=== PATIENT | female | born 1955 | race Caucasian/White ===

== ENCOUNTER → 2016-03-13 | Outpatient (CLI) | payer MEDICARE, OTHER ==
--- NOTE | 2016-03-13 15:19 | MR ---
EXAMINATION TYPE: MR lumbar spine wo con DATE OF EXAM: 03/13/2016 11:09 AM COMPARISON: NONE HISTORY: low back pain for approx. 12 months radiating into left buttocks and thigh, no known trauma / surgery. Spinal stenosis and radiculopathy per order. TECHNIQUE: Multiplanar, multisequence imaging of the lumbar spine is performed without IV contrast. FINDINGS: There is mild height loss superior L5 endplate without suspicious edema otherwise sagittal images of the lumbar spine show vertebral body heights and alignment to appear satisfactory. Multilev el disc desiccation is present. There is multilevel disc space narrowing with relative sparing of L4- L5 and L5-S1 levels. Small multilevel posterior disc herniations are seen on sagittal images. The co nus medullaris is normal in position and signal ending at inferior L1 vertebral body level. Small hem angioma superior L1 vertebral body level is noted. Mild multilevel anterior spurring is present Axial images show the T12-L1 level to a mild broad disc bulge mildly effacing the anterior thecal sac with mild facet degenerative changes and ligament flavum hypertrophy effacing the posterior lateral thecal sac on axial image 30. Bilateral neural foramina are patent. Axial images at the L1-L2 level show mild to moderate broad disc bulge effacing anterior thecal sac a nd axial image 25. Bilateral neural foramina are minimally narrowed. Axial images at L2-L3 level show mild to moderate broad disc bulge effacing anterior thecal sac on ax ial image 20. There is mild to moderate right and mild left-sided neural foraminal narrowing identifi ed at this level. Axial images at the L3-L4 level shows central disc protrusion effacing anterior thecal sac. There is mild facet degenerative changes and ligamentum flavum hypertrophy. There is mild right greater than l eft neural foraminal narrowing at this level identified. Axial images at the L4-L5 level show moderate to advanced facet degenerative changes bilaterally. The re is slight spondylolisthesis. There is broad-based central disc protrusion minimally effacing anter ior thecal sac. There is mild bilateral anterior inferior neural foraminal narrowing at this level id entified. Axial images at L5-S1 level show moderate facet degenerative changes bilaterally. There is right para central disc protrusion minimally effacing anterior thecal sac. Bilateral neural foramina are patent. IMPRESSION: Multilevel degenerative changes in the lumbar spine as detailed above.
== END | disposition home or self-care (01) ==
LOC: RADMRIMAIN 10:29
PROVIDERS: ATTEND Anesthesiology Pain Medicine
DX: M47.816 Spondylosis without myelopathy or radiculopathy, lumbar region (principal); Z87.39 Personal history of other diseases of the musculoskeletal system and connective tissue
CPT/HCPCS: 72148

== ENCOUNTER 2016-09-15 12:45 | Emergency (ER) | payer MEDICARE ==
[2016-09-15 13:08] VITALS: BP 140/69; PULSE 91; RESP 17; TEMP 98.6
--- NOTE | 2016-09-15 13:13 | ED ---
General Adult HPI - General Chief complaint: Extremity Injury, Lower Stated complaint: Fall, ankle injury Time Seen by Provider: 09/15/16 13:09 Source: patient, RN notes reviewed Mode of arrival: wheelchair Limitations: no limitations - History of Present Illness Initial comments: Patient 61-year-old female who presents emergency room today with chief complaint of needing x-rays of her right ankle. She does admit that she rolled her right ankle 5 days ago. States she went to the family doctor earlier today but they could not perform x-rays there. He states that she was [facility] and they're x-ray tech was unavailable so she came here to the emergency room. Patient does admit to pain throughout the right ankle and down to the right foot. She denies any other complaints or symptoms at this time. Patient denies any recent fever, chills, shortness of breath, chest pain, back pain, abdominal pain, nausea or vomiting, dysuria or hematuria, constipation or diarrhea, headaches or visual changes, or any other complaints. - Related Data Home Medications Medication Instructions Recorded Confirmed HYDROcodone/APAP 7.5-325MG [[place] 7.5 - 325 mg PO TID 10/19/15 09/15/16 7.5-325] Topiramate [Topamax] 100 mg PO BID 10/19/15 09/15/16 Previous Rx's Medication Instructions Recorded Hydrocodone/Acetaminophen [[place] 1 each PO Q6HR PRN #15 tab 09/15/16 5-325] Allergies Allergy/AdvReac Type Severity Reaction Status Date / Time cephalexin monohydrate Allergy Unknown Verified 09/15/16 13:37 [From Keflex] clarithromycin [From Biaxin] Allergy Unknown Verified 09/15/16 13:37 NSAIDS (Non-Steroidal Allergy Unknown Verified 09/15/16 13:37 Anti-Inflamma Review of Systems ROS Statement: Those systems with pertinent positive or pertinent negative responses have been documented in the HPI. ROS Other: All systems not noted in ROS Statement are negative. Past Medical History Past Medical History: Diabetes Mellitus, Hypertension, Osteoarthritis (OA) History of Any Multi-Drug Resistant Organisms: None Reported Past Surgical History: Orthopedic Surgery, Tonsillectomy, Tubal Ligation Additional Past Surgical History / Comment(s): cataracts Past Psychological History: Depression Smoking Status: Current every day smoker Past Alcohol Use History: None Reported Past Drug Use History: None Reported General Exam - General Exam Comments Initial Comments: General: The patient is awake and alert, in no distress, and does not appear acutely ill. Neck: The neck is supple, there is no tenderness or JVD. Cardiovascular: There is a regular rate and rhythm. No murmur, rub or gallop is appreciated. Respiratory: Lungs are clear to auscultation, respirations are non-labored, breath sounds are equal. No wheezes, stridor, rales, or rhonchi. Musculoskeletal: Patient does have bruising swelling down to the right ankle some mild swelling at this time. Patient shows good range of motion both plantar and dorsiflexion. Full range of motion of the right knee and onto the right toes. Patient does have mild tenderness on exam to the fibular head. Mild tenderness to both the lateral and medial malleolus. Mild tenderness throughout the metatarsals on exam. Sensations are intact. No tenderness down to the digits. Cap refill less than 2 seconds. Pulses bilaterally 2+. Neurological: A&O x 3. CN II-XII intact, There are no obvious motor or sensory deficits. Coordination appears grossly intact. Speech is normal. Skin: Skin is warm and dry and no rashes or lesions are noted. Psychiatric: Normal mood and affect. Limitations: no limitations Course Vital Signs 09/15/16 13:05 Temperature 98.6 F Pulse Rate 91 Respiratory 17 Rate Blood Pressure 140/69 O2 Sat by Pulse 99 Oximetry Medical Decision Making - Medical Decision Making X-rays reviewed and does show an avulsion fracture of the lateral malleolus. These results were discussed with the patient. She is advised to follow-up with orthopedics. Advised to use her crutches that she states she has at home with nonweightbearing. Advised to continue to ice elevate. Patient will be given short prescription of pain medication. Disposition Clinical Impression: Ankle fracture Disposition: HOME SELF-CARE Condition: Good Instructions: Ankle Fracture (ED) Additional Instructions: Please leave splint in place until follow-up with orthopedics over the next 2 days. Please continue to ice elevate as discussed. Please use crutches with nonweightbearing. Please be medication as prescribed and return to emergency room for any other concerns. Prescriptions: Hydrocodone/Acetaminophen [[place] 5-325] 1 each PO Q6HR PRN #15 tab PRN Reason: Pain Referrals: Giovana Warren MD [Primary Care Provider] - 1-2 days Osvaldo Garcia MD [STAFF PHYSICIAN] - 1-2 days Time of Disposition: 13:50
--- NOTE | 2016-09-15 13:33 | XR ---
EXAMINATION TYPE: XR tibia fibula RT DATE OF EXAM: 09/15/2016 COMPARISON: NONE HISTORY: Pain TECHNIQUE: Two views are submitted. FINDINGS: The osseous structures are intact. The joint spaces are preserved. Postsurgical change involving th e knee. Diffuse osteopenia noted. Cortical thickening and possible previous trauma proximal fibula. IMPRESSION: 1. No acute osseous abnormality.
--- NOTE | 2016-09-15 13:34 | XR ---
EXAMINATION TYPE: XR foot complete RT DATE OF EXAM: 09/15/2016 COMPARISON: NONE HISTORY: Pain TECHNIQUE: Three views are submitted. FINDINGS: The osseous structures are intact. There is no acute fracture or dislocation. Diffuse osteopenia and arthropathy of the first MTP joint. IMPRESSION: 1. No acute fracture or dislocation. If symptoms persist, follow-up exam in 7 to 10 days could be ob tained.
--- NOTE | 2016-09-15 13:36 | XR ---
EXAMINATION TYPE: XR ankle complete RT DATE OF EXAM: 09/15/2016 COMPARISON: NONE HISTORY: Pain FINDINGS: Three views of the ankle demonstrate the ankle mortise to be intact and symmetric. There is soft tiss ue edema and findings suggestive of an avulsion fracture lateral malleolus. Diffuse osteopenia noted. IMPRESSION: 1. Correlate for avulsion fracture lateral malleolus.
== END 2016-09-15 14:05 | disposition home or self-care (01) ==
LOC: EC 12:45
DX: S82.61XA Displaced fracture of lateral malleolus of right fibula, initial encounter for closed fracture (principal); M19.90 Unspecified osteoarthritis, unspecified site; F17.200 Nicotine dependence, unspecified, uncomplicated; Z88.1 Allergy status to other antibiotic agents; Z88.6 Allergy status to analgesic agent; Z79.891 Long term (current) use of opiate analgesic; Z79.899 Other long term (current) drug therapy; X50.1XXA Overexertion from prolonged static or awkward postures, initial encounter
CPT/HCPCS: 99283

== ENCOUNTER 2016-10-27 12:01 | Emergency (ER) | payer MEDICARE ==
[2016-10-27 12:09] VITALS: TEMP 98.2
--- NOTE | 2016-10-27 12:24 | ED ---
General Adult HPI - General Chief complaint: Recheck/Abnormal Lab/Rx Stated complaint: LEFT SIDE PAIN Time Seen by Provider: 10/27/16 12:19 Source: patient, RN notes reviewed, old records reviewed Mode of arrival: wheelchair Limitations: no limitations - History of Present Illness Initial comments: This is a 61-year-old female ER for evaluation regards to multiple complaints and issues. Patient complaining of a fall, left rib pain, left side pain. No abdominal pain, no nausea vomiting, no modifying factors or symptoms. Patient also complains of diffuse rash that appears to congophilic couple days. A chest pain shortness of breath or abdominal pain. No fevers. No bowel or bladder issues - Related Data Home Medications Medication Instructions Recorded Confirmed Gabapentin 800 mg PO TID 10/27/16 10/27/16 metFORMIN HCL 1,000 mg PO BID 10/27/16 10/27/16 Allergies Allergy/AdvReac Type Severity Reaction Status Date / Time cephalexin monohydrate Allergy Unknown Verified 10/27/16 12:39 [From Keflex] clarithromycin [From Biaxin] Allergy Unknown Verified 10/27/16 12:39 NSAIDS (Non-Steroidal Allergy Unknown Verified 10/27/16 12:39 Anti-Inflamma Review of Systems ROS Statement: Those systems with pertinent positive or pertinent negative responses have been documented in the HPI. ROS Other: All systems not noted in ROS Statement are negative. Past Medical History Past Medical History: Diabetes Mellitus, Hypertension, Osteoarthritis (OA) History of Any Multi-Drug Resistant Organisms: None Reported Past Surgical History: Orthopedic Surgery, Tonsillectomy, Tubal Ligation Additional Past Surgical History / Comment(s): cataracts Past Psychological History: Depression Smoking Status: Current every day smoker Past Alcohol Use History: None Reported Past Drug Use History: None Reported General Exam Limitations: no limitations General appearance: alert, in no apparent distress Head exam: Present: atraumatic, normocephalic, normal inspection Eye exam: Present: normal appearance, PERRL, EOMI. Absent: scleral icterus, conjunctival injection, periorbital swelling ENT exam: Present: normal exam, mucous membranes moist Neck exam: Present: normal inspection. Absent: tenderness, meningismus, lymphadenopathy Respiratory exam: Present: normal lung sounds bilaterally. Absent: respiratory distress, wheezes, rales, rhonchi, stridor Cardiovascular Exam: Present: regular rate, normal rhythm, normal heart sounds. Absent: systolic murmur, diastolic murmur, rubs, gallop, clicks GI/Abdominal exam: Present: soft, normal bowel sounds. Absent: distended, tenderness, guarding, rebound, rigid Extremities exam: Present: normal inspection, full ROM, normal capillary refill. Absent: tenderness, pedal edema, joint swelling, calf tenderness Back exam: Present: normal inspection Neurological exam: Present: alert, oriented X3, CN II-XII intact Psychiatric exam: Present: normal affect, normal mood Skin exam: Present: warm, dry, intact, normal color. Absent: rash Course Vital Signs 10/27/16 10/27/16 12:04 13:32 Temperature 98.2 F Pulse Rate 101 H 80 Respiratory 18 16 Rate Blood Pressure 144/78 163/87 O2 Sat by Pulse 100 96 Oximetry - Reevaluation(s) Reevaluation #1: 10/27/16 14:25 At this time patient symptoms are unchanged EKG Findings - EKG Comments: EKG Findings:: EKG shows normal sinus rhythm of 79, [place] 144, QRS 92, QTC 396 Medical Decision Making - Medical Decision Making 61 female at EMS status post fall and weakness. Patient complaining of rash. Rash is not visible at this time. Patient has left rib contusion, x-rays and laboratory otherwise negative. Patient will be discharged home - Lab Data Result diagrams: 10/27/16 13:25 10/27/16 13:25 Lab Results 10/27/16 10/27/16 10/27/16 Range/Units 13:25 13:25 13:25 WBC 5.0 (3.8-10.6) k/uL RBC 4.05 (3.80-5.40) m/uL Hgb 12.7 (11.4-16.0) gm/dL Hct 37.8 (34.0-46.0) % MCV 93.2 (80.0-100.0) fL MCH 31.3 (25.0-35.0) pg MCHC 33.6 (31.0-37.0) g/dL RDW 15.0 (11.5-15.5) % Plt Count 213 (150-450) k/uL Neutrophils % 74 % Lymphocytes % 21 % Monocytes % 3 % Eosinophils % 1 % Basophils % 0 % Neutrophils # 3.7 (1.3-7.7) k/uL Lymphocytes # 1.1 (1.0-4.8) k/uL Monocytes # 0.2 (0-1.0) k/uL Eosinophils # 0.0 (0-0.7) k/uL Basophils # 0.0 (0-0.2) k/uL Sodium 137 (137-145) mmol/L Potassium 4.9 (3.5-5.1) mmol/L Chloride 103 (98-107) mmol/L Carbon Dioxide 25 (22-30) mmol/L Anion Gap 9 mmol/L BUN 10 (7-17) mg/dL Creatinine 0.50 L (0.52-1.04) mg/dL Est GFR (MDRD) Af Amer >60 (>60 ml/min/1.73 sqM) Est GFR (MDRD) Non-Af >60 (>60 ml/min/1.73 sqM) Glucose 122 H (74-99) mg/dL Calcium 9.3 (8.4-10.2) mg/dL Phosphorus 4.4 (2.5-4.5) mg/dL Magnesium 1.3 L (1.6-2.3) mg/dL Total Bilirubin 0.4 (0.2-1.3) mg/dL AST 22 (14-36) U/L ALT 29 (9-52) U/L Alkaline Phosphatase 64 (38-126) U/L Total Creatine Kinase 24 L (30-135) U/L CK-MB (CK-2) 0.6 (0.0-2.4) ng/mL CK-MB (CK-2) Rel Index 2.5 Troponin I <0.012 (0.000-0.034) ng/mL Total Protein 6.3 (6.3-8.2) g/dL Albumin 3.6 (3.5-5.0) g/dL - Radiology Data Radiology results: report reviewed (X-ray RIBS study, chest is negative for acute fracture or traumatic injury), image reviewed Disposition Clinical Impression: Weakness, Fall, Rib contusion Disposition: HOME SELF-CARE Condition: Good Instructions: Fall Prevention for Older Adults (ED) Referrals: Giovana Warren MD [Primary Care Provider] - 1-2 days
[2016-10-27] MEDS ORDERED: SODIUM CHLORIDE 0.9% 1,000 ML IV STA (13:05)
[2016-10-27] MEDS ORDERED: MORPHINE SULFATE 4 MG/ML SYRINGE IV STA (13:05)
[2016-10-27 13:39] LABS: Basophils % (A) 0 %; CH 32.1; CHCM 34.6; Eosinophils % (A) 1 %; HCT 37.8 % (34.0-46.0); HDW 2.81; HGB 12.7 gm/dL (11.4-16.0); Luc # (Auto) 0.06; Luc % (Auto) 1; Lymphocytes # (A) 1.1 k/uL (1.0-4.8); Lymphocytes % (A) 21 %; MCH 31.3 pg (25.0-35.0); MCHC 33.6 g/dL (31.0-37.0); MCV 93.2 fL (80.0-100.0); Mean Platelet Volume 7.4; Monocytes # (A) 0.2 k/uL (0-1.0); Monocytes % (A) 3 %; Neutrophils # (A) 3.7 k/uL (1.3-7.7); Neutrophils % (A) 74 %; RBC 4.05 m/uL (3.80-5.40); WBC (Perox) 4.99
--- NOTE | 2016-10-27 14:00 | XR ---
EXAMINATION TYPE: XR ribs LT w pa chest xray DATE OF EXAM: 10/27/2016 COMPARISON: NONE HISTORY: Pain left ribs TECHNIQUE: 3 views submitted FINDINGS: Lungs are clear. No pneumothorax. Mild diffuse osteopenia. Arthropathy of the shoulders. Hy pertrophic and degenerative change of the spine. No consolidation. Rib cage is intact. IMPRESSION: 1. No acute displaced rib fracture. 2. Shoulder arthropathy. Findings may been the basis of hypertrophic arthropathy. Osteochondroma less likely consideration and in the differential diagnosis.
[2016-10-27 14:01] LABS: ALT 29 U/L (9-52); AST 22 U/L (14-36); Alkaline Phosphatase 64 U/L (38-126); Anion Gap 9 mmol/L; Blood Urea Nitrogen 10 mg/dL (7-17); Calcium 9.3 mg/dL (8.4-10.2); Carbon Dioxide 25 mmol/L (22-30); Chloride 103 mmol/L (98-107); Creatine Kinase 24 U/L (30-135); Glucose 122 mg/dL (74-99); Magnesium 1.3 mg/dL (1.6-2.3); Non-African American GFR(MDRD) >60 (>60 ml/min/1.73 sqM); Phosphorous 4.4 mg/dL (2.5-4.5); Sodium 137 mmol/L (137-145); Total Bilirubin 0.4 mg/dL (0.2-1.3); Total Protein 6.3 g/dL (6.3-8.2)
[2016-10-27 14:13] LABS: Creatine Kinase MB 0.6 ng/mL (0.0-2.4); Troponin I <0.012 ng/mL (0.000-0.034)
[2016-10-27 14:27] LABS: Potassium 4.9 mmol/L (3.5-5.1)
[2016-10-27 14:56] VITALS: BP 147/79; PULSE 72; RESP 18
== END 2016-10-27 14:56 | disposition home or self-care (01) ==
LOC: EC 12:01
DX: S20.212A Contusion of left front wall of thorax, initial encounter (principal); R53.1 Weakness; E11.9 Type 2 diabetes mellitus without complications; F17.200 Nicotine dependence, unspecified, uncomplicated; Z79.84 Long term (current) use of oral hypoglycemic drugs; Z79.899 Other long term (current) drug therapy; Z88.1 Allergy status to other antibiotic agents; Z88.6 Allergy status to analgesic agent; W19.XXXA Unspecified fall, initial encounter
CPT/HCPCS: 36415; 93005; 80053; 82550; 82553; 83735; 84100; 84484; 85025; 71101; 99284; 96374; 96361; J2270

== ENCOUNTER 2018-08-02 15:31 | Emergency (ER) | payer MEDICARE ==
[2018-08-02 17:02] LABS: Basophils % (A) 0 %; Eosinophils # (A) 0.1 k/uL (0-0.7); Eosinophils % (A) 1 %; HCT 41.4 % (34.0-46.0); HGB 14.3 gm/dL (11.4-16.0); Lymphocytes # (A) 1.9 k/uL (1.0-4.8); Lymphocytes % (A) 21 %; MCHC 34.5 g/dL (31.0-37.0); MCV 89.8 fL (80.0-100.0); Mean Platelet Volume 7.8; Monocytes # (A) 0.3 k/uL (0-1.0); Monocytes % (A) 3 %; Neutrophils # (A) 6.8 k/uL (1.3-7.7); Neutrophils % (A) 74 %; Platelet Count 177 k/uL (150-450); RBC 4.61 m/uL (3.80-5.40); RDW 12.9 % (11.5-15.5); WBC 9.2 k/uL (3.8-10.6)
[2018-08-02 17:04] LABS: ALT 12 U/L (9-52); AST 20 U/L (14-36); Albumin 4.9 g/dL (3.5-5.0); Alkaline Phosphatase 64 U/L (38-126); Anion Gap 12 mmol/L; Blood Urea Nitrogen 9 mg/dL (7-17); Carbon Dioxide 24 mmol/L (22-30); Chloride 98 mmol/L (98-107); Glucose 114 mg/dL (74-99); Potassium 4.7 mmol/L (3.5-5.1); Sodium 134 mmol/L (137-145); Total Bilirubin 0.5 mg/dL (0.2-1.3); Total Protein 7.4 g/dL (6.3-8.2)
[2018-08-02] MEDS ORDERED: ONDANSETRON 4 MG/2 ML VIAL IVP STA (17:14)
[2018-08-02] MEDS ORDERED: SODIUM CHLORIDE 0.9% 1,000 ML IV ONE (17:14)
[2018-08-02] MEDS ORDERED: MORPHINE SULFATE 4 MG/ML SYRINGE IVP STA (17:14)
[2018-08-02 17:19] LABS: Appearance,Urine Clear (Clear); Bilirubin,Urine Negative (Negative); Blood,Urine Trace (Negative); Color,Urine Light Yellow; Glucose,Urine (UA) Negative (Negative); Ketones,Urine 2+ (Negative); Leukocyte Esterase,Urine Negative (Negative); Mucus,Urine Rare /hpf; Nitrite,Urine Negative (Negative); PH, Urine 5.5 (5.0-8.0); Protein,Urine Negative (Negative); RBC,Urine <1 /hpf (0-5); Specific Gravity,Urine 1.015 (1.001-1.035); Squamous Epithelial Cell,Urine 1 /hpf (0-4); Urobilinogen,Urine <2.0 mg/dL (<2.0); WBC,Urine 1 /hpf (0-5)
--- NOTE | 2018-08-02 17:19 | ED ---
General Adult HPI - General Chief complaint: Fever Stated complaint: Fever, Diarrhea, cough Time Seen by Provider: 08/02/18 17:02 Source: patient Mode of arrival: wheelchair Limitations: no limitations - History of Present Illness Initial comments: 63-year-old female patient presents to the emergency department today for evaluation of multiple complaints. Patient states that she has been sick for the last week and a half. Patient states she is having nasal congestion and drainage, cough, fever, and chills. Patient states she has also been having d iarrhea intermittently over the last week and a half. States she has had no appetite and hasn't eaten or drank anything since Tuesday. Patient states she has not checked her temperature but has felt chilled and then very hot. Patient states that her cough is productive of clear sputum. She denies any shortness of breath or chest pain with this. States that she is having bilateral ear pressure and pain as well. States she feels generally weak and unwell. Patient denies any recent rash, abdominal pain, nausea, vomiting, numbness, tingling, dizziness, weakness, hematuria, dysuria, urinary urgency, urinary frequency, headache, visual changes, or any other complaints. - Related Data Home Medications Medication Instructions Recorded Confirmed Gabapentin 800 mg PO TID 10/27/16 08/02/18 DULoxetine HCL [Cymbalta] 60 mg PO BID 08/02/18 08/02/18 Ezetimibe [Zetia] 10 mg PO DAILY@1700 08/02/18 08/02/18 HYDROcodone/APAP 10-325MG [[place] 1 tab PO QID 08/02/18 08/02/18 10-325] Levothyroxine Sodium [Synthroid] 25 mcg PO DAILY 08/02/18 08/02/18 Morphine Sulfate ER [Ms Contin] 30 mg PO BID 08/02/18 08/02/18 levETIRAcetam [Keppra] 1,000 mg PO BID 08/02/18 08/02/18 metFORMIN HCL [Glucophage] 500 mg PO BID 08/02/18 08/02/18 traZODone HCL 100 mg PO HS 08/02/18 08/02/18 Previous Rx's Medication Instructions Recorded Promethazine 6.25MG/5Ml [Phenergan 6.25 mg PO Q6H #100 ml 08/02/18 Syrup] predniSONE 50 mg PO DAILY #5 tablet 08/02/18 Allergies Allergy/AdvReac Type Severity Reaction Status Date / Time cephalexin monohydrate Allergy Unknown Verified 08/02/18 17:32 [From Keflex] Cephalosporins Allergy Unknown Verified 08/02/18 17:32 clarithromycin [From Biaxin] Allergy Unknown Verified 08/02/18 17:32 NSAIDS (Non-Steroidal Allergy Unknown Verified 08/02/18 17:32 Anti-Inflamma Review of Systems ROS Statement: Those systems with pertinent positive or pertinent negative responses have been documented in the HPI. ROS Other: All systems not noted in ROS Statement are negative. Past Medical History Past Medical History: Diabetes Mellitus, Hypertension, Osteoarthritis (OA) History of Any Multi-Drug Resistant Organisms: None Reported Past Surgical History: Orthopedic Surgery, Tonsillectomy, Tubal Ligation Additional Past Surgical History / Comment(s): cataracts Past Psychological History: Depression Smoking Status: Current every day smoker Past Alcohol Use History: None Reported Past Drug Use History: None Reported General Exam Limitations: no limitations General appearance: alert, in no apparent distress, other (This is a well- developed, thin appearing adult female patient in no acute distress. Vital signs upon presentation are temperature 98.6F, pulse 89, respirations 18, blood pressure 142/95, pulse ox 97% on room air.) Eye exam: Present: normal appearance, PERRL, EOMI. Absent: scleral icterus, conjunctival injection, periorbital swelling ENT exam: Present: normal exam, normal oropharynx, mucous membranes moist, TM's normal bilaterally Neck exam: Present: normal inspection. Absent: tenderness, meningismus, lymphadenopathy Respiratory exam: Present: normal lung sounds bilaterally. Absent: respiratory distress, wheezes, rales, rhonchi, stridor Cardiovascular Exam: Present: regular rate, normal rhythm, normal heart sounds. Absent: systolic murmur, diastolic murmur, rubs, gallop, clicks GI/Abdominal exam: Present: soft, normal bowel sounds. Absent: distended, tenderness, guarding, rebound, rigid Neurological exam: Present: alert, oriented X3, CN II-XII intact Psychiatric exam: Present: normal affect, normal mood Skin exam: Present: warm, dry, intact, normal color. Absent: rash Course Vital Signs 08/02/18 15:46 Temperature 98.6 F Pulse Rate 89 Respiratory 18 Rate Blood Pressure 142/95 O2 Sat by Pulse 97 Oximetry Medical Decision Making - Medical Decision Making 63-year-old female patient presented to the emergency department today for evaluation of cough, nasal congestion, and diarrhea. Physical examination revealed clear equal lung sounds. Soft nontender abdomen. She is afebrile with normal vital signs. Labs reviewed and were unremarkable. Normal white blood cell count. No evidence for urinary tract infection. Chest x-ray was obtained and showed no acute cardiopulmonary process. Patient symptoms are consistent with acute bronchitis and viral upper respiratory infection. She'll be started on prednisone and Phenergan for cough. She is instructed to follow-up with her primary care physician for recheck in 1-2 days. Return parameters were discussed in detail. She verbalizes understanding and agrees this plan. - Lab Data Result diagrams: 08/02/18 16:40 08/02/18 16:40 Lab Results 08/02/18 08/02/18 08/02/18 Range/Units 16:40 16:40 16:40 WBC 9.2 (3.8-10.6) k/uL RBC 4.61 (3.80-5.40) m/uL Hgb 14.3 (11.4-16.0) gm/dL Hct 41.4 (34.0-46.0) % MCV 89.8 (80.0-100.0) fL MCH 31.0 (25.0-35.0) pg MCHC 34.5 (31.0-37.0) g/dL RDW 12.9 (11.5-15.5) % Plt Count 177 (150-450) k/uL Neutrophils % 74 % Lymphocytes % 21 % Monocytes % 3 % Eosinophils % 1 % Basophils % 0 % Neutrophils # 6.8 (1.3-7.7) k/uL Lymphocytes # 1.9 (1.0-4.8) k/uL Monocytes # 0.3 (0-1.0) k/uL Eosinophils # 0.1 (0-0.7) k/uL Basophils # 0.0 (0-0.2) k/uL Sodium 134 L (137-145) mmol/L Potassium 4.7 (3.5-5.1) mmol/L Chloride 98 (98-107) mmol/L Carbon Dioxide 24 (22-30) mmol/L Anion Gap 12 mmol/L BUN 9 (7-17) mg/dL Creatinine 0.54 (0.52-1.04) mg/dL Est GFR (CKD-EPI)AfAm >90 (>60 ml/min/1.73 sqM) Est GFR (CKD-EPI)NonAf >90 (>60 ml/min/1.73 sqM) Glucose 114 H (74-99) mg/dL Calcium 10.0 (8.4-10.2) mg/dL Total Bilirubin 0.5 (0.2-1.3) mg/dL AST 20 (14-36) U/L ALT 12 (9-52) U/L Alkaline Phosphatase 64 (38-126) U/L Total Protein 7.4 (6.3-8.2) g/dL Albumin 4.9 (3.5-5.0) g/dL Urine Color Light Yellow Urine Appearance Clear (Clear) Urine pH 5.5 (5.0-8.0) Ur Specific Roby 1.015 (1.001-1.035) Urine Protein Negative (Negative) Urine Glucose (UA) Negative (Negative) Urine Ketones 2+ H (Negative) Urine Blood Trace H (Negative) Urine Nitrite Negative (Negative) Urine Bilirubin Negative (Negative) Urine Urobilinogen <2.0 (<2.0) mg/dL Ur Leukocyte Esterase Negative (Negative) Urine RBC <1 (0-5) /hpf Urine WBC 1 (0-5) /hpf Ur Squamous Epith Cells 1 (0-4) /hpf Urine Mucus Rare H (None) /hpf - Radiology Data Radiology results: report reviewed, image reviewed Two-view x-ray of the chest is obtained. Report reviewed in its entirety. Impression by Dr. Joanna Barone shows no acute process. Disposition Clinical Impression: Viral syndrome, Acute bronchitis Disposition: HOME SELF-CARE Condition: Good Instructions (If sedation given, give patient instructions): Acute Bronchitis (ED), Viral Syndrome (ED) Additional Instructions: Take medications as directed. Follow up with your primary care physician for recheck in 1-2 days. Return to the emergency department immediately for any new, worsening, or concerning symptoms. Prescriptions: Promethazine 6.25MG/5Ml [Phenergan Syrup] 6.25 mg PO Q6H #100 ml predniSONE 50 mg PO DAILY #5 tablet Is patient prescribed a controlled substance at d/c from ED?: No Referrals: None,Stated [Primary Care Provider] - 1-2 days Time of Disposition: 18:55
--- NOTE | 2018-08-02 18:32 | XR ---
EXAMINATION: XR chest 2V DATE AND TIME: 08/02/2018 5:37 PM CLINICAL INDICATION: PHH; Pain TECHNIQUE: Departmental protocol COMPARISON: 10/27/2016 FINDINGS: The lungs are clear. The pleural spaces are negative. The cardiac silhouette is not enlarged. The remainder of the mediastinal silhouette is unremarkable. The skeletal structures and soft tissues are negative for acute findings. IMPRESSION: NO ACUTE PROCESS.
[2018-08-02] MEDS ORDERED: predniSONE 50 MG TAB PO STA (18:51)
[2018-08-02 19:43] VITALS: BP 147/88; PULSE 88; RESP 16; TEMP 97.6
== END 2018-08-02 19:43 | disposition home or self-care (01) ==
LOC: EC 15:31
DX: B34.9 Viral infection, unspecified (principal); J20.9 Acute bronchitis, unspecified; E11.9 Type 2 diabetes mellitus without complications; M19.90 Unspecified osteoarthritis, unspecified site; F32.9 Major depressive disorder, single episode, unspecified; F17.200 Nicotine dependence, unspecified, uncomplicated; Z79.891 Long term (current) use of opiate analgesic; Z79.890 Hormone replacement therapy; Z79.84 Long term (current) use of oral hypoglycemic drugs; Z79.899 Other long term (current) drug therapy; Z88.1 Allergy status to other antibiotic agents; Z88.6 Allergy status to analgesic agent; Z53.29 Procedure and treatment not carried out because of patient's decision for other reasons
CPT/HCPCS: 36415; 80053; 85025; 81001; 71046; 99283; 96374; 96375; 96361 ×2; J2270; J2405

== ENCOUNTER → 2019-04-06 | Outpatient (CLI) | payer MEDICARE, OTHER ==
--- NOTE | 2019-04-06 08:03 | MR ---
MRI CERVICAL SPINE: CLINICAL HISTORY: Cervical stenosis and HNP per order. Headaches with neck pain for over 20 years cau sing pain or weakness into both arms and fingers per patient. TECHNIQUE: Multiplanar, multisequence imaging of the cervical spine is performed without and with IV contrast, 4.5 cc of gadolinium was given intravenously. COMPARISON: None at this institution.. FINDINGS: Sagittal images of the cervical spine show the craniocervical junction to appear within nor mal limits. The cervical and upper thoracic spinal cord is normal in caliber and signal. Slight grad e 1 retrolisthesis C5 on C6. The vertebral body heights are normal. Mild to moderate disc space leslie rowing C5-C6 level. The bone marrow signal intensity is within normal limits. No suspicious enhanceme nt is seen. Axial images show the C2-C3 level to appear within normal limits. Axial images at C3-C4 level shows tiny central disc protrusion minimally effacing anterior thecal sac . Axial images at C4-C5 level showed broad based posterior disc protrusion mildly effacing the anterior thecal sac and causing perhaps mild bilateral neural foraminal narrowing. Axial images at C5-C6 levels with spondylolisthesis with broad based right paracentral disc protrusio n effacing anterior thecal sac and causing moderate to severe bilateral neural foraminal narrowing. Axial images at C6-C7 level due to mild broad based disc protrusion mildly facing anterior thecal sac and causing [id number] left greater than right bilateral neural foraminal narrowing. Axial images at C7-T1 level show focal central disc protrusion mildly effacing the anterior thecal sa c, bilateral neural foramina are patent. IMPRESSION: Spondylolisthesis and degenerative change most prominent C5-C6 level as detailed above. A dditional multilevel more mild degenerative changes are noted as detailed above.
== END | disposition home or self-care (01) ==
LOC: RADMRIMAIN 07:08
PROVIDERS: ATTEND Anesthesiology Pain Medicine
DX: M48.02 Spinal stenosis, cervical region (principal); M50.21 Other cervical disc displacement, high cervical region; M43.12 Spondylolisthesis, cervical region; M47.812 Spondylosis without myelopathy or radiculopathy, cervical region
CPT/HCPCS: 72156; A9585

== ENCOUNTER 2022-09-05 16:46 | Inpatient (IN) | payer MEDICARE, OTHER ==
[2022-09-05] MEDS ORDERED: HEPARIN SODIUM 1,000 UN/ML (10ML VL) IV PRN (17:22)
[2022-09-05] MEDS ORDERED: HEPARIN SODIUM 1,000 UN/ML (10ML VL) IV ONE (17:22)
[2022-09-05] MEDS ORDERED: HEPARIN SOD,PORK IN 0.45% NACL 25,000 UNIT in 0.45% NACL 1 250ML.BAG IV SCH (17:30)
[2022-09-05] MEDS ORDERED: MORPHINE SULFATE 4 MG/ML SYRINGE IV STA (17:33)
[2022-09-05] MEDS ORDERED: ASPIRIN 81 MG PO STA (17:33)
--- NOTE | 2022-09-05 17:42 | XR ---
EXAMINATION TYPE: XR chest 1V portable DATE OF EXAM: 09/05/2022 COMPARISON: 08/02/2018 HISTORY: Chest pain TECHNIQUE: Single frontal view of the chest is obtained. FINDINGS: There is no focal air space opacity, pleural effusion, or pneumothorax seen. The cardiac silhouette size is within normal limits. The osseous structures are intact. IMPRESSION: No acute process.
[2022-09-05 17:44] LABS: Basophils % (A) 0 %; Eosinophils # (A) 0.1 k/uL (0-0.7); Eosinophils % (A) 2 %; HGB 12.7 gm/dL (11.4-16.0); Lymphocytes # (A) 0.8 k/uL (1.0-4.8); Lymphocytes % (A) 13 %; MCH 33.6 pg (25.0-35.0); MCHC 34.3 g/dL (31.0-37.0); Mean Platelet Volume 7.6; Monocytes # (A) 0.1 k/uL (0-1.0); Monocytes % (A) 2 %; Neutrophils # (A) 5.4 k/uL (1.3-7.7); Neutrophils % (A) 83 %; Platelet Count 164 k/uL (150-450); RBC 3.77 m/uL (3.80-5.40); RDW 12.3 % (11.5-15.5); WBC 6.5 k/uL (3.8-10.6)
[2022-09-05 17:57] LABS: ALT 16 U/L (4-34); African American GFR (CKD) >90 (>60 ml/min/1.73 sqM); Albumin 4.6 g/dL (3.5-5.0); Anion Gap 15 mmol/L; Blood Urea Nitrogen 12 mg/dL (7-17); Calcium 9.3 mg/dL (8.4-10.2); Carbon Dioxide 23 mmol/L (22-30); Chloride 97 mmol/L (98-107); Glucose 160 mg/dL (74-99); Lipase 17 U/L (23-300); Non-African American GFR(CKD) >90 (>60 ml/min/1.73 sqM); Sodium 135 mmol/L (137-145); Total Bilirubin 0.9 mg/dL (0.2-1.3); Total Protein 7.2 g/dL (6.3-8.2)
[2022-09-05 18:01] LABS: AST 31 U/L (14-36); Alkaline Phosphatase 59 U/L (38-126); Potassium 4.3 mmol/L (3.5-5.1)
--- NOTE | 2022-09-05 18:09 | ED ---
General Adult HPI - General Chief complaint: Shortness of Breath Stated complaint: ERWIN Time Seen by Provider: 09/05/22 16:52 Source: patient Mode of arrival: wheelchair - History of Present Illness Initial comments: Dictation was produced using [employer] dictation software. please excuse any grammatical, word or spelling errors. Chief Complaint: 67-year-old female past medical history of diabetes and hypertension presents to the ER for acute shortness of breath History of Present Illness: Patient 67-year-old female presents emergency part for acute onset shortness of breath. Patient states she woke last night feeling short of breath. Denies any chest pain. Denies any associated diaphoresis or nausea. Denies any back pain. Patient does not have any history of coronary disease. No family history of heart attacks. Denies any history of COPD or chr onic pulmonary disease The ROS documented in this emergency department record has been reviewed and confirmed by me. Those systems with pertinent positive or negative responses have been documented in the HPI. All other systems are other negative and/or noncontributory. - Related Data Home Medications Medication Instructions Recorded Confirmed Gabapentin 800 mg PO TID 10/27/16 09/05/22 DULoxetine HCL [Cymbalta] 120 mg PO DAILY 08/02/18 09/05/22 levETIRAcetam [Keppra] 1,000 mg PO BID 08/02/18 09/05/22 metFORMIN HCL [Glucophage] 500 mg PO BID 08/02/18 09/05/22 traZODone HCL 200 mg PO HS 08/02/18 09/05/22 Levothyroxine Sodium [Synthroid] 50 mcg PO DAILY 09/05/22 09/05/22 Methadone [Dolophine] 10 mg PO TID 09/05/22 09/05/22 Montelukast [Singulair] 10 mg PO DAILY 09/05/22 09/05/22 oxyCODONE-APAP 10-325MG [Percocet 1 tab PO TID 09/05/22 09/05/22 10-325 mg] Allergies Allergy/AdvReac Type Severity Reaction Status Date / Time cephalexin monohydrate Allergy Unknown Verified 09/05/22 18:45 [From Keflex] Cephalosporins Allergy Unknown Verified 09/05/22 18:45 clarithromycin [From Biaxin] Allergy Unknown Verified 09/05/22 18:45 NSAIDS (Non-Steroidal Allergy Unknown Verified 09/05/22 18:45 Anti-Inflamma Review of Systems ROS Statement: Those systems with pertinent positive or pertinent negative responses have been documented in the HPI. ROS Other: All systems not noted in ROS Statement are negative. Past Medical History Past Medical History: Diabetes Mellitus, Hypertension, Osteoarthritis (OA) History of Any Multi-Drug Resistant Organisms: None Reported Past Surgical History: Orthopedic Surgery, Tonsillectomy, Tubal Ligation Additional Past Surgical History / Comment(s): cataracts Past Psychological History: Depression Smoking Status: Former smoker Past Alcohol Use History: None Reported Past Drug Use History: None Reported General Exam - General Exam Comments Initial Comments: PHYSICAL EXAM: General Impression: Alert and oriented x3, not in acute distress HEENT: Normocephalic atraumatic, extra-ocular movements intact, pupils equal and reactive to light bilaterally, mucous membranes moist. Cardiovascular: Heart regular rate and rhythm Chest: Able to complete full sentences, no retractions, no tachypnea Abdomen: abdomen soft, non-tender, non-distended, no organomegaly Musculoskeletal: Pulses present and equal in all extremities, no peripheral edema Motor: no focal deficits noted Neurological: CN II-XII grossly intact, no focal motor or sensory deficits noted Skin: Intact with no visualized rashes Psych: Normal affect and mood Course Vital Signs 09/05/22 09/05/22 09/05/22 16:48 17:20 18:31 Temperature 98.6 F 98.5 F Pulse Rate 104 H 94 Respiratory 22 25 H 20 Rate Blood Pressure 159/85 166/101 O2 Sat by Pulse 99 97 Oximetry 09/05/22 09/05/22 19:21 21:00 Temperature Pulse Rate 89 78 Respiratory 16 12 Rate Blood Pressure 171/99 165/87 O2 Sat by Pulse 97 96 Oximetry - Reevaluation(s) Reevaluation #1: 09/05/22 18:09. Clinical presentation, vitals and EKG was discussed with Dr. Ruiz on-call for cardiology. 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 Interval 27, QRS 132, QTc 4:30, left bundle branch block. No NH prolongation, no QTC prolongation, no ST or T-wave changes noted. No sgarbossa criteria to suggest [place] in setting of left bundle branch block. Overall, this EKG is unremarkable. Repeat EKG was performed 8 minutes after the initial EKG without any dynamic changes. Medical Decision Making - Medical Decision Making Was pt. sent in by a medical professional or institution (GARRY Bernal, FORENSIC ECONOMIST, urgent care, hospital, or snf...) When possible be specific @ -No Did you speak to anyone other than the patient for history (EMS, parent, family, police, friend...)? What history was obtained from this source @ -No Did you review nursing and triage notes (agree or disagree)? Why? @ -I reviewed and agree with nursing and triage notes Were old charts reviewed (outside hosp., previous admission, EMS record, old E KG, old radiological studies, urgent care reports/EKG's, snf records)? Report findings @ -No old charts were reviewed Differential Diagnosis (chest pain, altered mental status, abdominal pain women, abdominal pain men, vaginal bleeding, musculoskeletal, weakness, fever, dyspnea, syncope, headache, dizziness, GI bleed, back pain, seizure, CVA, palpatations, mental health)? @ -Differential Dyspnea: Coronary syndrome, arrhythmia, tamponade, asthma, COPD, pulmonary embolism, pneumonia, pneumothorax, pulmonary effusion, anaphylaxis, diabetic ketoacidosis, flailed chest, pulmonary contusion, diaphragmatic rupture, anemia, neuromu scular, this is not meant to be an all-inclusive list. EKG interpreted by me (3pts min.). @ -See above X-rays interpreted by me (1pt min.). @ -Chest x-ray shows no acute processes CT interpreted by me (1pt min.). @ -CT angiography of the chest shows cardiomegaly with pleural effusion suggesting congestive heart failure. This period be some groundglass airspace opacities within the left upper lobe. U/S interpreted by me (1pt. min.). @ -None done What testing was considered but not performed or refused? (CT, X-rays, U/S, l abs)? Why? @ -None What meds were considered but not given or refused? Why? @ -None Did you discuss the management of the patient with other professionals (professionals i.e. , GARRY, FORENSIC ECONOMIST, lab, RT, psych nurse, high school social studies teacher, automotive parts salesperson, teacher, forest fire management officer, major case detective)? Give summary @ -EKG was discussed with on-call cardiology. Admission was discussed with [facility] hospitalist group Was smoking cessation discussed for >3mins.? @ -No Was critical care preformed (if so, how long)? @ -yes, 33 minutes Were there social determinants of health that impacted care today? How? (Homelessness, low income, unemployed, alcoholism, drug addiction, transportation, low edu. Level, literacy, decrease access to med. care, [facility], rehab)? @ -No Was there de-escalation of care discussed even if they declined (Discuss DNR or withdrawal of care, Hospice)? DNR status @ -No What co-morbidities impacted this encounter? (DM, HTN, Smoking, COPD, CAD, Cancer, CVA, ARF, Chemo, Hep., AIDS, mental health diagnosis, sleep apnea, m orbid obesity)? @ -None Was patient admitted / discharged? Hospital course, mention meds given and route, prescriptions, significant lab abnormalities, going to OR and other pertinent info. @ -67 Year-old female presents to the emergency department for worsening dyspnea. She did have an exertional component making her clinical presentation suspicious for acute coronary syndrome. EKG shows no left bundle branch block without any obvious signs of ischemia. Cardiology reviewed the EKG and Rrts was not indicated for activation. Vital signs upon arrival are within acceptable limits. CBC is unremarkable. Metabolic panel shows elevated function. D-dimer is elevated 1.22. Metabolic panels within about acceptable limits. Prematurity peptide pending. Patient given Lasix. Patient reevaluated at 9:00 PM with improvement of symptoms. Click or presentation consistent with new-onset cardiomyopathy. Patient on heparin for concerns of acute coronary syndrome. Patient will be admitted. Undiagnosed new problem with uncertain prognosis? @ -No Drug Therapy requiring intensive monitoring for toxicity (Heparin, Nitro, Insulin, Cardizem)? @ -No Were any procedures done? @ -No Diagnosis/symptom? Acute, or Chronic, or Acute on Chronic? Uncomplicated (without systemic symptoms) or Complicated (systemic symptoms)? @ -New-onset heart failure Side effects of treatment? @ -No Exacerbation, Progression, or Severe Exacerbation? @ -No Poses a threat to life or bodily function? How? (Chest pain, [place], FL, pneumonia, PE, COPD, DKA, ARF, appy, cholecystitis, CVA, Diverticulitis, Homicidal, Suicidal, threat to staff... and all critical care pts) @ -yes - Lab Data Result diagrams: 09/05/22 17:32 09/05/22 17:32 Lab Results 09/05/22 09/05/22 09/05/22 Range/Units 17:32 17:32 17:32 WBC 6.5 (3.8-10.6) k/uL RBC 3.77 L (3.80-5.40) m/uL Hgb 12.7 (11.4-16.0) gm/dL Hct 37.0 (34.0-46.0) % MCV 98.0 (80.0-100.0) fL MCH 33.6 (25.0-35.0) pg MCHC 34.3 (31.0-37.0) g/dL RDW 12.3 (11.5-15.5) % Plt Count 164 (150-450) k/uL MPV 7.6 Neutrophils % 83 % Lymphocytes % 13 % Monocytes % 2 % Eosinophils % 2 % Basophils % 0 % Neutrophils # 5.4 (1.3-7.7) k/uL Lymphocytes # 0.8 L (1.0-4.8) k/uL Monocytes # 0.1 (0-1.0) k/uL Eosinophils # 0.1 (0-0.7) k/uL Basophils # 0.0 (0-0.2) k/uL PT (9.0-12.0) sec INR (<1.2) APTT (22.0-30.0) sec D-Dimer (<0.60) mg/L FEU Sodium 135 L (137-145) mmol/L Potassium 4.3 (3.5-5.1) mmol/L Chloride 97 L (98-107) mmol/L Carbon Dioxide 23 (22-30) mmol/L Anion Gap 15 mmol/L BUN 12 (7-17) mg/dL Creatinine 0.44 L (0.52-1.04) mg/dL Est GFR (CKD-EPI)AfAm >90 (>60 ml/min/1.73 sqM) Est GFR (CKD-EPI)NonAf >90 (>60 ml/min/1.73 sqM) Glucose 160 H (74-99) mg/dL Calcium 9.3 (8.4-10.2) mg/dL Magnesium 1.0 L (1.6-2.3) mg/dL Total Bilirubin 0.9 (0.2-1.3) mg/dL AST 31 (14-36) U/L ALT 16 (4-34) U/L Alkaline Phosphatase 59 (38-126) U/L Troponin I 0.018 (0.000-0.034) ng/mL Total Protein 7.2 (6.3-8.2) g/dL Albumin 4.6 (3.5-5.0) g/dL Lipase 17 L (23-300) U/L Influenza Type A (PCR) (Not Detectd) Influenza Type B (PCR) (Not Detectd) RSV (PCR) (Not Detectd) SARS-CoV-2 (PCR) (Not Detectd) 09/05/22 09/05/22 Range/Units 18:31 18:32 WBC (3.8-10.6) k/uL RBC (3.80-5.40) m/uL Hgb (11.4-16.0) gm/dL Hct (34.0-46.0) % MCV (80.0-100.0) fL MCH (25.0-35.0) pg MCHC (31.0-37.0) g/dL RDW (11.5-15.5) % Plt Count (150-450) k/uL MPV Neutrophils % % Lymphocytes % % Monocytes % % Eosinophils % % Basophils % % Neutrophils # (1.3-7.7) k/uL Lymphocytes # (1.0-4.8) k/uL Monocytes # (0-1.0) k/uL Eosinophils # (0-0.7) k/uL Basophils # (0-0.2) k/uL PT 12.2 H (9.0-12.0) sec INR 1.2 H (<1.2) APTT 141.5 H* (22.0-30.0) sec D-Dimer 1.22 H (<0.60) mg/L FEU Sodium (137-145) mmol/L Potassium (3.5-5.1) mmol/L Chloride (98-107) mmol/L Carbon Dioxide (22-30) mmol/L Anion Gap mmol/L BUN (7-17) mg/dL Creatinine (0.52-1.04) mg/dL Est GFR (CKD-EPI)AfAm (>60 ml/min/1.73 sqM) Est GFR (CKD-EPI)NonAf (>60 ml/min/1.73 sqM) Glucose (74-99) mg/dL Calcium (8.4-10.2) mg/dL Magnesium (1.6-2.3) mg/dL Total Bilirubin (0.2-1.3) mg/dL AST (14-36) U/L ALT (4-34) U/L Alkaline Phosphatase (38-126) U/L Troponin I (0.000-0.034) ng/mL Total Protein (6.3-8.2) g/dL Albumin (3.5-5.0) g/dL Lipase (23-300) U/L Influenza Type A (PCR) Not Detected (Not Detectd) Influenza Type B (PCR) Not Detected (Not Detectd) RSV (PCR) Not Detected (Not Detectd) SARS-CoV-2 (PCR) Not Detected (Not Detectd) Disposition Clinical Impression: Dyspnea Disposition: ADMITTED IP TO THIS HOSP Condition: Fair Referrals: Huyen Cheng DO [Primary Care Provider] - 1-2 days Decision Time: 21:00
[2022-09-05 19:19] LABS: INR 1.2 (<1.2); Prothrombin Time 12.2 sec (9.0-12.0)
[2022-09-05 19:37] LABS: Partial Thromboplastin Time 141.5 sec (22.0-30.0)
--- NOTE | 2022-09-05 21:07 | CT ---
EXAMINATION TYPE: CT angio chest CT DLP: 184.4 mGycm, Automated exposure control for dose reduction was used. DATE OF EXAM: 09/05/2022 8:36 PM COMPARISON: Chest radiograph from same day. CLINICAL INDICATION:Female, 67 years old with history of positive D-dimer; Shortness of breath and el evated d-dimer. TECHNIQUE/CONTRAST: CTA scan of the thorax is performed with IV Contrast, patient injected with 54ml mL of Isovue 370, pu lmonary embolism protocol. MIP images are created and reviewed these are created on a separate works tation.. FINDINGS: Pulmonary Artery: There is no evidence for a filling defect within the pulmonary vasculature to sugge st acute pulmonary embolism. The pulmonary artery is of normal size. Lungs/Pleura: Trace bilateral pleural effusions. Thickening of the intralobular septa. Few scattered groundglass airspace opacities in the left upper lung. Accessory lobe in the left lung similar to the right middle lobe. Mild centrilobular emphysema changes. No evidence of focal consolidation or pneum othorax. Airway: Large airways are patent. Heart: There is mildly enlarged for size. Vasculature: No evidence of aortic aneurysm. Mediastinum: No gross evidence of adenopathy. Musculoskeletal: No acute osseous abnormalities, remote injury to the left proximal shoulder with dys trophic calcifications. Soft Tissues: Unremarkable. Lower neck: No significant findings. Upper Abdomen: No significant findings. IMPRESSION: 1. No evidence of pulmonary embolism. 2. Cardiomegaly with trace bilateral pleural effusions and pulmonary vascular congestion correlate wi th serum BNP for congestive heart failure. 3. Ground glass airspace opacities within the left upper lobe correlate for infectious/inflammatory p rocess. 4. Mild emphysema.
[2022-09-05] MEDS ORDERED: FUROSEMIDE 10 MG/ML 4 ML VIAL IV STA (21:39)
[2022-09-05] MEDS: SODIUM CHLORIDE 0.9% 1,000 ML IV SCH (21:50)
[2022-09-05] MEDS: METHADONE 5 MG TAB PO SCH (22:23)
[2022-09-05] MEDS: oxyCODONE-APAP 10-325MG 1 EACH TAB PO PRN (22:26)
[2022-09-06] MEDS: oxyCODONE-APAP 10-325MG 1 EACH TAB PO PRN (07:32)
[2022-09-06 08:25] LABS: Glucose,Whole Blood 163 mg/dL (70-110)
[2022-09-06] MEDS ORDERED: Magnesium Replacement Protocol 1 EACH MISC MISCELLANE PRN (09:47)
[2022-09-06] MEDS: METHADONE 5 MG TAB PO SCH ×3 (09:48→22:16)
[2022-09-06 11:21] LABS: Glucose,Whole Blood 319 mg/dL (70-110)
[2022-09-06 12:20] VITALS: BMI 20.7
--- NOTE | 2022-09-06 12:25 | CA ---
Transthoracic Echo Report Name: Dorothy Lopez Age: 67 Gender: F : 1955 Exam Date: 09/06/2022 10:28 Exam Location: [facility] Ht (in): 61 Wt (lb): 110 Ordering Physician: Melissa Piper Attending/Referring Phys: [id number], Feliz Hardware Technician Kim Stevens RDCS Procedure CPT: Indications: LVF Cardiac Hx: Technical Quality: Excellent Contrast 1: Total Dose (mL): Contrast 2: Total Dose (mL): MEASUREMENTS (Male / Female) Normal Values 2D ECHO LV Diastolic Diameter PLAX 5.0 cm 4.2 - 5.9 / 3.9 - 5.3 cm LV Systolic Diameter PLAX 4.0 cm IVS Diastolic Thickness 0.9 cm 0.6 - 1.0 / 0.6 - 0.9 cm LVPW Diastolic Thickness 0.9 cm 0.6 - 1.0 / 0.6 - 0.9 cm LV Relative Wall Thickness 0.4 RV Internal Dim ED PLAX 2.6 cm LA Systolic Diameter LX 3.3 cm 3.0 - 4.0 / 2.7 - 3.8 cm LV Diastolic Volume MOD BP 94.9 cm??? 67 - 155 / 56 - 104 cm??? LV Systolic Volume MOD BP 62.0 cm??? - 58 / 19 - 49 cm??? LV Ejection Fraction MOD BP 34.7 % >= 55 % LV Cardiac Index MOD BP 2021.7 cm???/min???m??? LV Diastolic Volume MOD 4C 86.2 cm??? LV Systolic Volume MOD 4C 54.7 cm??? LV Ejection Fraction MOD 4C 36.5 % LV Cardiac Index MOD 4C 1931.1 cm???/min???m??? LV Diastolic Length 4C 6.5 cm LV Systolic Length 4C 6.8 cm LV Diastolic Volume MOD 2C 91.3 cm??? LV Systolic Volume MOD 2C 61.9 cm??? LV Ejection Fraction MOD 2C 32.2 % LV Cardiac Index MOD 2C 1801.2 cm???/min???m??? LV Diastolic Length 2C 7.7 cm LV Systolic Length 2C 7.7 cm LA Volume 58.3 cm??? 18 - 58 / 22 - 52 cm??? M-MODE Aortic Root Diameter MM 2.9 cm MV E Point Septal Separation 1.3 cm AV Cusp Separation MM 2.1 cm DOPPLER AV Peak Velocity 141.4 cm/s AV Peak Gradient 8.0 mmHg AI Peak Velocity 306.3 cm/s AI Peak Gradient 37.5 mmHg AI Pressure Half Time 587.6 ms MV Area PHT 2.7 cm??? Mitral E Point Velocity 66.2 cm/s Mitral A Point Velocity 93.9 cm/s Mitral E to A Ratio 0.7 MV Deceleration Time 277.4 ms MV E' Velocity 3.8 cm/s Mitral E to MV E' Ratio 17.4 TR Peak Velocity 290.3 cm/s TR Peak Gradient 33.7 mmHg Right Ventricular Systolic Press 38.7 mmHg FINDINGS Left Ventricle Left ventricular ejection fraction is estimated at 30-35 %. Moderately increased left ventricular systolic volume. Moderately decreased left ventricular ejection fraction. Right Ventricle Normal right ventricular size. Mild pulmonary hypertension. Right ventricular systolic pressure estimated at 39 mm hg. Right Atrium Normal right atrial size. Left Atrium Mildly increased left atrial volume. Mitral Valve Mitral valve thickened. Trace to mild mitral regurgitation. Aortic Valve Trileaflet aortic valve. Mild aortic regurgitation. Tricuspid Valve Structurally normal tricuspid valve. Mild tricuspid regurgitation. Pulmonic Valve Structurally normal pulmonic valve. No pulmonic regurgitation. Pericardium Small pericardial effusion. Aorta Normal size aortic root and proximal ascending aorta. CONCLUSIONS Reduced LV systolic function A small pericardial effusion, thickened pericardium Previewed by: Dr. Jon Murdock MD (Electronically Signed) Final Date: 06 September 2022 12:24
--- NOTE | 2022-09-06 12:31 | P.CRDCN ---
History of Present Illness Consult date: 09/06/22 History of present illness: History of present illness: This is a 67-year-old female patient with no previous cardiac history. She has a past medical history significant for diabetes mellitus type 2, hypertension, seizure disorder, hypothyroidism, methadone use. Patient complains of shortness of breath that started on Tuesday evening and lasted all day on Tuesday. She denies having any chest pain. She also had dizziness lightheadedness off and on throughout the day. She denies any change in her weight and no edema. She denies any previous cardiac history and no previous cardiac workup. Her initial blood pressure was 166/101. She received 1 dose of IV Lasix 40 mg in the emergency center and was started on a heparin drip. EKG sinus rhythm with Q waves in V1 and V2, left bundle branch block, Chest x-ray: No acute process CTA of the chest revealed no evidence of PE. Cardiomegaly with trace bilateral pleural effusions and pulmonary vascular congestion correlate with BMP. Groundglass airspace opacities with left upper lobe related for infectious or inflammatory process. Mild emphysema. WBC 6.5, hemoglobin 12.7, platelet count 164. D-dimer 1.22. Sodium 135, potassium 4.3, chloride 97, CO2 23, BUN 12 and creatinine 0.44. Glucose 160. Magnesium 1. Troponin negative 2. ProBNP 4890. Liver function tests are within normal limits. Influenza A, influenza B, RSV, Covid 19 not detected. Home cardiac medications:none Review Of Systems: At the time of my evaluation: Constitutional: No fever, no chills. No weakness, fatigue or lethargy. EENT: No headache. No dizziness. Lungs: Reports shortness of breath, cough, no sputum production. No wheezing. Cardiovascular: No chest pain, no lower extremity edema. No palpitations. No paroxysmal nocturnal dyspnea. No orthopnea. Reports intermittent lightheadedness or dizziness. No syncopal episodes. Abdominal: No abdominal pain. No nausea, vomiting. No diarrhea. No constipation. No bloody or tarry stools. Genitourinary: No dysuria.. No urinary retention. Musculoskeletal: No myalgias. No muscle weakness, no frequent falls. No back pain. No neck pain. Integumentary: No wounds. No rash. No unusual bruising. Neurologic: No aphasia. No facial droop. No change in mentation. No head injury. No headache. Physical examination: Gen: This is a thin 67-year-old female. She is resting in bed appears to be comfortable and in no acute distress. VS: reviewed HEENT: Head is atraumatic, normocephalic. Pupils equal, round. Sclerae is anicteric. NECK: Supple. No JVD. LUNGS: Diminished. No intercostal retractions. HEART: Regular rate and rhythm. Systolic murmur. ABDOMEN: Soft No tenderness. EXTREMITIES: No pedal edema. No calf tenderness. NEUROLOGICAL: Patient is awake, alert and oriented x3. Assessment: Mild acute heart failure Hypertension Hyperglycemia Plan: Patient will be continued on Lasix 40 mg IV daily, monitor I&O, daily weights, electrolytes and renal function Unknown reason why heparin drip was started. Continue for now until repeat tro ponins are obtained Obtain repeat troponins Obtain 2-D echocardiogram and Doppler study to assess cardiac structure and function Further recommendations to follow based upon clinical course Thank you kindly for this consultation. Nurse practitioner note has been reviewed, I agree with documented findings and plan of care. Patient was seen and examined. Past Medical History Past Medical History: Diabetes Mellitus, Hypertension, Osteoarthritis (OA) History of Any Multi-Drug Resistant Organisms: None Reported Past Surgical History: Orthopedic Surgery, Tonsillectomy, Tubal Ligation Additional Past Surgical History / Comment(s): cataracts Past Psychological History: Depression Smoking Status: Former smoker Past Alcohol Use History: None Reported Past Drug Use History: None Reported Medications and Allergies Home Medications Medication Instructions Recorded Confirmed Type Gabapentin 800 mg PO TID 10/27/16 09/05/22 History DULoxetine HCL [Cymbalta] 120 mg PO DAILY 08/02/18 09/05/22 History levETIRAcetam [Keppra] 1,000 mg PO BID 08/02/18 09/05/22 History metFORMIN HCL [Glucophage] 500 mg PO BID 08/02/18 09/05/22 History traZODone HCL 200 mg PO HS 08/02/18 09/05/22 History Levothyroxine Sodium [Synthroid] 50 mcg PO DAILY 09/05/22 09/05/22 History Methadone [Dolophine] 10 mg PO TID 09/05/22 09/05/22 History Montelukast [Singulair] 10 mg PO DAILY 09/05/22 09/05/22 History oxyCODONE-APAP 10-325MG [Percocet 1 tab PO TID 09/05/22 09/05/22 History 10-325 mg] Allergies Allergy/AdvReac Type Severity Reaction Status Date / Time cephalexin monohydrate Allergy Unknown Verified 09/05/22 18:45 [From Keflex] Cephalosporins Allergy Unknown Verified 09/05/22 18:45 clarithromycin [From Biaxin] Allergy Unknown Verified 09/05/22 18:45 NSAIDS (Non-Steroidal Allergy Unknown Verified 09/05/22 18:45 Anti-Inflamma Physical Exam Vitals: Vital Signs Temp Pulse Resp BP Pulse Ox 09/06/22 07:00 98.4 F 70 18 144/92 95 09/06/22 05:00 97.8 F 89 16 153/80 95 09/06/22 00:00 74 16 148/82 98 09/05/22 23:00 75 12 154/86 96 09/05/22 21:54 83 18 167/96 98 09/05/22 21:00 78 12 165/87 96 09/05/22 19:21 89 16 171/99 97 09/05/22 18:31 98.5 F 94 20 166/101 97 09/05/22 17:20 25 H 09/05/22 16:48 98.6 F 104 H 22 159/85 99 Intake and Output 09/05/22 09/06/22 09/06/22 22:59 06:59 14:59 Intake Total 57.475 Balance 57.475 Intake: Intake, IV Titration 57.475 Amount Heparin Sod,Pork in 0.45% 57.475 NaCl 25,000 unit In 0.45 % NaCl 1 250ml.bag @ 12 UNITS/KG/HR 5.987 mls/hr IV .Q24H [facility] Rx#: [id number] Other: Weight 49.895 kg Results 09/05/22 17:32 09/05/22 17:32 Cardiac Enzymes 09/05/22 09/05/22 Range/Units 17:32 17:32 AST 31 (14-36) U/L Troponin I 0.018 (0.000-0.034) ng/mL Coagulation 09/05/22 09/06/22 09/06/22 Range/Units 18:32 00:19 07:31 PT 12.2 H (9.0-12.0) sec APTT 141.5 H* 34.5 H 54.9 H (22.0-30.0) sec CBC 09/05/22 Range/Units 17:32 WBC 6.5 (3.8-10.6) k/uL RBC 3.77 L (3.80-5.40) m/uL Hgb 12.7 (11.4-16.0) gm/dL Hct 37.0 (34.0-46.0) % Plt Count 164 (150-450) k/uL Comprehensive Metabolic Panel 09/05/22 Range/Units 17:32 Sodium 135 L (137-145) mmol/L Potassium 4.3 (3.5-5.1) mmol/L Chloride 97 L (98-107) mmol/L Carbon Dioxide 23 (22-30) mmol/L BUN 12 (7-17) mg/dL Creatinine 0.44 L (0.52-1.04) mg/dL Glucose 160 H (74-99) mg/dL Calcium 9.3 (8.4-10.2) mg/dL AST 31 (14-36) U/L ALT 16 (4-34) U/L Alkaline Phosphatase 59 (38-126) U/L Total Protein 7.2 (6.3-8.2) g/dL Albumin 4.6 (3.5-5.0) g/dL Current Medications Generic Name Dose Route Start Last Admin Trade Name Freq PRN Reason Stop Dose Admin Heparin Sodium (Porcine) 0 unit 09/05/22 17:22 09/06/22 03:26 Heparin Sodium 1,000 Un/Ml (10ml Vl) IV 2,490 unit PER PROTOCOL PRN Administration Low PTT Protocol Heparin Sodium/Sodium Chloride 250 mls @ 5.987 mls/hr 09/05/22 17:30 09/06/22 03:28 25,000 unit/ Sodium Chloride IV 15 units/kg/hr .Q24H [facility] 7.484 mls/hr Titration Protocol 12 UNITS/KG/HR Sodium Chloride 1,000 mls @ 20 mls/hr 09/05/22 21:45 09/05/22 21:50 Saline 0.9% IV Not Given .Q24H [facility] Methadone HCl 10 mg 09/05/22 22:00 09/05/22 22:23 Methadone 5 Mg Tab PO 10 mg TID [facility] Administration Oxycodone/Acetaminophen 1 each 09/05/22 21:51 09/06/22 07:32 Oxycodone-Apap 10-325mg 1 Each Tab PO 1 each Q8HR PRN Administration Pain Intake and Output 09/05/22 09/06/22 09/06/22 22:59 06:59 14:59 Intake Total 57.475 Balance 57.475 Intake: Intake, IV Titration 57.475 Amount Heparin Sod,Pork in 0.45% 57.475 NaCl 25,000 unit In 0.45 % NaCl 1 250ml.bag @ 12 UNITS/KG/HR 5.987 mls/hr IV .Q24H [facility] Rx#: [id number] Other: Weight 49.895 kg 09/05/22 17:32 09/05/22 17:32
[2022-09-06] MEDS ORDERED: DEXTROSE 50% SYRINGE 50 ML IVP PRN ×2 (13:03)
[2022-09-06] MEDS: INSULIN ASPART (NovoLOG) 100 UNIT/ML VIAL SQ SCH ×3 (13:17→20:35)
[2022-09-06] MEDS: MAGNESIUM SULFATE-D5W PMX 1 GM in DEXTROSE/WATER 1 100ML.BAG IVPB SCH ×4 (13:18→17:36)
[2022-09-06] MEDS: FUROSEMIDE 10 MG/ML 4 ML VIAL IV SCH (13:33)
--- NOTE | 2022-09-06 14:12 | P.HPIM ---
History of Present Illness H&P Date: 09/06/22 History of present illness; patient is a 67-year-old lady with past medical history significant for hypothyroidism, diabetes mellitus, seizures or present to the ER because of shortness of breath. Patient stated that she was all right yesterday when she woke up in the middle night gasping for air. She denies any chest pain that time. There was no complain of any palpitation. Patient stated the shortness of breath was present on rest as well as exertion. Because of this shortness of breath, patient came to the ER Initial lab work in the ER showed WBC 6.5, hemoglobin 12.7, platelet count 164, sodium 135, potassium 4.3, BUN 12, creatinine 0.44, glucose 160, magnesium 1 Chest x-ray done showed no acute process CTA chest done negative for PE, cardiomegaly with trace bilateral pleural effusi on and pulmonary vascular congestion, groundglass airspace opacities in the left upper lobe, mild emphysema EKG done showed no T-wave inversion, left bundle-branch block seen, EKG was reviewed by cardiology, Spinning [employer]offer was not activated Patient admitted to medicine service REVIEW OF SYSTEMS: CONSTITUTIONAL: No fever, no malaise, no fatigue. HEENT: No recent visual problems or hearing problems. Denied any sore throat. CARDIOVASCULAR: As mentioned in HPI PULMONARY: As mentioned in HPI GASTROINTESTINAL: No diarrhea, no nausea, no vomiting, no abdominal pain. NEUROLOGICAL: No headaches, no weakness, no numbness. HEMATOLOGICAL: Denies any bleeding or petechiae. GENITOURINARY: Denies any burning micturition, frequency, or urgency. MUSCULOSKELETAL/RHEUMATOLOGICAL: Denies any joint pain, swelling, or any muscle pain. ENDOCRINE: Denies any polyuria or polydipsia. The rest of the 14-point review of systems is negative. PHYSICAL EXAMINATION: GENERAL: The patient is alert and oriented x3, not in any acute distress. Well developed, well nourished. HEENT: Pupils are round and equally reacting to light. EOMI. No scleral icterus. No conjunctival pallor. Normocephalic, atraumatic. No pharyngeal erythema. No thyromegaly. CARDIOVASCULAR: S1 and S2 present. No murmurs, rubs, or gallops. PULMONARY: Chest is clear to auscultation, no wheezing or crackles. ABDOMEN: Soft, nontender, nondistended, normoactive bowel sounds. No palpable organomegaly. MUSCULOSKELETAL: No joint swelling or deformity. EXTREMITIES: No cyanosis, clubbing, or pedal edema. NEUROLOGICAL: Gross neurological examination did not reveal any focal deficits. SKIN: No rashes. Assessment and plan Acute CHF Shortness of breath Hypomagnesemia Hypothyroidism [id number] diabetes mellitus Monitor vital signs Monitor CBC Monitor CMP Trend troponins Continue IV Lasix Ordered HbA1c Order sliding scale insulin, Ordered lipid panel Resume home meds 2-D echo ordered consult cardiology Past Medical History Past Medical History: Diabetes Mellitus, Hypertension, Osteoarthritis (OA) History of Any Multi-Drug Resistant Organisms: None Reported Past Surgical History: Orthopedic Surgery, Tonsillectomy, Tubal Ligation Additional Past Surgical History / Comment(s): cataracts Past Psychological History: Depression Smoking Status: Former smoker Past Alcohol Use History: None Reported Past Drug Use History: None Reported Medications and Allergies Home Medications Medication Instructions Recorded Confirmed Type RX: Gabapentin 800 mg PO TID 10/27/16 09/05/22 History DULoxetine HCL [Cymbalta] 120 mg PO DAILY 08/02/18 09/05/22 History RX: traZODone HCL 200 mg PO HS 08/02/18 09/05/22 History levETIRAcetam [Keppra] 1,000 mg PO BID 08/02/18 09/05/22 History metFORMIN HCL [Glucophage] 500 mg PO BID 08/02/18 09/05/22 History Levothyroxine Sodium [Synthroid] 50 mcg PO DAILY 09/05/22 09/05/22 History Methadone [Dolophine] 10 mg PO TID 09/05/22 09/05/22 History Montelukast [Singulair] 10 mg PO DAILY 09/05/22 09/05/22 History oxyCODONE-APAP 10-325MG [Percocet 1 tab PO TID 09/05/22 09/05/22 History 10-325 mg] Allergies Allergy/AdvReac Type Severity Reaction Status Date / Time cephalexin monohydrate Allergy Unknown Verified 09/05/22 18:45 [From Keflex] Cephalosporins Allergy Unknown Verified 09/05/22 18:45 clarithromycin [From Biaxin] Allergy Unknown Verified 09/05/22 18:45 NSAIDS (Non-Steroidal Allergy Unknown Verified 09/05/22 18:45 Anti-Inflamma Physical Exam Vitals: Vital Signs Temp Pulse Resp BP Pulse Ox 09/06/22 07:00 98.4 F 70 18 144/92 95 09/06/22 05:00 97.8 F 89 16 153/80 95 09/06/22 00:00 74 16 148/82 98 09/05/22 23:00 75 12 154/86 96 09/05/22 21:54 83 18 167/96 98 09/05/22 21:00 78 12 165/87 96 09/05/22 19:21 89 16 171/99 97 09/05/22 18:31 98.5 F 94 20 166/101 97 09/05/22 17:20 25 H 09/05/22 16:48 98.6 F 104 H 22 159/85 99 Intake and Output 09/05/22 09/06/22 09/06/22 22:59 06:59 14:59 Intake Total 57.475 Balance 57.475 Intake: Intake, IV Titration 57.475 Amount Heparin Sod,Pork in 0.45% 57.475 NaCl 25,000 unit In 0.45 % NaCl 1 250ml.bag @ 12 UNITS/KG/HR 5.987 mls/hr IV .Q24H [facility] Rx#: [id number] Other: Weight 49.895 kg Results CBC & Chem 7: 09/05/22 17:32 09/05/22 17:32 Labs: Abnormal Lab Results - Last 24 Hours (Table) 09/05/22 09/05/22 09/05/22 Range/Units 17:32 17:32 18:32 RBC 3.77 L (3.80-5.40) m/uL Lymphocytes # 0.8 L (1.0-4.8) k/uL PT 12.2 H (9.0-12.0) sec INR 1.2 H (<1.2) APTT 141.5 H* (22.0-30.0) sec D-Dimer 1.22 H (<0.60) mg/L FEU Sodium 135 L (137-145) mmol/L Chloride 97 L (98-107) mmol/L Creatinine 0.44 L (0.52-1.04) mg/dL Glucose 160 H (74-99) mg/dL POC Glucose (mg/dL) (70-110) mg/dL Magnesium 1.0 L (1.6-2.3) mg/dL Lipase 17 L (23-300) U/L 09/06/22 09/06/22 09/06/22 Range/Units 00:19 07:31 08:22 RBC (3.80-5.40) m/uL Lymphocytes # (1.0-4.8) k/uL PT (9.0-12.0) sec INR (<1.2) APTT 34.5 H 54.9 H (22.0-30.0) sec D-Dimer (<0.60) mg/L FEU Sodium (137-145) mmol/L Chloride (98-107) mmol/L Creatinine (0.52-1.04) mg/dL Glucose (74-99) mg/dL POC Glucose (mg/dL) 163 H (70-110) mg/dL Magnesium (1.6-2.3) mg/dL Lipase (23-300) U/L
[2022-09-06 16:20] LABS: Chol/HDL Ratio 3.06 Ratio; LDL Cholesterol,Calculated 128.9 mg/dL (0.0-131.0)
[2022-09-06 16:40] LABS: Glucose,Whole Blood 135 mg/dL (70-110)
[2022-09-06] MEDS: SODIUM CHLORIDE 0.9% 1,000 ML IV SCH (19:36)
[2022-09-06 20:03] LABS: Glucose,Whole Blood 231 mg/dL (70-110)
[2022-09-07 06:06] LABS: Glucose,Whole Blood 149 mg/dL (70-110)
[2022-09-07] MEDS: INSULIN ASPART (NovoLOG) 100 UNIT/ML VIAL SQ SCH ×4 (06:12→20:50)
[2022-09-07] MEDS: oxyCODONE-APAP 10-325MG 1 EACH TAB PO PRN ×3 (06:14→22:04)
[2022-09-07] MEDS: FUROSEMIDE 10 MG/ML 4 ML VIAL IV SCH (08:50)
[2022-09-07] MEDS: METHADONE 10 MG TAB PO SCH ×3 (08:51→20:50)
[2022-09-07 09:39] LABS: Basophils % (A) 0 %; Eosinophils # (A) 0.1 k/uL (0-0.7); Eosinophils % (A) 2 %; HCT 38.4 % (34.0-46.0); HGB 12.8 gm/dL (11.4-16.0); Lymphocytes # (A) 1.1 k/uL (1.0-4.8); Lymphocytes % (A) 21 %; MCH 33.6 pg (25.0-35.0); MCHC 33.4 g/dL (31.0-37.0); MCV 100.7 fL (80.0-100.0); Mean Platelet Volume 8.5; Monocytes # (A) 0.2 k/uL (0-1.0); Monocytes % (A) 4 %; Neutrophils # (A) 3.5 k/uL (1.3-7.7); Neutrophils % (A) 72 %; Platelet Count 212 k/uL (150-450); RBC 3.81 m/uL (3.80-5.40); RDW 12.2 % (11.5-15.5); WBC 4.9 k/uL (3.8-10.6)
[2022-09-07 10:10] LABS: ALT 18 U/L (4-34); AST 23 U/L (14-36); African American GFR (CKD) >90 (>60 ml/min/1.73 sqM); Alkaline Phosphatase 51 U/L (38-126); Anion Gap 10 mmol/L; Blood Urea Nitrogen 12 mg/dL (7-17); Calcium 9.2 mg/dL (8.4-10.2); Carbon Dioxide 28 mmol/L (22-30); Chloride 96 mmol/L (98-107); Glucose 355 mg/dL (74-99); Magnesium 1.3 mg/dL (1.6-2.3); Non-African American GFR(CKD) >90 (>60 ml/min/1.73 sqM); Potassium 4.1 mmol/L (3.5-5.1); Sodium 134 mmol/L (137-145); Total Bilirubin 0.3 mg/dL (0.2-1.3); Total Protein 6.2 g/dL (6.3-8.2)
[2022-09-07 11:30] LABS: Glucose,Whole Blood 245 mg/dL (70-110)
--- NOTE | 2022-09-07 12:45 | P.PN ---
Subjective Progress Note Date: 09/07/22 History of present illness: This is a 67-year-old female patient with no previous cardiac history. She has a past medical history significant for diabetes mellitus type 2, hypertension, seizure disorder, hypothyroidism, methadone use. Patient complains of shortness of breath that started on Tuesday evening and lasted all day on Tuesday. She denies having any chest pain. She also had dizziness lightheadedness off and on throughout the day. She denies any change in her weight and no edema. She den ies any previous cardiac history and no previous cardiac workup. Her initial blood pressure was 166/101. She received 1 dose of IV Lasix 40 mg in the emergency center and was started on a heparin drip. EKG sinus rhythm with Q waves in V1 and V2, left bundle branch block, Chest x-ray: No acute process CTA of the chest revealed no evidence of PE. Cardiomegaly with trace bilateral pleural effusions and pulmonary vascular congestion correlate with BMP. Groundglass airspace opacities with left upper lobe related for infectious or inflammatory process. Mild emphysema. WBC 6.5, hemoglobin 12.7, platelet count 164. D-dimer 1.22. Sodium 135, potassium 4.3, chloride 97, CO2 23, BUN 12 and creatinine 0.44. Glucose 160. Magnesium 1. Troponin negative 2. ProBNP 4890. Liver function tests are within normal limits. Influenza A, influenza B, RSV, Covid 19 not detected. Home cardiac medications:none 09/07 Patient is seen today in follow-up. She denies having any chest pain. She states she still short of breath. She is currently on IV Lasix 40 mg daily. Sodium 134, potassium 4.1, chloride 96, CO2 28, BUN 12 and creatinine 0.46. Echocardiogram reveals EF of 30-35%, small pericardial effusion. Thickened pericardium. Discussed results with the patient and need for cardiac cathete rization. We'll plan to make patient nothing by mouth for possible study tomorrow. Physical examination: Gen: This is a thin 67-year-old female. She is resting in bed appears to be comfortable and in no acute distress. VS: reviewed HEENT: Head is atraumatic, normocephalic. Pupils equal, round. Sclerae is anicteric. NECK: Supple. No JVD. LUNGS: Diminished. No intercostal retractions. HEART: Regular rate and rhythm. Systolic murmur. ABDOMEN: Soft No tenderness. EXTREMITIES: No pedal edema. No calf tenderness. NEUROLOGICAL: Patient is awake, alert and oriented x3. Assessment: Mild acute heart failure Hypertension Hyperglycemia Plan: Patient will be continued on Lasix 40 mg IV daily, monitor I&O, daily weights, electrolytes and renal function Nothing by mouth after midnight Possible cardiac catheterization tomorrow. Further recommendations to follow based upon clinical course Nurse practitioner note has been reviewed, I agree with documented findings and plan of care. Patient was seen and examined. Objective - Vital Signs Vital signs: Vital Signs Temp 98.2 F 09/07/22 08:00 Pulse 85 09/07/22 08:00 Resp 18 09/07/22 08:00 BP 115/52 09/07/22 08:00 Pulse Ox 97 09/07/22 08:00 FiO2 Intake & Output 09/06/22 09/07/22 09/07/22 18:59 06:59 18:59 Intake Total 286.326 358 Output Total 300 200 Balance -13.674 -200 358 Weight 49.895 kg Intake: Intake, IV Titration 181.326 Amount Heparin Sod,Pork in 0.45% 81.326 NaCl 25,000 unit In 0.45 % NaCl 1 250ml.bag @ 12 UNITS/KG/HR 5.987 mls/hr IV .Q24H [facility] Rx#: [id number] Magnesium Sulfate-D5w Pmx 100 1 gm In Dextrose/Water 1 100ml.bag @ 100 mls/hr IVPB Q1H [facility] Rx#: [id number] Oral 105 358 Output: Urine 300 200 Other: Voiding Method Toilet Toilet Diaper Diaper # Voids 1 - Labs CBC & Chem 7: 09/07/22 09:05 09/07/22 09:05 Labs: Abnormal Lab Results - Last 24 Hours (Table) 09/06/22 09/06/22 09/06/22 Range/Units 10:07 10:07 16:37 MCV (80.0-100.0) fL Sodium (137-145) mmol/L Chloride (98-107) mmol/L Creatinine (0.52-1.04) mg/dL Glucose (74-99) mg/dL POC Glucose (mg/dL) 135 H (70-110) mg/dL Hemoglobin A1c 6.5 H (<=6.0) % Magnesium (1.6-2.3) mg/dL Total Protein (6.3-8.2) g/dL Cholesterol 227.00 H (0.00-200.00) mg/dL HDL Cholesterol 74.10 H (40.00-60.00) mg/dL 09/06/22 09/07/22 09/07/22 Range/Units 20:00 06:00 09:05 MCV 100.7 H (80.0-100.0) fL Sodium (137-145) mmol/L Chloride (98-107) mmol/L Creatinine (0.52-1.04) mg/dL Glucose (74-99) mg/dL POC Glucose (mg/dL) 231 H 149 H (70-110) mg/dL Hemoglobin A1c (<=6.0) % Magnesium (1.6-2.3) mg/dL Total Protein (6.3-8.2) g/dL Cholesterol (0.00-200.00) mg/dL HDL Cholesterol (40.00-60.00) mg/dL 09/07/22 Range/Units 09:05 MCV (80.0-100.0) fL Sodium 134 L (137-145) mmol/L Chloride 96 L (98-107) mmol/L Creatinine 0.46 L (0.52-1.04) mg/dL Glucose 355 H (74-99) mg/dL POC Glucose (mg/dL) (70-110) mg/dL Hemoglobin A1c (<=6.0) % Magnesium 1.3 L (1.6-2.3) mg/dL Total Protein 6.2 L (6.3-8.2) g/dL Cholesterol (0.00-200.00) mg/dL HDL Cholesterol (40.00-60.00) mg/dL
--- NOTE | 2022-09-07 13:02 | P.PN ---
Subjective Progress Note Date: 09/07/22 patient is a 67-year-old lady with past medical history significant for hypothyroidism, diabetes mellitus, seizures or present to the ER because of shortness of breath. Patient stated that she was all right yesterday when she woke up in the middle night gasping for air. She denies any chest pain that sly e. There was no complain of any palpitation. Patient stated the shortness of breath was present on rest as well as exertion. Because of this shortness of breath, patient came to the ER Initial lab work in the ER showed WBC 6.5, hemoglobin 12.7, platelet count 164, sodium 135, potassium 4.3, BUN 12, creatinine 0.44, glucose 160, magnesium 1 Chest x-ray done showed no acute process CTA chest done negative for PE, cardiomegaly with trace bilateral pleural effusion and pulmonary vascular congestion, groundglass airspace opacities in the left upper lobe, mild emphysema EKG done showed no T-wave inversion, left bundle-branch block seen, EKG was reviewed by cardiology, [employer] Examiner was not activated Patient admitted to medicine service 09/07. Patient seen and examined. States shortness of breath is improved. Denies any chest pain at rest. Gets short of breath on exertion. REVIEW OF SYSTEMS: CONSTITUTIONAL: No fever, no malaise,. CARDIOVASCULAR: As mentioned above PULMONARY: As mentioned above GASTROINTESTINAL: No diarrhea, no nausea, no vomiting, no abdominal pain. NEUROLOGICAL: No headaches, no weakness, PHYSICAL EXAMINATION: GENERAL: The patient is alert and oriented x3, not in any acute distress. Well developed, well nourished. HEENT: Pupils are round and equally reacting to light. EOMI. No scleral icterus. No conjunctival pallor. Normocephalic, atraumatic. No pharyngeal erythema. No thyromegaly. CARDIOVASCULAR: S1 and S2 present. No murmurs, rubs, or gallops. PULMONARY: Chest is clear to auscultation, no wheezing or crackles. ABDOMEN: Soft, nontender, nondistended, normoactive bowel sounds. No palpable organomegaly. MUSCULOSKELETAL: No joint swelling or deformity. EXTREMITIES: No cyanosis, clubbing, or pedal edema. NEUROLOGICAL: Gross neurological examination did not reveal any focal deficits. SKIN: No rashes. Assessment and plan Acute systolic CHF Shortness of breath Hypomagnesemia Hypothyroidism Hyperlipidemia [id number] diabetes mellitus Monitor vital signs Monitor CBC Monitor CMP Trend troponins Continue IV Lasix HbA1c is 6.5 Continue sliding scale insulin, Continue Synthroid Start Lipitor 2-D echo showed LVEF of 30-35%, small pericardial effusion, thickened pericardium Follow-up on cardiology recommendations, plan to do cardiac cath tomorrow, nothing by mouth after midnight Objective - Vital Signs Vital signs: Vital Signs Temp 98.2 F 09/07/22 08:00 Pulse 85 09/07/22 08:00 Resp 18 09/07/22 08:00 BP 115/52 09/07/22 08:00 Pulse Ox 97 09/07/22 08:00 FiO2 Intake & Output 09/06/22 09/07/22 09/07/22 18:59 06:59 18:59 Intake Total 286.326 Output Total 300 200 Balance -13.674 -200 Weight 49.895 kg Intake: Intake, IV Titration 181.326 Amount Heparin Sod,Pork in 0.45% 81.326 NaCl 25,000 unit In 0.45 % NaCl 1 250ml.bag @ 12 UNITS/KG/HR 5.987 mls/hr IV .Q24H [facility] Rx#: [id number] Magnesium Sulfate-D5w Pmx 100 1 gm In Dextrose/Water 1 100ml.bag @ 100 mls/hr IVPB Q1H [facility] Rx#: [id number] Oral 105 Output: Urine 300 200 Other: Voiding Method Toilet Toilet Diaper Diaper # Voids 1 - Labs CBC & Chem 7: 09/07/22 09:05 09/07/22 09:05 Labs: Abnormal Lab Results - Last 24 Hours (Table) 09/06/22 09/06/22 09/06/22 Range/Units 10:07 10:07 11:18 MCV (80.0-100.0) fL POC Glucose (mg/dL) 319 H (70-110) mg/dL Hemoglobin A1c 6.5 H (<=6.0) % Cholesterol 227.00 H (0.00-200.00) mg/dL HDL Cholesterol 74.10 H (40.00-60.00) mg/dL 09/06/22 09/06/22 09/07/22 Range/Units 16:37 20:00 06:00 MCV (80.0-100.0) fL POC Glucose (mg/dL) 135 H 231 H 149 H (70-110) mg/dL Hemoglobin A1c (<=6.0) % Cholesterol (0.00-200.00) mg/dL HDL Cholesterol (40.00-60.00) mg/dL 09/07/22 Range/Units 09:05 MCV 100.7 H (80.0-100.0) fL POC Glucose (mg/dL) (70-110) mg/dL Hemoglobin A1c (<=6.0) % Cholesterol (0.00-200.00) mg/dL HDL Cholesterol (40.00-60.00) mg/dL
[2022-09-07] MEDS: levETIRAcetam 500 MG TAB PO SCH ×2 (13:22→20:50)
[2022-09-07] MEDS: DULoxetine HCL 60 MG CAPSULE.DR PO SCH (13:22)
[2022-09-07] MEDS: MONTELUKAST 10 MG TAB PO SCH (13:22)
[2022-09-07] MEDS: GABAPENTIN 400 MG CAP PO SCH ×2 (13:23→20:50)
[2022-09-07] MEDS ORDERED: oxyCODONE-APAP 10-325MG 1 EACH TAB PO SCH (16:00)
[2022-09-07] MEDS ORDERED: METHADONE 10 MG TAB PO SCH (16:00)
[2022-09-07 16:37] LABS: Glucose,Whole Blood 152 mg/dL (70-110)
[2022-09-07] MEDS: SODIUM CHLORIDE 0.9% 1,000 ML IV SCH (18:08)
[2022-09-07 20:24] LABS: Glucose,Whole Blood 269 mg/dL (70-110)
[2022-09-07] MEDS: ATORVASTATIN 40 MG TAB PO SCH (20:50)
[2022-09-07] MEDS ORDERED: traZODone HCL 100 MG TAB PO SCH (21:00)
[2022-09-08 00:01] LABS: Glucose,Whole Blood 165 mg/dL (70-110)
[2022-09-08] MEDS ORDERED: SODIUM CHLORIDE 0.9% 1,000 ML IV ONE (00:41)
[2022-09-08] MEDS ORDERED: NALOXONE 0.4 MG/ML 1 ML VIAL IVP STA (00:47)
[2022-09-08] MEDS ORDERED: NALOXONE 0.4 MG/ML 1 ML VIAL ONE (00:54)
[2022-09-08 00:59] LABS: Basophils % (A) 0 %; Eosinophils # (A) 0.1 k/uL (0-0.7); Eosinophils % (A) 1 %; HCT 33.9 % (34.0-46.0); HGB 11.3 gm/dL (11.4-16.0); Lymphocytes # (A) 1.2 k/uL (1.0-4.8); Lymphocytes % (A) 14 %; MCHC 33.2 g/dL (31.0-37.0); MCV 99.3 fL (80.0-100.0); Mean Platelet Volume 8.5; Monocytes # (A) 0.2 k/uL (0-1.0); Monocytes % (A) 3 %; Neutrophils % (A) 81 %; Platelet Count 214 k/uL (150-450); RBC 3.42 m/uL (3.80-5.40); RDW 12.8 % (11.5-15.5); WBC 8.6 k/uL (3.8-10.6)
[2022-09-08] MEDS ORDERED: NOREPINEPHRINE 4 MG in SODIUM CHLORIDE 0.9% 250 ML IV SCH ×2 (01:00→03:30)
[2022-09-08 01:08] LABS: African American GFR (CKD) 67 (>60 ml/min/1.73 sqM); Anion Gap 6 mmol/L; Blood Urea Nitrogen 22 mg/dL (7-17); Calcium 8.8 mg/dL (8.4-10.2); Carbon Dioxide 27 mmol/L (22-30); Chloride 101 mmol/L (98-107); Glucose 170 mg/dL (74-99); Non-African American GFR(CKD) 58 (>60 ml/min/1.73 sqM); Potassium 3.8 mmol/L (3.5-5.1); Sodium 134 mmol/L (137-145)
[2022-09-08 02:47] LABS: Glucose,Whole Blood 156 mg/dL (70-110)
--- NOTE | 2022-09-08 03:30 | P.CNPUL ---
History of Present Illness Consult date: 09/08/22 Requesting physician: Jesús Ruiz Reason for consult: other (ICU management) Chief complaint: Shortness of breath History of present illness: I am seeing this patient in new consultation today 09/08/2022 after a rapid response was called overhead for hypotension. The patient is a 67-year-old female with past medical history significant for diabetes mellitus type 2, hypothyroidism, hypertension, osteoarthritis, chronic lower back pain, and recent ex-smoker as of March,. Patient originally presented to the emergency room on September 05 with a chief complaint of acute shortness of breath that started over the weekend. She does state that her shortness breath is worse on exertion, often accompanied by chest pain and diaphoresis which subside with rest. Denies any heart palpitations, syncope, lower extremity swelling, orthopnea, PND. Denies any history of pulmonary diseases including asthma or COPD. She denies any fevers, chills, cough, wheezing, hemoptysis. Chest x-ray on arrival showed no acute cardiopulmonary process. Negative for influenza, RSV, COVID-19. Follow-up chest CTA was negative for pulmonary embolism. It did show cardiomegaly with trace bilateral pleural effusions and mild pulmonary vascular congestion. Patient was started on Lasix 40 mg daily. A transthoracic echocardiogram showed a reduced ejection fraction of 30-35%. Earlier this morning, the patient was on the cardiac stepdown unit, and was found to have symptomatic hypotension. Apparently, the patient was minimally responsive, with a blood pressure of 50/30 mmHg. She was given a one-time dose of Narcan. The patient did receive a p.m. dose of methadone, Percocet, and trazodone late last night. A rapid response was initiated. The patient was placed on a 15 L nonrebreather, however, she is oxygenating at 100%. She is currently sitting up in bed, in no acute distress, and was easily transitioned to room air. She is alert and oriented. I did give the patient a total of 1.5 L normal saline bolus, which initially improved the patient's blood pressure. Approximately 1 L hour later she did become hypotensive again. I was leery to give additional fluid boluses due to the patient's reduced ejection fraction and possible heart failure exacerbation. The patient was transferred to the intensive care unit for norepinephrine infusion. Possible tentative heart catheterization planned for today per cardiology note. Review of Systems REVIEW OF SYSTEMS: CONSTITUTIONAL: Denies any recent significant weight loss or weight gain. EYES: Denies change in vision. EARS, NOSE, MOUTH, THROAT: Denies headaches, denies sore throat. CARDIOVASCULAR: See HPI RESPIRATORY: See HPI GASTROINTESTINAL: Denies change in appetite, abdominal pain, nausea and vomiting, or diarrhea GENITOURINARY: Denies hematuria, denies infections. MUSKULOSKELETAL: Denies pain, denies swelling. INTEGUMENTARY: Denies rash, denies eczema. NEUROLOGICAL: Denies recent memory loss, no recent seizure activity. PSYCHIATRIC: Denies anxiety, denies depression. HEMATOLOGIC/LYMPHATIC: Denies anemia, denies enlarged lymph node Past Medical History Past Medical History: Diabetes Mellitus, Hypertension, Osteoarthritis (OA) Additional Past Medical History / Comment(s): chronic pain History of Any Multi-Drug Resistant Organisms: None Reported Past Surgical History: Orthopedic Surgery, Tonsillectomy, Tubal Ligation Additional Past Surgical History / Comment(s): cataracts Past Anesthesia/Blood Transfusion Reactions: No Reported Reaction Past Psychological History: Depression Smoking Status: Former smoker Past Alcohol Use History: None Reported Past Drug Use History: None Reported Medications and Allergies Home Medications Medication Instructions Recorded Confirmed Type Gabapentin 800 mg PO TID 10/27/16 09/05/22 History DULoxetine HCL [Cymbalta] 120 mg PO DAILY 08/02/18 09/05/22 History levETIRAcetam [Keppra] 1,000 mg PO BID 08/02/18 09/05/22 History metFORMIN HCL [Glucophage] 500 mg PO BID 08/02/18 09/05/22 History traZODone HCL 200 mg PO HS 08/02/18 09/05/22 History Levothyroxine Sodium [Synthroid] 50 mcg PO DAILY 09/05/22 09/05/22 History Methadone [Dolophine] 10 mg PO TID 09/05/22 09/05/22 History Montelukast [Singulair] 10 mg PO DAILY 09/05/22 09/05/22 History oxyCODONE-APAP 10-325MG [Percocet 1 tab PO TID 09/05/22 09/05/22 History 10-325 mg] Allergies Allergy/AdvReac Type Severity Reaction Status Date / Time cephalexin monohydrate Allergy Unknown Verified 09/05/22 18:45 [From Keflex] Cephalosporins Allergy Unknown Verified 09/05/22 18:45 clarithromycin [From Biaxin] Allergy Unknown Verified 09/05/22 18:45 NSAIDS (Non-Steroidal Allergy Unknown Verified 09/05/22 18:45 Anti-Inflamma Physical Exam Vitals: Vital Signs Temp Pulse Pulse Resp BP Pulse Ox 09/08/22 02:30 96 87/56 09/08/22 02:00 15 09/08/22 01:40 106/64 09/08/22 01:05 140/80 09/08/22 01:00 74 116/74 09/08/22 00:57 15 09/08/22 00:50 69 95/58 09/08/22 00:45 68 92/55 09/08/22 00:40 66 78/41 09/08/22 00:35 65 73/44 09/08/22 00:30 63 81/36 09/08/22 00:25 64 81/38 09/08/22 00:20 63 14 78/42 09/08/22 00:15 65 14 67/37 09/08/22 00:10 97.6 F 61 14 57/32 95 09/07/22 20:00 98.6 F 80 15 128/82 97 09/07/22 16:00 99 F 85 18 136/83 96 09/07/22 12:40 98.1 F 78 18 106/70 97 09/07/22 08:00 98.2 F 85 18 115/52 97 09/07/22 04:00 98.1 F 70 16 129/84 95 Intake and Output 09/07/22 09/07/22 09/08/22 14:59 22:59 06:59 Intake Total 476 118 Balance 476 118 Intake: Oral 476 118 Other: # Voids 3 3 2 # Bowel Movements 1 GENERAL EXAM: Alert, 67 year-old white female appearing stated age , comfortable in no apparent distress. HEAD: Normocephalic and atraumatic EYES: Normal reaction of pupils, equal size. NOSE: Clear with pink turbinates. THROAT: No erythema or exudates. NECK: No masses, no JVD. CHEST: No chest wall deformity. LUNGS: Equal air entry with mild bibasilar inspiratory crackles. No wheezes, rhonchi, focal dullness. On room air. No conversational dyspnea or accessory muscle use.. CVS: S1 and S2 normal with no audible murmur, regular rhythm. No extra heart sounds ABDOMEN: No hepatosplenomegaly, active bowel sounds, no guarding or rigidity. SPINE: No scoliosis or deformity SKIN: No rashes CENTRAL NERVOUS SYSTEM: No focal deficits, tone is normal in all 4 extremities. EXTREMITIES: There is no peripheral edema, clubbing, or cyanosis. Peripheral pulses 1+ throughout. Results - Laboratory Findings CBC and BMP: 09/08/22 00:35 09/08/22 00:35 PT/INR, D-dimer PT 12.2 sec (9.0-12.0) H 09/05/22 18:32 INR 1.2 (<1.2) H 09/05/22 18:32 D-Dimer 1.22 mg/L FEU (<0.60) H 09/05/22 18:32 Abnormal lab findings: Abnormal Labs 09/05/22 09/05/22 09/05/22 17:32 17:32 18:32 RBC 3.77 L Hgb Hct MCV Lymphocytes # 0.8 L PT 12.2 H INR 1.2 H APTT 141.5 H* D-Dimer 1.22 H Sodium 135 L Chloride 97 L BUN Creatinine 0.44 L Glucose 160 H POC Glucose (mg/dL) Hemoglobin A1c Magnesium 1.0 L Total Protein Cholesterol HDL Cholesterol Lipase 17 L 09/06/22 09/06/22 09/06/22 00:19 07:31 08:22 RBC Hgb Hct MCV Lymphocytes # PT INR APTT 34.5 H 54.9 H D-Dimer Sodium Chloride BUN Creatinine Glucose POC Glucose (mg/dL) 163 H Hemoglobin A1c Magnesium Total Protein Cholesterol HDL Cholesterol Lipase 09/06/22 09/06/22 09/06/22 10:07 10:07 11:18 RBC Hgb Hct MCV Lymphocytes # PT INR APTT D-Dimer Sodium Chloride BUN Creatinine Glucose POC Glucose (mg/dL) 319 H Hemoglobin A1c 6.5 H Magnesium Total Protein Cholesterol 227.00 H HDL Cholesterol 74.10 H Lipase 09/06/22 09/06/22 09/07/22 16:37 20:00 06:00 RBC Hgb Hct MCV Lymphocytes # PT INR APTT D-Dimer Sodium Chloride BUN Creatinine Glucose POC Glucose (mg/dL) 135 H 231 H 149 H Hemoglobin A1c Magnesium Total Protein Cholesterol HDL Cholesterol Lipase 09/07/22 09/07/22 09/07/22 09:05 09:05 11:26 RBC Hgb Hct MCV 100.7 H Lymphocytes # PT INR APTT D-Dimer Sodium 134 L Chloride 96 L BUN Creatinine 0.46 L Glucose 355 H POC Glucose (mg/dL) 245 H Hemoglobin A1c Magnesium 1.3 L Total Protein 6.2 L Cholesterol HDL Cholesterol Lipase 09/07/22 09/07/22 09/08/22 16:35 20:21 00:00 RBC Hgb Hct MCV Lymphocytes # PT INR APTT D-Dimer Sodium Chloride BUN Creatinine Glucose POC Glucose (mg/dL) 152 H 269 H 165 H Hemoglobin A1c Magnesium Total Protein Cholesterol HDL Cholesterol Lipase 09/08/22 09/08/22 00:35 00:35 RBC 3.42 L Hgb 11.3 L Hct 33.9 L MCV Lymphocytes # PT INR APTT D-Dimer Sodium 134 L Chloride BUN 22 H Creatinine Glucose 170 H POC Glucose (mg/dL) Hemoglobin A1c Magnesium Total Protein Cholesterol HDL Cholesterol Lipase - Diagnostic Findings Chest x-ray: image reviewed CT scan - chest: image reviewed Assessment and Plan Assessment: Severe symptomatic hypotension, refractory to fluid resuscitation with a total of 1.5 L normal saline bolus. Patient ultimately required transfer to the intensive care unit for vasopressor support in the form of norepinephrine. Exacerbation of systolic congestive heart failure, chest CTA on arrival showed cardiomegaly with small bilateral pleural effusions and pulmonary vascular congestion. NT proBNP was elevated at 4890. Echocardiogram done this admission shows a reduced ejection fraction of 30-35%. Acute hypoxemic respiratory failure, secondary to above, was initially on 15 L nonrebreather, currently on room air. Diabetes mellitus type 2, [id number] Hypothyroidism Dyslipidemia Chronic lower back pain, managed on outpatient basis with methadone and when necessary Percocets History of seizure disorder Ex-smoker as of March,. Reported approximately 17-80-hnpc-year history Plan: Patient's medications, labs, chest x-ray, chest CTA reviewed Patient was given a total of 1.5 L normal saline bolus. I am leery to give additional fluid boluses due to the patient's exacerbation of congestive heart failure. Patient will be transitioned to the intensive care unit for vasopressor support Possible tentative heart catheterization planned for today per cardiology note Pecocet dose reduced to 5-325 mg TID, due to need for Narcan, given prior to my arrival to rapid response. On my evaluation, she alert and able to hold a conversation. This may have been due to the patient's severe hypotension. Blood glucose control per admitting Protonix for GI Prophylaxis Heparin for DVT prophylaxis Patient was transferred to the intensive care unit. I have personally seen and examined the patient, performed the documentation and the assessment and plan as written. Number of minutes spent on the visit:20 Time with Patient: Greater than 30
[2022-09-08 06:45] LABS: Glucose,Whole Blood 174 mg/dL (70-110)
[2022-09-08] MEDS: INSULIN ASPART (NovoLOG) 100 UNIT/ML VIAL SQ SCH ×4 (07:28→20:46)
--- NOTE | 2022-09-08 07:28 | P.PN ---
Subjective Progress Note Date: 09/08/22 Principal diagnosis: Cardiomyopathy This is a 67-year-old female patient was no significant cardiac history was admitted to the hospital initially with symptoms of heart failure and she was started on Lasix. Subsequently she developed hypotension and she was transferred to the intensive care unit. She was seen this morning. She remains hypotensive but she is on a very small dose of norepinephrine and we are in process of weaning her from norepinephrine. No pain in the chest and no shortness of breath at this point. As a matter of fact she seems to be euvolemic. The EKG showed sinus mechanism was LBBB which could be responsible for her cardiomyopathy. The echo showed an EF around 35% The examination is remarkable for marginally low blood pressure with clear sadie thing sounds bilaterally and regular rate and rhythm and no lower extremity edema noted. Assessment Cardiomyopathy of unknown etiology Hypotension requiring norepinephrine LBBB Plan The right wean the patient from norepinephrine Consider doing coronary angiogram to rule out severe CAD Follow-up with the patient Objective - Vital Signs Vital signs: Vital Signs Temp 96.7 F L 09/08/22 04:00 Pulse 85 09/08/22 07:00 Resp 27 H 09/08/22 07:00 BP 109/60 09/08/22 07:00 Pulse Ox 97 09/08/22 07:00 FiO2 Intake & Output 09/07/22 09/08/22 09/08/22 18:59 06:59 18:59 Intake Total 594 70.551 20 Balance 594 70.551 20 Intake: Intake, IV Titration 70.551 20 Amount Norepinephrine 4 mg In 10.551 Sodium Chloride 0.9% 250 ml @ 0.03 MCG/KG/MIN 5. 703 mls/hr IV .Q24H NATHAN Rx#:[id number] Sodium Chloride 0.9% 1, 60 20 000 ml @ 20 mls/hr IV . Q24H NATHAN Rx#:[id number] Oral 594 Other: # Voids 3 2 # Bowel Movements 1 - Labs CBC & Chem 7: 09/08/22 00:35 09/08/22 00:35 Labs: Abnormal Lab Results - Last 24 Hours (Table) 09/07/22 09/07/22 09/07/22 Range/Units 09:05 09:05 11:26 RBC (3.80-5.40) m/uL Hgb (11.4-16.0) gm/dL Hct (34.0-46.0) % MCV 100.7 H (80.0-100.0) fL Sodium 134 L (137-145) mmol/L Chloride 96 L (98-107) mmol/L BUN (7-17) mg/dL Creatinine 0.46 L (0.52-1.04) mg/dL Glucose 355 H (74-99) mg/dL POC Glucose (mg/dL) 245 H (70-110) mg/dL Magnesium 1.3 L (1.6-2.3) mg/dL Total Protein 6.2 L (6.3-8.2) g/dL 09/07/22 09/07/22 09/08/22 Range/Units 16:35 20:21 00:00 RBC (3.80-5.40) m/uL Hgb (11.4-16.0) gm/dL Hct (34.0-46.0) % MCV (80.0-100.0) fL Sodium (137-145) mmol/L Chloride (98-107) mmol/L BUN (7-17) mg/dL Creatinine (0.52-1.04) mg/dL Glucose (74-99) mg/dL POC Glucose (mg/dL) 152 H 269 H 165 H (70-110) mg/dL Magnesium (1.6-2.3) mg/dL Total Protein (6.3-8.2) g/dL 09/08/22 09/08/22 09/08/22 Range/Units 00:35 00:35 02:46 RBC 3.42 L (3.80-5.40) m/uL Hgb 11.3 L (11.4-16.0) gm/dL Hct 33.9 L (34.0-46.0) % MCV (80.0-100.0) fL Sodium 134 L (137-145) mmol/L Chloride (98-107) mmol/L BUN 22 H (7-17) mg/dL Creatinine (0.52-1.04) mg/dL Glucose 170 H (74-99) mg/dL POC Glucose (mg/dL) 156 H (70-110) mg/dL Magnesium (1.6-2.3) mg/dL Total Protein (6.3-8.2) g/dL 09/08/22 Range/Units 06:44 RBC (3.80-5.40) m/uL Hgb (11.4-16.0) gm/dL Hct (34.0-46.0) % MCV (80.0-100.0) fL Sodium (137-145) mmol/L Chloride (98-107) mmol/L BUN (7-17) mg/dL Creatinine (0.52-1.04) mg/dL Glucose (74-99) mg/dL POC Glucose (mg/dL) 174 H (70-110) mg/dL Magnesium (1.6-2.3) mg/dL Total Protein (6.3-8.2) g/dL
--- NOTE | 2022-09-08 08:11 | XR ---
EXAMINATION TYPE: XR chest 1V DATE OF EXAM: 09/08/2022 COMPARISON: 09/05/2022 HISTORY: Chest pain TECHNIQUE: Single frontal view of the chest is obtained. FINDINGS: There is no focal air space opacity, pleural effusion, or pneumothorax seen. The cardiac silhouette size is within normal limits. The osseous structures are intact. Bilateral shoulder arth ropathy. Suspect underlying chronic interstitial pulmonary fibrosis and COPD. IMPRESSION: No acute process.
[2022-09-08] MEDS: PANTOPRAZOLE 40 MG/10 ML VIAL IV SCH (08:22)
[2022-09-08] MEDS: HEPARIN SODIUM,PORCINE/PF 5,000 UNIT/0.5 ML SYRINGE SQ SCH ×2 (08:22→20:45)
[2022-09-08] MEDS ORDERED: oxyCODONE-APAP 5-325MG 1 EACH TAB PO SCH (09:00)
[2022-09-08] MEDS: MONTELUKAST 10 MG TAB PO SCH (09:14)
[2022-09-08] MEDS: DULoxetine HCL 60 MG CAPSULE.DR PO SCH (09:14)
[2022-09-08] MEDS: GABAPENTIN 400 MG CAP PO SCH ×4 (09:14→23:40)
[2022-09-08] MEDS: levETIRAcetam 500 MG TAB PO SCH ×2 (09:14→20:46)
[2022-09-08] MEDS: LEVOTHYROXINE 50 MCG TAB PO SCH (11:24)
[2022-09-08] MEDS: LIDOCAINE 5% PATCH TOPICAL SCH (11:25)
[2022-09-08 12:33] LABS: Glucose,Whole Blood 147 mg/dL (70-110)
--- NOTE | 2022-09-08 14:06 | P.PN ---
Subjective Progress Note Date: 09/08/22 patient is a 67-year-old lady with past medical history significant for hypothyroidism, diabetes mellitus, seizures or present to the ER because of shortness of breath. Patient stated that she was all right yesterday when she woke up in the middle night gasping for air. She denies any chest pain that sly e. There was no complain of any palpitation. Patient stated the shortness of breath was present on rest as well as exertion. Because of this shortness of breath, patient came to the ER Initial lab work in the ER showed WBC 6.5, hemoglobin 12.7, platelet count 164, sodium 135, potassium 4.3, BUN 12, creatinine 0.44, glucose 160, magnesium 1 Chest x-ray done showed no acute process CTA chest done negative for PE, cardiomegaly with trace bilateral pleural effusion and pulmonary vascular congestion, groundglass airspace opacities in the left upper lobe, mild emphysema EKG done showed no T-wave inversion, left bundle-branch block seen, EKG was reviewed by cardiology, [employer] Lead was not activated Patient admitted to medicine service 09/07. Patient seen and examined. States shortness of breath is improved. Denies any chest pain at rest. Gets short of breath on exertion. 09/08. Patient seen and examined. Patient was transferred overnight to ICU for low blood pressure and being minimally responsive, patient responded initially to fluid boluses and received total of 1.5 L later on started getting hypotensive again. Was placed on Levophed. Currently blood pressure is improved REVIEW OF SYSTEMS: CONSTITUTIONAL: No fever, no malaise,. CARDIOVASCULAR: As mentioned above PULMONARY: As mentioned above GASTROINTESTINAL: No diarrhea, no nausea, no vomiting, no abdominal pain. NEUROLOGICAL: No headaches, no weakness, PHYSICAL EXAMINATION: GENERAL: The patient is alert and oriented x3, not in any acute distress. Well developed, well nourished. HEENT: Pupils are round and equally reacting to light. EOMI. No scleral icterus. No conjunctival pallor. Normocephalic, atraumatic. No pharyngeal erythema. No thyromegaly. CARDIOVASCULAR: S1 and S2 present. No murmurs, rubs, or gallops. PULMONARY: Chest is clear to auscultation, no wheezing or crackles. ABDOMEN: Soft, nontender, nondistended, normoactive bowel sounds. No palpable organomegaly. MUSCULOSKELETAL: No joint swelling or deformity. EXTREMITIES: No cyanosis, clubbing, or pedal edema. NEUROLOGICAL: Gross neurological examination did not reveal any focal deficits. SKIN: No rashes. Assessment and plan Acute systolic CHF Hypotension Cardiogenic shock Acute hypoxic respiratory failure Hypomagnesemia Hypothyroidism Hyperlipidemia Lat-rwrghcn-gszowewpm diabetes mellitus Monitor vital signs Monitor CBC Monitor CMP Monitor vital signs Continue Levophed, continue to wean it down. Continue IV Lasix HbA1c is 6.5 Continue sliding scale insulin, Continue Synthroid Continue Lipitor 2-D echo showed LVEF of 30-35%, small pericardial effusion, thickened pericardium Follow-up on cardiology recommendations, plan to do cardiac cath, nothing by mouth for now Critical care consulted for hypotension Objective - Vital Signs Vital signs: Vital Signs Temp 97.7 F 09/08/22 08:00 Pulse 80 09/08/22 08:15 Resp 18 09/08/22 08:15 BP 106/64 09/08/22 08:15 Pulse Ox 93 L 09/08/22 08:15 FiO2 Intake & Output 09/07/22 09/08/22 09/08/22 18:59 06:59 18:59 Intake Total 594 70.551 48.174 Output Total 0 Balance 594 70.551 48.174 Intake: IV 20 Sodium Chloride 0.9% 1, 20 000 ml @ 20 mls/hr IV . Q24H NATHAN Rx#:[id number] Intake, IV Titration 70.551 28.174 Amount Norepinephrine 4 mg In 10.551 8.174 Sodium Chloride 0.9% 250 ml @ 0.03 MCG/KG/MIN 5. 703 mls/hr IV .Q24H NATHAN Rx#:[id number] Sodium Chloride 0.9% 1, 60 20 000 ml @ 20 mls/hr IV . Q24H NATHAN Rx#:[id number] Oral 594 Output: Urine 0 Other: # Voids 3 2 # Bowel Movements 1 - Labs CBC & Chem 7: 09/08/22 00:35 09/08/22 00:35 Labs: Abnormal Lab Results - Last 24 Hours (Table) 09/07/22 09/07/22 09/07/22 Range/Units 09:05 09:05 11:26 RBC (3.80-5.40) m/uL Hgb (11.4-16.0) gm/dL Hct (34.0-46.0) % MCV 100.7 H (80.0-100.0) fL Sodium 134 L (137-145) mmol/L Chloride 96 L (98-107) mmol/L BUN (7-17) mg/dL Creatinine 0.46 L (0.52-1.04) mg/dL Glucose 355 H (74-99) mg/dL POC Glucose (mg/dL) 245 H (70-110) mg/dL Magnesium 1.3 L (1.6-2.3) mg/dL Total Protein 6.2 L (6.3-8.2) g/dL 09/07/22 09/07/22 09/08/22 Range/Units 16:35 20:21 00:00 RBC (3.80-5.40) m/uL Hgb (11.4-16.0) gm/dL Hct (34.0-46.0) % MCV (80.0-100.0) fL Sodium (137-145) mmol/L Chloride (98-107) mmol/L BUN (7-17) mg/dL Creatinine (0.52-1.04) mg/dL Glucose (74-99) mg/dL POC Glucose (mg/dL) 152 H 269 H 165 H (70-110) mg/dL Magnesium (1.6-2.3) mg/dL Total Protein (6.3-8.2) g/dL 09/08/22 09/08/22 09/08/22 Range/Units 00:35 00:35 02:46 RBC 3.42 L (3.80-5.40) m/uL Hgb 11.3 L (11.4-16.0) gm/dL Hct 33.9 L (34.0-46.0) % MCV (80.0-100.0) fL Sodium 134 L (137-145) mmol/L Chloride (98-107) mmol/L BUN 22 H (7-17) mg/dL Creatinine (0.52-1.04) mg/dL Glucose 170 H (74-99) mg/dL POC Glucose (mg/dL) 156 H (70-110) mg/dL Magnesium (1.6-2.3) mg/dL Total Protein (6.3-8.2) g/dL 09/08/22 Range/Units 06:44 RBC (3.80-5.40) m/uL Hgb (11.4-16.0) gm/dL Hct (34.0-46.0) % MCV (80.0-100.0) fL Sodium (137-145) mmol/L Chloride (98-107) mmol/L BUN (7-17) mg/dL Creatinine (0.52-1.04) mg/dL Glucose (74-99) mg/dL POC Glucose (mg/dL) 174 H (70-110) mg/dL Magnesium (1.6-2.3) mg/dL Total Protein (6.3-8.2) g/dL
[2022-09-08 16:50] LABS: Glucose,Whole Blood 156 mg/dL (70-110)
[2022-09-08] MEDS: KETOROLAC 15 MG/ML 1 ML VIAL IVP PRN (16:50)
[2022-09-08 20:39] LABS: Glucose,Whole Blood 165 mg/dL (70-110)
[2022-09-08] MEDS: ATORVASTATIN 40 MG TAB PO SCH (20:46)
[2022-09-08 21:50] LABS: Glucose,Whole Blood 60 mg/dL (70-110)
[2022-09-08] MEDS: SODIUM CHLORIDE 0.9% 1,000 ML IV SCH (23:38)
[2022-09-08 23:48] LABS: Glucose,Whole Blood 143 mg/dL (70-110)
[2022-09-09] MEDS: KETOROLAC 15 MG/ML 1 ML VIAL IVP PRN ×4 (00:02→20:59)
[2022-09-09] MEDS ORDERED: oxyCODONE-APAP 10-325MG 1 EACH TAB PO STA (01:44)
[2022-09-09 05:26] LABS: Basophils % (A) 0 %; Eosinophils # (A) 0.1 k/uL (0-0.7); Eosinophils % (A) 2 %; HGB 10.7 gm/dL (11.4-16.0); Lymphocytes # (A) 1.9 k/uL (1.0-4.8); Lymphocytes % (A) 43 %; MCH 32.7 pg (25.0-35.0); MCHC 33.6 g/dL (31.0-37.0); MCV 97.6 fL (80.0-100.0); Mean Platelet Volume 8.6; Monocytes # (A) 0.2 k/uL (0-1.0); Monocytes % (A) 4 %; Neutrophils # (A) 2.1 k/uL (1.3-7.7); Neutrophils % (A) 48 %; Platelet Count 166 k/uL (150-450); RBC 3.28 m/uL (3.80-5.40); RDW 12.5 % (11.5-15.5); WBC 4.4 k/uL (3.8-10.6)
[2022-09-09 05:46] LABS: ALT 15 U/L (4-34); AST 20 U/L (14-36); African American GFR (CKD) >90 (>60 ml/min/1.73 sqM); Albumin 3.4 g/dL (3.5-5.0); Alkaline Phosphatase 46 U/L (38-126); Anion Gap 6 mmol/L; Blood Urea Nitrogen 20 mg/dL (7-17); Carbon Dioxide 24 mmol/L (22-30); Chloride 102 mmol/L (98-107); Glucose 130 mg/dL (74-99); Non-African American GFR(CKD) >90 (>60 ml/min/1.73 sqM); Potassium 4.4 mmol/L (3.5-5.1); Sodium 132 mmol/L (137-145); Total Bilirubin 0.4 mg/dL (0.2-1.3); Total Protein 5.5 g/dL (6.3-8.2)
[2022-09-09] MEDS: LEVOTHYROXINE 50 MCG TAB PO SCH (06:12)
[2022-09-09 06:30] LABS: Glucose,Whole Blood 129 mg/dL (70-110)
[2022-09-09] MEDS: INSULIN ASPART (NovoLOG) 100 UNIT/ML VIAL SQ SCH ×4 (06:34→20:12)
[2022-09-09] MEDS: levETIRAcetam 500 MG TAB PO SCH ×2 (08:00→20:12)
[2022-09-09] MEDS: DULoxetine HCL 60 MG CAPSULE.DR PO SCH (08:00)
[2022-09-09] MEDS: MONTELUKAST 10 MG TAB PO SCH (08:00)
[2022-09-09] MEDS: GABAPENTIN 400 MG CAP PO SCH ×3 (08:00→20:59)
[2022-09-09] MEDS: PANTOPRAZOLE 40 MG/10 ML VIAL IV SCH (08:01)
[2022-09-09] MEDS: LIDOCAINE 5% PATCH TOPICAL SCH (08:12)
--- NOTE | 2022-09-09 09:41 | P.PN ---
Subjective Progress Note Date: 09/09/22 I am seeing this patient in new consultation today 09/08/2022 after a rapid response was called overhead for hypotension. The patient is a 67-year-old female with past medical history significant for diabetes mellitus type 2, hypothyroidism, hypertension, osteoarthritis, chronic lower back pain, and rece nt ex-smoker as of March,. Patient originally presented to the emergency room on September 05 with a chief complaint of acute shortness of breath that started over the weekend. She does state that her shortness breath is worse on exertion, often accompanied by chest pain and diaphoresis which subside with rest. Denies any heart palpitations, syncope, lower extremity swelling, orthopnea, PND. Denies any history of pulmonary diseases including asthma or COPD. She denies any fevers, chills, cough, wheezing, hemoptysis. Chest x-ray on arrival showed no acute cardiopulmonary process. Negative for influenza, RSV, COVID-19. Follow-up chest CTA was negative for pulmonary embolism. It did show cardiomegaly with trace bilateral pleural effusions and mild pulmonary vascular congestion. Patient was started on Lasix 40 mg daily. A transthoracic echocardiogram showed a reduced ejection fraction of 30-35%. Earlier this morning, the patient was on the cardiac stepdown unit, and was found to have symptomatic hypotension. Apparently, the patient was minimally responsive, with a blood pressure of 50/30 mmHg. She was given a one-time dose of Narcan. The patient did receive a p.m. dose of methadone, Percocet, and trazodone late last night. A rapid response was initiated. The patient was placed on a 15 L nonrebreather, however, she is oxygenating at 100%. She is currently sitting up in bed, in no acute distress, and was easily transitioned to room air. She is alert and oriented. I did give the patient a total of 1.5 L normal saline bolus, which initially improved the patient's blood pressure. Approximately 1 L hour later she did become hypotensive again. I was leery to give additional fluid boluses due to the patient's reduced ejection fraction and possible heart failure exacerbation. The patient was transferred to the intensive care unit for norepinephrine infusion. Possible tentative heart catheterization planned for today per cardiology note. The patient is seen today 09/09/2022 in follow-up in the intensive care unit. She is currently resting comfortably in bed. Awake and alert in no acute distress. She is maintaining O2 saturations in the 90s on room air. No IV fluids. Lungs sounds are clear. Chest x-ray revealed no acute pulmonary process. White count 4.4. Hemoglobin 10.7. Platelets 166. Sodium 132. Potassium 4.4. Bicarb 24. BUN 20. Creatinine 0.46. Glucose 130. Plan is for possible cardiac catheterization today. Objective - Vital Signs Vital signs: Vital Signs Temp 98.2 F 09/09/22 04:00 Pulse 71 09/09/22 04:00 Resp 16 09/09/22 04:00 BP 141/86 09/09/22 04:00 Pulse Ox 95 09/09/22 07:36 FiO2 Intake & Output 09/08/22 09/09/22 09/09/22 18:59 06:59 18:59 Intake Total 128.174 Balance 128.174 Weight 51.3 kg Intake: IV 100 Sodium Chloride 0.9% 1, 100 000 ml @ 20 mls/hr IV . Q24H NATHAN Rx#:[id number] Intake, IV Titration 28.174 Amount Norepinephrine 4 mg In 8.174 Sodium Chloride 0.9% 250 ml @ 0.03 MCG/KG/MIN 5. 703 mls/hr IV .Q24H NATHAN Rx#:[id number] Sodium Chloride 0.9% 1, 20 000 ml @ 20 mls/hr IV . Q24H NATHAN Rx#:[id number] Other: Voiding Method Toilet Toilet # Voids 1 0 # Bowel Movements 1 - Exam GENERAL EXAM: Alert, 67 year-old female, on room air , comfortable in no apparent distress. HEAD: Normocephalic and atraumatic EYES: Normal reaction of pupils, equal size. NOSE: Clear with pink turbinates. THROAT: No erythema or exudates. NECK: No masses, no JVD. CHEST: No chest wall deformity. LUNGS: Equal air entry with no wheezes, rhonchi, or focal dullness. CVS: S1 and S2 normal with no audible murmur, regular rhythm. No extra heart sounds ABDOMEN: No hepatosplenomegaly, active bowel sounds, no guarding or rigidity. SPINE: No scoliosis or deformity SKIN: No rashes CENTRAL NERVOUS SYSTEM: No focal deficits, tone is normal in all 4 extremities. EXTREMITIES: There is no peripheral edema, clubbing, or cyanosis. Peripheral pulses 1+ throughout. - Labs CBC & Chem 7: 09/09/22 05:04 09/09/22 05:04 Labs: Abnormal Lab Results - Last 24 Hours (Table) 09/08/22 09/08/22 09/08/22 Range/Units 12:32 16:48 20:37 RBC (3.80-5.40) m/uL Hgb (11.4-16.0) gm/dL Hct (34.0-46.0) % Sodium (137-145) mmol/L BUN (7-17) mg/dL Creatinine (0.52-1.04) mg/dL Glucose (74-99) mg/dL POC Glucose (mg/dL) 147 H 156 H 165 H (70-110) mg/dL Total Protein (6.3-8.2) g/dL Albumin (3.5-5.0) g/dL 09/08/22 09/08/22 09/09/22 Range/Units 21:48 23:46 05:04 RBC (3.80-5.40) m/uL Hgb (11.4-16.0) gm/dL Hct (34.0-46.0) % Sodium 132 L (137-145) mmol/L BUN 20 H (7-17) mg/dL Creatinine 0.46 L (0.52-1.04) mg/dL Glucose 130 H (74-99) mg/dL POC Glucose (mg/dL) 60 L 143 H (70-110) mg/dL Total Protein 5.5 L (6.3-8.2) g/dL Albumin 3.4 L (3.5-5.0) g/dL 09/09/22 09/09/22 Range/Units 05:04 06:28 RBC 3.28 L (3.80-5.40) m/uL Hgb 10.7 L (11.4-16.0) gm/dL Hct 32.0 L (34.0-46.0) % Sodium (137-145) mmol/L BUN (7-17) mg/dL Creatinine (0.52-1.04) mg/dL Glucose (74-99) mg/dL POC Glucose (mg/dL) 129 H (70-110) mg/dL Total Protein (6.3-8.2) g/dL Albumin (3.5-5.0) g/dL Assessment and Plan Assessment: Severe symptomatic hypotension, refractory to fluid resuscitation with a total of 1.5 L normal saline bolus. Patient ultimately required transfer to the intensive care unit for vasopressor support in the form of norepinephrine. She is off pressors and maintaining good blood pressures. Exacerbation of systolic congestive heart failure, chest CTA on arrival showed cardiomegaly with small bilateral pleural effusions and pulmonary vascular congestion. NT proBNP was elevated at 4890. Echocardiogram done this admission shows a reduced ejection fraction of 30-35%. Acute hypoxemic respiratory failure, secondary to above, was initially on 15 L nonrebreather, recovered and currently on room air. Diabetes mellitus type 2, [id number] Hypothyroidism Dyslipidemia Chronic lower back pain, managed on outpatient basis with methadone and when necessary Percocets History of seizure disorder Ex-smoker as of March,. Reported approximately 61-83-ciwb-year history Plan: The patient was seen and evaluated She is alert and oriented Stable and on room air Possible cardiac catheterization today Possible transfer to the selective care unit today We'll continue to follow I have personally seen and examined the patient, performed the documentation and the assessment and plan as written. Number of minutes spent on the visit: 10.
[2022-09-09] MEDS: oxyCODONE-APAP 10-325MG 1 EACH TAB PO PRN ×3 (10:40→22:29)
[2022-09-09] MEDS: HEPARIN SODIUM,PORCINE/PF 5,000 UNIT/0.5 ML SYRINGE SQ SCH ×2 (10:43→20:12)
[2022-09-09] MEDS ORDERED: ALPRAZolam 0.5 MG TAB PO PRN (11:09)
[2022-09-09] MEDS ORDERED: ALPRAZolam 0.25 MG TAB PO PRN (11:09)
[2022-09-09] MEDS ORDERED: ASPIRIN 325 MG TAB PO STA (11:09)
[2022-09-09] MEDS ORDERED: NITROGLYCERIN SL TABS 0.4 MG TAB SUBLINGUAL PRN (11:09)
[2022-09-09 11:16] LABS: Glucose,Whole Blood 279 mg/dL (70-110)
[2022-09-09] MEDS ORDERED: MIDAZOLAM 2 MG/2 ML VIAL IVP ONE (12:55)
[2022-09-09] MEDS ORDERED: SODIUM CHLORIDE 0.9% 1,000 ML IV ONE (12:55)
[2022-09-09] MEDS ORDERED: LIDOCAINE 1% INJ 10MG/ML (5 ML VIAL-PF) SQ ONE (12:56)
[2022-09-09] MEDS ORDERED: VERAPAMIL SYRINGE (5 MG/10 ML) INTRAARTER ONE (12:59)
[2022-09-09] MEDS ORDERED: HEPARIN SODIUM 1,000 UN/ML (10ML VL) IV ONE (13:00)
[2022-09-09] MEDS ORDERED: IOPAMIDOL-370 100ML BTL INJ ONE (13:08)
[2022-09-09] MEDS ORDERED: RX INFO: IV CONTRAST WAS GIVEN 1 EACH MISC MISCELLANE PRN (13:11)
[2022-09-09] MEDS ORDERED: SODIUM CHLORIDE 0.9% 1,000 ML IV SCH (13:15)
[2022-09-09] MEDS: ACETAMINOPHEN TAB 325 MG TAB PO PRN (14:37)
--- NOTE | 2022-09-09 15:11 | P.GSCN ---
History of Present Illness Consult date: 09/09/22 Reason for Consult: Triple-vessel coronary artery disease Requesting physician: Sudhir Poole History of present illness: This is a 67-year-old female patient who follows outpatient with Dr. Wong for primary care. She has a previous medical history of hypertension, hyperlipidemia, diabetes, hypothyroid, chronic pain with methadone use, and previous tobacco dependence. She presented to [facility] emergency room on September 05 with complaints of progressive shortness of breath over a three-day period. She denied any chest pain or any other new symptomatology. Chest x-ray demonstrated no acute process. EKG demonstrated sinus rhythm with a left bundle branch block. CTA of the chest demonstrated no pulmonary embolism, there was cardiomegaly with trace bilateral pleural effusions and pulmonary vascular c ongestion present. Lab work revealed WBC 6.5, hemoglobin 12.7, platelet count 164,000, d-dimer 1.22, creatinine 0.44, magnesium 1.0, BNP 4980, troponin negative, all serology negative. She was given IV Lasix and started on IV heparin, and admitted for further evaluation and treatment of suspected heart failure. Cardiology was consulted. Transthoracic echocardiogram was completed demonstrating reduced left ventricular systolic function with EF 30-35%, mild AI, mild TR, trace to mild MR, and small pericardial effusion. On September 08 she became hypotensive and was transferred to the intensive care unit and placed on IV Levophed. She has since recovered and was recommended to undergo heart cat heterization which was completed today by Dr. Poole and which demonstrated triple-vessel coronary artery disease. Due to this finding consultation was placed to Dr. Ponce from cardiothoracic surgery for surgical revascularization recommendations. Review of Systems Review of systems was completed and was negative except as noted - Constitutional Reports chronic pain - Cardiovascular Reports dyspnea on exertion - Respiratory Reports dyspnea Past Medical History Past Medical History: Coronary Artery Disease (CAD), Diabetes Mellitus, Hyperlipidemia, Hypertension, Osteoarthritis (OA), Thyroid Disorder Additional Past Medical History / Comment(s): chronic pain History of Any Multi-Drug Resistant Organisms: None Reported Past Surgical History: Orthopedic Surgery, Tonsillectomy, Tubal Ligation Additional Past Surgical History / Comment(s): cataracts; 2 right leg surgeries including plate for her knee Past Anesthesia/Blood Transfusion Reactions: No Reported Reaction Past Psychological History: Depression Smoking Status: Former smoker Past Alcohol Use History: None Reported Past Drug Use History: None Reported Additional History: Quit smoking March 2022, prior to that had smoked 1 pack per day off and on for "years" Medications and Allergies Home Medications Medication Instructions Recorded Confirmed Type Gabapentin 800 mg PO TID 10/27/16 09/05/22 History DULoxetine HCL [Cymbalta] 120 mg PO DAILY 08/02/18 09/05/22 History levETIRAcetam [Keppra] 1,000 mg PO BID 08/02/18 09/05/22 History metFORMIN HCL [Glucophage] 500 mg PO BID 08/02/18 09/05/22 History traZODone HCL 200 mg PO HS 08/02/18 09/05/22 History Levothyroxine Sodium [Synthroid] 50 mcg PO DAILY 09/05/22 09/05/22 History Methadone [Dolophine] 10 mg PO TID 09/05/22 09/05/22 History Montelukast [Singulair] 10 mg PO DAILY 09/05/22 09/05/22 History oxyCODONE-APAP 10-325MG [Percocet 1 tab PO TID 09/05/22 09/05/22 History 10-325 mg] Allergies Allergy/AdvReac Type Severity Reaction Status Date / Time cephalexin monohydrate Allergy Unknown Verified 09/05/22 18:45 [From Keflex] Cephalosporins Allergy Unknown Verified 09/05/22 18:45 clarithromycin [From Biaxin] Allergy Unknown Verified 09/05/22 18:45 NSAIDS (Non-Steroidal Allergy Unknown Verified 09/05/22 18:45 Anti-Inflamma Surgical - Exam Vital Signs Temp Pulse Resp BP Pulse Ox 98.6 F 104 H 22 159/85 99 09/05/22 16:48 09/05/22 16:48 09/05/22 16:48 09/05/22 16:48 09/05/22 16:48 CONSTITUTIONAL: Awake and alert, appears angry and frustrated regarding lack of methadone prescription EYES: Pupils equal, round, reactive to light, normal ocular movement ENT: Moist mucous membranes without oral lesions present NECK: No masses, no bruits, trachea midline RESPIRATORY: Lungs sounds diminished bilaterally. Respirations even, nonlabored. Currently on room air with oxygen saturation 98%. Strong cough CARDIOVASCULAR: S1, S2 present. Regular rate and rhythm, sinus rhythm on telemetry. Palpable peripheral pulses bilaterally. No edema present. No calf pain or tenderness noted. No significant lower extremity varicosities noted GASTROINTESTINAL: Abdomen soft, nontender, nondistended without masses or organomegaly noted. There is no rebound or guarding present. Active bowel sounds present 4 quadrants. GENITOURINARY: Deferred INTEGUMENTARY: Skin is warm and dry with evidence of good perfusion. Right radial heart cath site with T band in place NEUROLOGIC: Cranial nerves II through XII intact, normal coordination, no obvious motor or sensory deficits, speech is normal MUSKULOSKELETAL: Able to move all extremities, strength equal bilaterally, normal posture PSYCHIATRIC: Alert and oriented to person place and time Results - Labs 09/09/22 05:04 09/09/22 05:04 Abnormal Lab Results - Last 24 Hours (Table) 09/08/22 09/08/22 09/08/22 Range/Units 16:48 20:37 21:48 RBC (3.80-5.40) m/uL Hgb (11.4-16.0) gm/dL Hct (34.0-46.0) % Sodium (137-145) mmol/L BUN (7-17) mg/dL Creatinine (0.52-1.04) mg/dL Glucose (74-99) mg/dL POC Glucose (mg/dL) 156 H 165 H 60 L (70-110) mg/dL Total Protein (6.3-8.2) g/dL Albumin (3.5-5.0) g/dL 09/08/22 09/09/22 09/09/22 Range/Units 23:46 05:04 05:04 RBC 3.28 L (3.80-5.40) m/uL Hgb 10.7 L (11.4-16.0) gm/dL Hct 32.0 L (34.0-46.0) % Sodium 132 L (137-145) mmol/L BUN 20 H (7-17) mg/dL Creatinine 0.46 L (0.52-1.04) mg/dL Glucose 130 H (74-99) mg/dL POC Glucose (mg/dL) 143 H (70-110) mg/dL Total Protein 5.5 L (6.3-8.2) g/dL Albumin 3.4 L (3.5-5.0) g/dL 09/09/22 09/09/22 Range/Units 06:28 11:15 RBC (3.80-5.40) m/uL Hgb (11.4-16.0) gm/dL Hct (34.0-46.0) % Sodium (137-145) mmol/L BUN (7-17) mg/dL Creatinine (0.52-1.04) mg/dL Glucose (74-99) mg/dL POC Glucose (mg/dL) 129 H 279 H (70-110) mg/dL Total Protein (6.3-8.2) g/dL Albumin (3.5-5.0) g/dL Diabetes panel 09/09/22 Range/Units 05:04 Sodium 132 L (137-145) mmol/L Potassium 4.4 (3.5-5.1) mmol/L Chloride 102 (98-107) mmol/L Carbon Dioxide 24 (22-30) mmol/L BUN 20 H (7-17) mg/dL Creatinine 0.46 L (0.52-1.04) mg/dL Glucose 130 H (74-99) mg/dL Calcium 9.0 (8.4-10.2) mg/dL AST 20 (14-36) U/L ALT 15 (4-34) U/L Alkaline Phosphatase 46 (38-126) U/L Total Protein 5.5 L (6.3-8.2) g/dL Albumin 3.4 L (3.5-5.0) g/dL Calcium panel 09/09/22 Range/Units 05:04 Calcium 9.0 (8.4-10.2) mg/dL Albumin 3.4 L (3.5-5.0) g/dL Pituitary panel 09/09/22 Range/Units 05:04 Sodium 132 L (137-145) mmol/L Potassium 4.4 (3.5-5.1) mmol/L Chloride 102 (98-107) mmol/L Carbon Dioxide 24 (22-30) mmol/L BUN 20 H (7-17) mg/dL Creatinine 0.46 L (0.52-1.04) mg/dL Glucose 130 H (74-99) mg/dL Calcium 9.0 (8.4-10.2) mg/dL Adrenal panel 07/06/23 Range/Units 05:04 Sodium 132 L (137-145) mmol/L Potassium 4.4 (3.5-5.1) mmol/L Chloride 102 (98-107) mmol/L Carbon Dioxide 24 (22-30) mmol/L BUN 20 H (7-17) mg/dL Creatinine 0.46 L (0.52-1.04) mg/dL Glucose 130 H (74-99) mg/dL Calcium 9.0 (8.4-10.2) mg/dL Total Bilirubin 0.4 (0.2-1.3) mg/dL AST 20 (14-36) U/L ALT 15 (4-34) U/L Alkaline Phosphatase 46 (38-126) U/L Total Protein 5.5 L (6.3-8.2) g/dL Albumin 3.4 L (3.5-5.0) g/dL - Imaging Chest x-ray: report reviewed, image reviewed CT scan - chest: report reviewed, image reviewed EKG: image reviewed Additional studies: Heart catheterization and echocardiogram films reviewed with Dr. Ponce Assessment and Plan Assessment: Triple-vessel coronary artery disease Acute systolic heart failure, EF 30-35%, BNP 4890 on admission Shortness of breath, secondary to above Hypertension, hypotensive during this admission requiring vasopressor support Hyperlipidemia, cholesterol 227, LDL 129 Xbk-[id number] diabetes, hemoglobin A1c 6.5% Hypothyroid Chronic pain with methadone use Previous tobacco dependence Plan: The patient was seen and examined at the bedside in the intensive care unit with Dr. Ponce. Chart/diagnostics reviewed including heart catheterization films. Our recommendation is for outpatient elective coronary artery bypass surgery pending the outcome of preoperative testing which was initiated. The usual perioperative course of surgery was discussed in detail with the patient, risks and benefits reviewed, questions answered. The patient's only concern right now is being able to have her methadone, she is quite angry that has been taken away from her and states she has chronic pain. She denies any current shortness of breath, and is on room air with oxygen saturation in the high 90s. Recommend continuing statin, aspirin and beta luis added to medication regimen. Patient counseled to continue smoking cessation. We will get 5 m walk test and calculate STS risk score once all testing has been completed. Medical management of other comorbidities per internal medicine, cardiology. From cardiothoracic surgery standpoint patient can be discharged to home to follow up outpatient with cardiology who will send her to us when she is ready for surgery. This was discussed between Dr. Ponce and Dr. Poole. Please call us with any further questions. I have personally seen and examined the patient, performed the documentation and the assessment and plan as written. Number of minutes spent on the visit: 30. Linda Fowler, OMERO-C The patient is a 67 y/o female with a history of multiple medical problems, including chronic pain on narcotics/methadone, who was admitted to the hospital with shortness of breath. Work up revealed cardiomyopathy with multi-vessel, chronic appearing coronary artery disease. Patient ruled out for LA. Coronary artery bypass recommended. The risks, benefits, and alternatives to surgery were discussed with the patient. All of her questions were answered. At this point, she is mainly concerned with resuming her methaodone given her generalized pain. I spoke with Dr. Poole. The patient is currently not on medical therapy. We a greed to discharge her from the hospital on the appropriate medications and have her follow up in his office. When she is better tuned up, he will refer her back to me for surgical intervention. I have personally seen and examined the patient, reviewed the documentation and the assessment and plan as written. Number of minutes spent on the visit: 45. Blas Ponce MD
--- NOTE | 2022-09-09 15:34 | P.PN ---
Subjective Progress Note Date: 09/09/22 67-year-old lady with past medical history significant for hypothyroidism, diabetes mellitus, seizures or present to the ER because of shortness of breath. Patient stated that she was all right yesterday when she woke up in the middle night gasping for air. She denies any chest pain that time. There was no complain of any palpitation. Patient stated the shortness of breath was present on rest as well as exertion. Because of this shortness of breath, patient came to the ER Initial lab work in the ER showed WBC 6.5, hemoglobin 12.7, platelet count 164, sodium 135, potassium 4.3, BUN 12, creatinine 0.44, glucose 160, magnesium 1 Chest x-ray done showed no acute process CTA chest done negative for PE, cardiomegaly with trace bilateral pleural effusion and pulmonary vascular congestion, groundglass airspace opacities in the left upper lobe, mild emphysema EKG done showed no T-wave inversion, left bundle-branch block seen, EKG was reviewed by cardiology, Associate Dean was not activated Patient admitted to medicine service Objective - Vital Signs Vital signs: Vital Signs Temp 98.2 F 09/09/22 04:00 Pulse 101 H 09/09/22 10:00 Resp 21 09/09/22 10:00 BP 182/103 09/09/22 10:00 Pulse Ox 96 09/09/22 10:00 FiO2 Intake & Output 09/08/22 09/09/22 09/09/22 18:59 06:59 18:59 Intake Total 128.174 Balance 128.174 Weight 51.3 kg Intake: IV 100 Sodium Chloride 0.9% 1, 100 000 ml @ 20 mls/hr IV . Q24H NATHAN Rx#:[id number] Intake, IV Titration 28.174 Amount Norepinephrine 4 mg In 8.174 Sodium Chloride 0.9% 250 ml @ 0.03 MCG/KG/MIN 5. 703 mls/hr IV .Q24H NATHAN Rx#:[id number] Sodium Chloride 0.9% 1, 20 000 ml @ 20 mls/hr IV . Q24H NATHAN Rx#:[id number] Other: Voiding Method Toilet Toilet Toilet # Voids 1 0 # Bowel Movements 1 - Exam GENERAL: The patient is alert and oriented x3, not in any acute distress. Well developed, well nourished. HEENT: Pupils are round and equally reacting to light. EOMI. No scleral icterus. No conjunctival pallor. Normocephalic, atraumatic. No pharyngeal erythema. No thyromegaly. CARDIOVASCULAR: S1 and S2 present. No murmurs, rubs, or gallops. PULMONARY: Chest is clear to auscultation, no wheezing or crackles. ABDOMEN: Soft, nontender, nondistended, normoactive bowel sounds. No palpable organomegaly. MUSCULOSKELETAL: No joint swelling or deformity. EXTREMITIES: No cyanosis, clubbing, or pedal edema. NEUROLOGICAL: Gross neurological examination did not reveal any focal deficits. SKIN: No rashes. - Labs CBC & Chem 7: 09/09/22 05:04 09/09/22 05:04 Labs: Abnormal Lab Results - Last 24 Hours (Table) 09/08/22 09/08/22 09/08/22 Range/Units 12:32 16:48 20:37 RBC (3.80-5.40) m/uL Hgb (11.4-16.0) gm/dL Hct (34.0-46.0) % Sodium (137-145) mmol/L BUN (7-17) mg/dL Creatinine (0.52-1.04) mg/dL Glucose (74-99) mg/dL POC Glucose (mg/dL) 147 H 156 H 165 H (70-110) mg/dL Total Protein (6.3-8.2) g/dL Albumin (3.5-5.0) g/dL 09/08/22 09/08/22 09/09/22 Range/Units 21:48 23:46 05:04 RBC (3.80-5.40) m/uL Hgb (11.4-16.0) gm/dL Hct (34.0-46.0) % Sodium 132 L (137-145) mmol/L BUN 20 H (7-17) mg/dL Creatinine 0.46 L (0.52-1.04) mg/dL Glucose 130 H (74-99) mg/dL POC Glucose (mg/dL) 60 L 143 H (70-110) mg/dL Total Protein 5.5 L (6.3-8.2) g/dL Albumin 3.4 L (3.5-5.0) g/dL 09/09/22 09/09/22 09/09/22 Range/Units 05:04 06:28 11:15 RBC 3.28 L (3.80-5.40) m/uL Hgb 10.7 L (11.4-16.0) gm/dL Hct 32.0 L (34.0-46.0) % Sodium (137-145) mmol/L BUN (7-17) mg/dL Creatinine (0.52-1.04) mg/dL Glucose (74-99) mg/dL POC Glucose (mg/dL) 129 H 279 H (70-110) mg/dL Total Protein (6.3-8.2) g/dL Albumin (3.5-5.0) g/dL Assessment and Plan Assessment: Acute systolic CHF Hypotension Cardiogenic shock Acute hypoxic respiratory failure Hypomagnesemia Hypothyroidism Hyperlipidemia Kft-hxeieho-pgcwkvcbw diabetes mellitus Monitor vital signs Monitor CBC Monitor CMP Monitor vital signs Continue Levophed, continue to wean it down. Continue IV Lasix HbA1c is 6.5 Continue sliding scale insulin, Continue Synthroid Continue Lipitor 2-D echo showed LVEF of 30-35%, small pericardial effusion, thickened pericardium Follow-up on cardiology recommendations, plan to do cardiac cath, nothing by mouth for now Critical care consulted for hypotension
[2022-09-09 16:14] LABS: Glucose,Whole Blood 167 mg/dL (70-110)
[2022-09-09 16:55] LABS: Appearance,Urine Clear (Clear); Bilirubin,Urine Negative (Negative); Blood,Urine Negative (Negative); Color,Urine Light Yellow; Glucose,Urine (UA) Negative (Negative); Ketones,Urine Negative (Negative); Leukocyte Esterase,Urine Negative (Negative); Nitrite,Urine Negative (Negative); PH, Urine 6.5 (5.0-8.0); Protein,Urine Negative (Negative); Specific Gravity,Urine 1.018 (1.001-1.035); Urobilinogen,Urine <2.0 mg/dL (<2.0)
--- NOTE | 2022-09-09 16:55 | US ---
EXAMINATION TYPE: US vein mapping BILAT DATE OF EXAM: 09/09/2022 4:41 PM COMPARISON: NONE CLINICAL INDICATION: Female, 67 years old with history of preop cardiac surgery; open heart pt SIDE PERFORMED: Bilateral TECHNIQUE: Lower extremity saphenous vein is examined and measured utilizing real time linear array sonography. DUPLEX FINDINGS: Greater Saphenous: Color flow seen Lesser Saphenous: Color flow seen Measurements in mm: Right Greater Saphenous: Groin: 5.0 x 4.1 mm High Thigh: 4.4 x 3.5 mm Mid Thigh: 2.8 x 2.5 mm Above Knee: 2.9 x 2.6 mm Knee: 3.4 x 2.9 mm Below Knee: 3.2 x 2.1 mm Mid Calf: 1.6 x 1.2 mm At Ankle: 2.1 x 1.6 mm Left Greater Saphenous: Groin: 4.5 x 4.1 mm High Thigh: 3.9 x 3.8 mm Mid Thigh: 4.1 x 3.2 mm Above Knee: 2.5 x 2.6 mm Knee: 4.5 x 3.9 mm Below Knee: 2.9 x 2.2 mm Mid Calf: 2.6 x 1.7 mm At Ankle: 2.8 x 2.2 mm IMPRESSION: 1. Bilateral GSV measurements listed above. 2. Performing surgeon to determine viability as conduit.
--- NOTE | 2022-09-09 16:58 | US ---
EXAMINATION TYPE: US carotid duplex BILAT DATE OF EXAM: 09/09/2022 COMPARISON: NONE CLINICAL INDICATION: Female, 67 years old with history of preop cardiac surgery; preop heart surgery TECHNIQUE: Carotid duplex ultrasound examination. Indirect Doppler criteria was utilized. FINDINGS: EXAM MEASUREMENTS: RIGHT: Peak Systolic Velocity (PSV) cm/sec ----- Right CCA: 59.5 ----- Right ICA: 69.7 ----- Right ECA: 79.0 ICA/CCA ratio: 1.2 RIGHT: End Diastole cm/sec ----- Right CCA: 17.3 ----- Right ICA: 20.2 ----- Right ECA: 8.7 LEFT: Peak Systolic Velocity (PSV) cm/sec ----- Left CCA: 68.6 ----- Left ICA: 64.6 ----- Left ECA: 67.2 ICA/CCA ratio: 0.9 LEFT: End Diastole cm/sec ----- Left CCA: 14.4 ----- Left ICA: 20.6 ----- Left ECA: 8.9 VERTEBRALS (direction of flow): Right Vertebral: Antegrade Left Vertebral: Antegrade Rhythm: Normal CURRICULUM AND INSTRUCTION DIRECTOR NOTES: Minimal plaque seen in bilateral bulbs. No elevated velocities visualized. IMPRESSION: 1. No evidence for hemodynamically significant stenosis. 2. Bilateral atherosclerotic plaquing of the carotid bulbs.
--- NOTE | 2022-09-09 16:59 | US ---
EXAMINATION TYPE: Pre-Operative Non-Invasive Evaluation of the hand for Potential Radial Artery Allyjaqueline enriquez, Measurements only DATE OF EXAM: 09/09/2022 4:41 PM CLINICAL INDICATION: Female, 67 years old with history of measurements only; open heart pt SIDE PERFORMED: Left TECHNIQUE: Radial artery is measured utilizing real time linear array sonography. Dominant hand: Right Duplex Findings: Radial Artery: Color flow seen Measurements in mm, transverse view: Left Radial: Patent Proximal: 2.3 x 2.2 mm Mid: 2.8 x 2.6 mm Distal: 2.2 x 2.0 mm Origin not seen due to IV IMPRESSION: 1. Radial artery measurements listed above.
--- NOTE | 2022-09-09 19:35 | P.PCN ---
Date of Procedure: 09/09/22 Operative Findings: CARDIAC CATHETERIZATION PERFORMING PHYSICIAN: Sudhir Poole MD, RPVI PROCEDURE PERFORMED: 1. Selective right and left coronary angiogram 2. Left heart catheterization 3. Ultrasound-guided access of the right radial artery INDICATION: Newly diagnosis cardiomyopathy COMPLICATION: None APPROACH: Right radial artery LEVEL OF SEDATION: Moderate with a sedation length of 20 minutes PROCEDURE DESCRIPTION: After obtaining an informed consent, the patient was brought to cardiac computer lab para professional. Local anesthesia was performed using lidocaine subcutaneously. The right radial artery was cannulated using Seldinger technique, the guidewire passed easily, following that we advanced a 5-Austrian sheath dilator assembly, the wire and dilator were removed and sheath was flushed. Following that, 2 mg of verapamil along with 5000 unit heparin were given. Selective right and left coronary angiogram using a 6-Austrian JR4 and JL 3.5 catheters. Following that we did left heart catheterization using 6-Austrian pigtail catheter. The procedure was completed there was no complication. SELECTIVE CORONARY ANGIOGRAM: The right coronary artery: Large caliber vessel and dominant vessel. The RCA has severe lesion in the midportion appears to be in the range of 70-80%. The RCA is calcified Left main: Calcified was mild disease. Bifurcates into an LCx and LAD The left circumflex: Large caliber vessel and nondominant dominant vessel. The LCx appeared to be chronically occluded in the proximal portion by the bifurcation of a large OM branch which fills by ipsilateral collateral The left anterior descending artery: Large caliber vessel. The LAD also is calcified was a tubular lesion in the midportion appears to be in the range of 80-90%. The LAD gives rises into a large diagonal branch which also has a long tubular lesion appears to be in the range of 70-80% HEMODYNAMICS: LVEDP was about 8 mmHg was no significant gradient across aortic valve CONCLUSION: 1. Severe triple-vessel coronary artery disease 2. Calcified right and left coronary system POSTPROCEDURE MANAGEMENT: Giving the above anatomy I advised the patient to be seen by cardiothoracic surgeon for evaluation of CABG
[2022-09-09 19:55] LABS: Glucose,Whole Blood 225 mg/dL (70-110)
[2022-09-09] MEDS: ATORVASTATIN 40 MG TAB PO SCH (20:12)
--- NOTE | 2022-09-09 20:43 | P.PN ---
Subjective Progress Note Date: 09/09/22 Principal diagnosis: Cardiomyopathy The patient is a pleasant 67-year-old known patient was admitted to the hospital with heart failure and subsequently she underwent an echo and that showed cardiomyopathy. Her cardiac enzymes remained within normal limits. Hypotension and for that reason she was transferred to the intensive care unit where she received norepinephrine. Beside the echo she underwent an EKG which showed sinus mechanism was LBBB with normal cardiac enzymes. We advised the patient to undergo a heart catheterization. September [id number] She was seen and evaluated this morning. She reports no pain in the chest. The shortness of breath has improved. No dizziness or lightheadedness. She has been maintaining normal sinus mechanism with marginally low blood pressure. The plan is to proceed was coronary angiogram later on today. The procedure in details was explained to the patient. The coronary angiogram is to rule out severe coronary artery disease as an etiology for the cardiomyopathy. The examination is remarkable for marginally low blood pressure with clear breathing sounds bilaterally and regular rate and rhythm and no lower extremity edema noted. Assessment Cardiomyopathy of unknown etiology Hypotension requiring norepinephrine which has improved LBBB Plan Continue the current medical regimen Maximize medical treatment for cardiomyopathy if the pressure allow Proceed was coronary angiogram later on today Objective - Vital Signs Vital signs: Vital Signs Temp 98.4 F 09/09/22 20:00 Pulse 78 09/09/22 20:00 Resp 12 09/09/22 20:00 BP 121/83 09/09/22 20:00 Pulse Ox 94 L 09/09/22 20:00 FiO2 Intake & Output 09/09/22 09/09/22 09/10/22 06:59 18:59 06:59 Intake Total 60 635 Output Total 0 800 Balance 60 -165 Weight 51.3 kg Intake: IV 60 375 Invasive Line 1 10 Sodium Chloride 0.9% 1, 375 000 ml @ 75 mls/hr IV . [id number] [facility] Rx#:[id number] Oral 260 Output: Urine 0 800 Other: Voiding Method Toilet Toilet # Voids 0 - Labs CBC & Chem 7: 09/09/22 05:04 09/09/22 05:04 Labs: Abnormal Lab Results - Last 24 Hours (Table) 09/08/22 09/08/22 09/09/22 Range/Units 21:48 23:46 05:04 RBC (3.80-5.40) m/uL Hgb (11.4-16.0) gm/dL Hct (34.0-46.0) % Sodium 132 L (137-145) mmol/L BUN 20 H (7-17) mg/dL Creatinine 0.46 L (0.52-1.04) mg/dL Glucose 130 H (74-99) mg/dL POC Glucose (mg/dL) 60 L 143 H (70-110) mg/dL Total Protein 5.5 L (6.3-8.2) g/dL Albumin 3.4 L (3.5-5.0) g/dL 09/09/22 09/09/22 09/09/22 Range/Units 05:04 06:28 11:15 RBC 3.28 L (3.80-5.40) m/uL Hgb 10.7 L (11.4-16.0) gm/dL Hct 32.0 L (34.0-46.0) % Sodium (137-145) mmol/L BUN (7-17) mg/dL Creatinine (0.52-1.04) mg/dL Glucose (74-99) mg/dL POC Glucose (mg/dL) 129 H 279 H (70-110) mg/dL Total Protein (6.3-8.2) g/dL Albumin (3.5-5.0) g/dL 09/09/22 09/09/22 Range/Units 16:13 19:54 RBC (3.80-5.40) m/uL Hgb (11.4-16.0) gm/dL Hct (34.0-46.0) % Sodium (137-145) mmol/L BUN (7-17) mg/dL Creatinine (0.52-1.04) mg/dL Glucose (74-99) mg/dL POC Glucose (mg/dL) 167 H 225 H (70-110) mg/dL Total Protein (6.3-8.2) g/dL Albumin (3.5-5.0) g/dL
[2022-09-09] MEDS ORDERED: METOPROLOL TARTRATE 25 MG TAB PO SCH (21:00)
[2022-09-09] MEDS: SODIUM CHLORIDE 0.9% 1,000 ML IV SCH (21:44)
[2022-09-09 23:28] LABS: Hepatitis A Antibody IgM Nonreactive; Hepatitis B Core IgM Nonreactive; Hepatitis B Surface Antigen Nonreactive; Hepatitis C IgG Antibody Nonreactive
[2022-09-10] MEDS: oxyCODONE-APAP 10-325MG 1 EACH TAB PO PRN ×4 (04:14→22:11)
[2022-09-10 05:15] LABS: Basophils % (A) 0 %; Eosinophils # (A) 0.2 k/uL (0-0.7); Eosinophils % (A) 3 %; HCT 36.8 % (34.0-46.0); HGB 12.1 gm/dL (11.4-16.0); Lymphocytes # (A) 1.9 k/uL (1.0-4.8); Lymphocytes % (A) 26 %; MCH 32.8 pg (25.0-35.0); MCHC 32.9 g/dL (31.0-37.0); MCV 99.6 fL (80.0-100.0); Mean Platelet Volume 8.8; Monocytes # (A) 0.3 k/uL (0-1.0); Monocytes % (A) 4 %; Neutrophils # (A) 4.7 k/uL (1.3-7.7); Neutrophils % (A) 67 %; Platelet Count 160 k/uL (150-450); RBC 3.69 m/uL (3.80-5.40); RDW 12.4 % (11.5-15.5)
[2022-09-10 05:24] LABS: African American GFR (CKD) >90 (>60 ml/min/1.73 sqM); Anion Gap 6 mmol/L; Blood Urea Nitrogen 17 mg/dL (7-17); Calcium 9.3 mg/dL (8.4-10.2); Carbon Dioxide 25 mmol/L (22-30); Chloride 99 mmol/L (98-107); Glucose 100 mg/dL (74-99); Non-African American GFR(CKD) >90 (>60 ml/min/1.73 sqM); Potassium 4.3 mmol/L (3.5-5.1); Sodium 130 mmol/L (137-145)
[2022-09-10 05:50] LABS: Glucose,Whole Blood 123 mg/dL (70-110)
[2022-09-10] MEDS: KETOROLAC 15 MG/ML 1 ML VIAL IVP PRN ×3 (06:25→21:08)
[2022-09-10] MEDS: LEVOTHYROXINE 50 MCG TAB PO SCH (06:26)
[2022-09-10] MEDS: INSULIN ASPART (NovoLOG) 100 UNIT/ML VIAL SQ SCH ×4 (06:30→21:14)
[2022-09-10] MEDS ORDERED: HEPARIN SODIUM,PORCINE 2,500 UNIT in SODIUM CHLORIDE 0.9% 250 ML IRRIGATION PRN (07:00)
[2022-09-10] MEDS ORDERED: HEPARIN SODIUM,PORCINE 10,000 UNIT in SODIUM CHLORIDE 0.9% 1,000 ML IRRIGATION PRN (07:00)
--- NOTE | 2022-09-10 08:07 | P.PN ---
Subjective Progress Note Date: 09/10/22 Principal diagnosis: Cardiomyopathy The patient is a pleasant 67-year-old known patient was admitted to the hospital with heart failure and subsequently she underwent an echo and that showed cardiomyopathy. Her cardiac enzymes remained within normal limits. Hypotension and for that reason she was transferred to the intensive care unit where she received norepinephrine. Beside the echo she underwent an EKG which showed sinus mechanism was LBBB with normal cardiac enzymes. We advised the patient to undergo a heart catheterization. September 092022 She was seen and evaluated this morning. She reports no pain in the chest. The shortness of breath has improved. No dizziness or lightheadedness. She has been maintaining normal sinus mechanism with marginally low blood pressure. The plan is to proceed was coronary angiogram later on today. The procedure in details was explained to the patient. The coronary angiogram is to rule out severe coronary artery disease as an etiology for the cardiomyopathy. September 102022 The patient was seen and evaluated this morning that she is asymptomatic and she is a metallic staple beside being slightly tachycardic. Currently she is on aspirin and statin and she is on metoprolol. I'm going to increase the dose of metoprolol and add small dose of AMANUEL inhibitor was lisinopril. The heart catheterization revealed severe triple vessel coronary artery disease and she was seen by the cardiac surgical team and the plan is to pursue coronary artery that is grafting as an outpatient in the next few days. The examination is remarkable for marginally low blood pressure with clear breathing sounds bilaterally and regular rate and rhythm and no lower extremity edema noted. Assessment Severe triple-vessel CAD Cardiomyopathy of unknown etiology Hypotension requiring norepinephrine which has improved LBBB Plan Continue the current medical regimen Increase the dose of beta luis Add lisinopril to the current medical regimen Follow-up with the patient Objective - Vital Signs Vital signs: Vital Signs Temp 98.2 F 09/10/22 04:00 Pulse 77 09/10/22 04:00 Resp 13 09/10/22 04:00 BP 143/89 09/10/22 04:00 Pulse Ox 92 L 09/10/22 05:45 FiO2 Intake & Output 09/09/22 09/10/22 09/10/22 18:59 06:59 18:59 Intake Total 60 645 Output Total 0 800 Balance 60 -155 Weight 51.8 kg Intake: IV 60 385 Invasive Line 1 10 10 Sodium Chloride 0.9% 1, 375 000 ml @ 75 mls/hr IV . [id number] [facility] Rx#:[id number] Oral 260 Output: Urine 0 800 Other: Voiding Method Toilet Toilet # Voids 2 - Labs CBC & Chem 7: 09/10/22 04:40 09/10/22 04:40 Labs: Abnormal Lab Results - Last 24 Hours (Table) 09/09/22 09/09/22 09/09/22 Range/Units 11:15 16:13 19:54 RBC (3.80-5.40) m/uL Sodium (137-145) mmol/L Creatinine (0.52-1.04) mg/dL Glucose (74-99) mg/dL POC Glucose (mg/dL) 279 H 167 H 225 H (70-110) mg/dL 09/10/22 09/10/22 09/10/22 Range/Units 04:40 04:40 05:48 RBC 3.69 L (3.80-5.40) m/uL Sodium 130 L (137-145) mmol/L Creatinine 0.46 L (0.52-1.04) mg/dL Glucose 100 H (74-99) mg/dL POC Glucose (mg/dL) 123 H (70-110) mg/dL
[2022-09-10] MEDS: LIDOCAINE 5% PATCH TOPICAL SCH (08:26)
[2022-09-10] MEDS: ACETAMINOPHEN TAB 325 MG TAB PO PRN (08:27)
[2022-09-10] MEDS: GABAPENTIN 400 MG CAP PO SCH ×3 (08:27→21:12)
[2022-09-10] MEDS: PANTOPRAZOLE 40 MG/10 ML VIAL IV SCH (08:27)
[2022-09-10] MEDS: HEPARIN SODIUM,PORCINE/PF 5,000 UNIT/0.5 ML SYRINGE SQ SCH ×2 (08:27→21:13)
[2022-09-10] MEDS: METOPROLOL TARTRATE 50 MG TAB PO SCH ×2 (08:28→22:10)
[2022-09-10] MEDS: DULoxetine HCL 60 MG CAPSULE.DR PO SCH (08:28)
[2022-09-10] MEDS: MONTELUKAST 10 MG TAB PO SCH (08:28)
[2022-09-10] MEDS: ASPIRIN 81 MG PO SCH (08:28)
[2022-09-10] MEDS: levETIRAcetam 500 MG TAB PO SCH ×2 (08:28→21:12)
--- NOTE | 2022-09-10 11:30 | P.PN ---
Subjective Progress Note Date: 09/10/22 I am seeing this patient in new consultation today 09/08/2022 after a rapid response was called overhead for hypotension. The patient is a 67-year-old female with past medical history significant for diabetes mellitus type 2, hypothyroidism, hypertension, osteoarthritis, chronic lower back pain, and rece nt ex-smoker as of March,. Patient originally presented to the emergency room on September 05 with a chief complaint of acute shortness of breath that started over the weekend. She does state that her shortness breath is worse on exertion, often accompanied by chest pain and diaphoresis which subside with rest. Denies any heart palpitations, syncope, lower extremity swelling, orthopnea, PND. Denies any history of pulmonary diseases including asthma or COPD. She denies any fevers, chills, cough, wheezing, hemoptysis. Chest x-ray on arrival showed no acute cardiopulmonary process. Negative for influenza, RSV, COVID-19. Follow-up chest CTA was negative for pulmonary embolism. It did show cardiomegaly with trace bilateral pleural effusions and mild pulmonary vascular congestion. Patient was started on Lasix 40 mg daily. A transthoracic echocardiogram showed a reduced ejection fraction of 30-35%. Earlier this morning, the patient was on the cardiac stepdown unit, and was found to have symptomatic hypotension. Apparently, the patient was minimally responsive, with a blood pressure of 50/30 mmHg. She was given a one-time dose of Narcan. The patient did receive a p.m. dose of methadone, Percocet, and trazodone late last night. A rapid response was initiated. The patient was placed on a 15 L nonrebreather, however, she is oxygenating at 100%. She is currently sitting up in bed, in no acute distress, and was easily transitioned to room air. She is alert and oriented. I did give the patient a total of 1.5 L normal saline bolus, which initially improved the patient's blood pressure. Approximately 1 L hour later she did become hypotensive again. I was leery to give additional fluid boluses due to the patient's reduced ejection fraction and possible heart failure exacerbation. The patient was transferred to the intensive care unit for norepinephrine infusion. Possible tentative heart catheterization planned for today per cardiology note. The patient is seen today 09/09/2022 in follow-up in the intensive care unit. She is currently resting comfortably in bed. Awake and alert in no acute distress. She is maintaining O2 saturations in the 90s on room air. No IV fluids. Lungs sounds are clear. Chest x-ray revealed no acute pulmonary process. White count 4.4. Hemoglobin 10.7. Platelets 166. Sodium 132. Potassium 4.4. Bicarb 24. BUN 20. Creatinine 0.46. Glucose 130. Plan is for possible cardiac catheterization today. The patient is seen today 09/10/2022 in follow-up in the intensive care unit. She is currently resting comfortably in bed. Awake and alert in no acute distress. She did undergo cardiac catheterization yesterday that revealed severe triple-vessel coronary artery disease. The plan is for return at a later date for coronary artery bypass surgery. Carotid Dopplers revealed no evidence of hemodynamically significant stenosis she denies any chest pain, shortness of breath, palpitations. She is maintaining good O2 saturations in the 90s on room air. Afebrile. Hemodynamically stable. Weight count 7.0. Hemoglobin 12.1. Platelets 160. Sodium 1:30. Potassium 4.3. Bicarb 25. BUN 17. Creatinine 0.46. Blood glucose 100. TSH 0.855. She remains on heparin for DVT prophylaxis. Objective - Vital Signs Vital signs: Vital Signs Temp 98.2 F 09/10/22 08:00 Pulse 90 09/10/22 08:00 Resp 20 09/10/22 08:00 BP 143/91 09/10/22 08:00 Pulse Ox 98 09/10/22 08:00 FiO2 Intake & Output 09/09/22 09/10/22 09/10/22 18:59 06:59 18:59 Intake Total 60 645 1220 Output Total 0 800 800 Balance 60 -155 420 Weight 51.8 kg Intake: IV 60 385 20 Invasive Line 1 10 10 20 Sodium Chloride 0.9% 1, 375 000 ml @ 75 mls/hr IV . [id number] [facility] Rx#:[id number] Oral 260 1200 Output: Urine 0 800 800 Other: Voiding Method Toilet Toilet Toilet # Voids 2 # Bowel Movements 1 - Exam GENERAL EXAM: Alert, oriented 3, 67 year-old female, comfortable in no apparent distress. HEAD: Normocephalic and atraumatic EYES: Normal reaction of pupils, equal size. NOSE: Clear with pink turbinates. THROAT: No erythema or exudates. NECK: No masses, no JVD. CHEST: No chest wall deformity. LUNGS: Equal air entry with no wheezes, rhonchi, or focal dullness. On room air CVS: S1 and S2 normal with no audible murmur, regular rhythm. No extra heart sounds ABDOMEN: No hepatosplenomegaly, active bowel sounds, no guarding or rigidity. SPINE: No scoliosis or deformity SKIN: No rashes CENTRAL NERVOUS SYSTEM: No focal deficits, tone is normal in all 4 extremities. EXTREMITIES: There is no peripheral edema, clubbing, or cyanosis. Peripheral pulses 1+ throughout. - Labs CBC & Chem 7: 09/10/22 04:40 09/10/22 04:40 Labs: Abnormal Lab Results - Last 24 Hours (Table) 09/09/22 09/09/22 09/10/22 Range/Units 16:13 19:54 04:40 RBC 3.69 L (3.80-5.40) m/uL Sodium (137-145) mmol/L Creatinine (0.52-1.04) mg/dL Glucose (74-99) mg/dL POC Glucose (mg/dL) 167 H 225 H (70-110) mg/dL 09/10/22 09/10/22 Range/Units 04:40 05:48 RBC (3.80-5.40) m/uL Sodium 130 L (137-145) mmol/L Creatinine 0.46 L (0.52-1.04) mg/dL Glucose 100 H (74-99) mg/dL POC Glucose (mg/dL) 123 H (70-110) mg/dL Assessment and Plan Assessment: Severe triple-vessel coronary artery disease Severe symptomatic hypotension, refractory to fluid resuscitation with a total of 1.5 L normal saline bolus. Patient ultimately required transfer to the intensive care unit for vasopressor support in the form of norepinephrine. She is off pressors and maintaining good blood pressures. Exacerbation of systolic congestive heart failure, chest CTA on arrival showed cardiomegaly with small bilateral pleural effusions and pulmonary vascular congestion. NT proBNP was elevated at 4890. Echocardiogram done this admission shows a reduced ejection fraction of 30-35%. Acute hypoxemic respiratory failure, secondary to above, was initially on 15 L nonrebreather, recovered and currently on room air Diabetes mellitus type 2, [id number] Hypothyroidism Dyslipidemia Chronic lower back pain, managed on outpatient basis with methadone and when necessary Percocets History of seizure disorder Ex-smoker as of March,. Reported approximately 59-51-vtny-year history Plan: The patient was seen and evaluated Labs and medications reviewed Stable and on room air Cleared for discharge from the pulmonary standpoint Follow-up in our office in 1 week Plan to perform full pulmonary function testing She will return for an elective coronary revascularization surgery I have personally seen and examined the patient, performed the documentation and the assessment and plan as written. Number of minutes spent on the visit: 10.
[2022-09-10 11:36] LABS: Glucose,Whole Blood 202 mg/dL (70-110)
[2022-09-10 16:09] LABS: Glucose,Whole Blood 273 mg/dL (70-110)
--- NOTE | 2022-09-10 16:25 | P.PN ---
Subjective Progress Note Date: 09/10/22 67-year-old lady with past medical history significant for hypothyroidism, diabetes mellitus, seizures or present to the ER because of shortness of breath. Patient stated that she was all right yesterday when she woke up in the middle night gasping for air. She denies any chest pain that time. There was no complain of any palpitation. Patient stated the shortness of breath was present on rest as well as exertion. Because of this shortness of breath, patient came to the ER Initial lab work in the ER showed WBC 6.5, hemoglobin 12.7, platelet count 164, sodium 135, potassium 4.3, BUN 12, creatinine 0.44, glucose 160, magnesium 1 Chest x-ray done showed no acute process CTA chest done negative for PE, cardiomegaly with trace bilateral pleural effusion and pulmonary vascular congestion, groundglass airspace opacities in the left upper lobe, mild emphysema EKG done showed no T-wave inversion, left bundle-branch block seen, EKG was reviewed by cardiology, Media Production Operator was not activated Patient admitted to medicine service 09/10/2022 Patient is seen and evaluated in follow-up in the intensive care unit. She is currently resting comfortably in bed. Awake and alert in no acute distress. She did undergo cardiac catheterization yesterday that revealed severe triple-v essel coronary artery disease. The plan is for return at a later date for coronary artery bypass surgery. Carotid Dopplers revealed no evidence of hemodynamically significant stenosis she denies any chest pain, shortness of breath, palpitations. She is maintaining good O2 saturations in the 90s on room air. Afebrile. Hemodynamically stable. Weight count 7.0. Hemoglobin 12.1. Platelets 160. Sodium 1:30. Potassium 4.3. Bicarb 25. BUN 17. Creatinine 0.46. Blood glucose 100. TSH 0.855. She remains on heparin for DVT prophylaxis. Pulmonary service on board and have cleared patient for discharge; cardiology recommending to continue to monitor for another 24 hours Plans for discharge in next 24 hours if remains clinically stable Objective - Vital Signs Vital signs: Vital Signs Temp 98.2 F 09/10/22 08:00 Pulse 90 09/10/22 08:00 Resp 20 09/10/22 08:00 BP 143/91 09/10/22 08:00 Pulse Ox 98 09/10/22 08:00 FiO2 Intake & Output 09/09/22 09/10/22 09/10/22 18:59 06:59 18:59 Intake Total 60 645 1220 Output Total 0 800 800 Balance 60 -155 420 Weight 51.8 kg Intake: IV 60 385 20 Invasive Line 1 10 10 20 Sodium Chloride 0.9% 1, 375 000 ml @ 75 mls/hr IV . [id number] [facility] Rx#:[id number] Oral 260 1200 Output: Urine 0 800 800 Other: Voiding Method Toilet Toilet Toilet # Voids 2 # Bowel Movements 1 - Exam GENERAL: The patient is alert and oriented x3, not in any acute distress. Well developed, well nourished. HEENT: Pupils are round and equally reacting to light. EOMI. No scleral icterus. No conjunctival pallor. Normocephalic, atraumatic. No pharyngeal erythema. No thyromegaly. CARDIOVASCULAR: S1 and S2 present. No murmurs, rubs, or gallops. PULMONARY: Chest is clear to auscultation, no wheezing or crackles. ABDOMEN: Soft, nontender, nondistended, normoactive bowel sounds. No palpable organomegaly. MUSCULOSKELETAL: No joint swelling or deformity. EXTREMITIES: No cyanosis, clubbing, or pedal edema. NEUROLOGICAL: Gross neurological examination did not reveal any focal deficits. SKIN: No rashes. - Labs CBC & Chem 7: 09/10/22 04:40 09/10/22 04:40 Labs: Abnormal Lab Results - Last 24 Hours (Table) 09/09/22 09/09/22 09/09/22 Range/Units 11:15 16:13 19:54 RBC (3.80-5.40) m/uL Sodium (137-145) mmol/L Creatinine (0.52-1.04) mg/dL Glucose (74-99) mg/dL POC Glucose (mg/dL) 279 H 167 H 225 H (70-110) mg/dL 09/10/22 09/10/22 09/10/22 Range/Units 04:40 04:40 05:48 RBC 3.69 L (3.80-5.40) m/uL Sodium 130 L (137-145) mmol/L Creatinine 0.46 L (0.52-1.04) mg/dL Glucose 100 H (74-99) mg/dL POC Glucose (mg/dL) 123 H (70-110) mg/dL Assessment and Plan Assessment: Acute systolic CHF Hypotension Cardiogenic shock Acute hypoxic respiratory failure Hypomagnesemia Hypothyroidism Hyperlipidemia Nrr-wxhfbwi-uoaczsydt diabetes mellitus Monitor vital signs Monitor CBC Monitor CMP Monitor vital signs Continue Levophed, continue to wean it down. Continue IV Lasix HbA1c is 6.5 Continue sliding scale insulin, Continue Synthroid Continue Lipitor 2-D echo showed LVEF of 30-35%, small pericardial effusion, thickened pericardium Follow-up on cardiology recommendations, plan to do cardiac cath, nothing by mouth for now Critical care consulted for hypotension
[2022-09-10 20:20] LABS: Glucose,Whole Blood 172 mg/dL (70-110)
[2022-09-10] MEDS: ATORVASTATIN 40 MG TAB PO SCH (21:11)
[2022-09-10] MEDS: SODIUM CHLORIDE 0.9% 1,000 ML IV SCH (23:29)
[2022-09-11] MEDS: oxyCODONE-APAP 10-325MG 1 EACH TAB PO PRN ×2 (04:30→10:14)
[2022-09-11 04:32] VITALS: BP 115/74; RESP 16
[2022-09-11 06:07] LABS: Glucose,Whole Blood 150 mg/dL (70-110)
[2022-09-11] MEDS: INSULIN ASPART (NovoLOG) 100 UNIT/ML VIAL SQ SCH (07:07)
--- NOTE | 2022-09-11 08:16 | P.PN ---
Subjective Progress Note Date: 09/11/22 Principal diagnosis: Cardiomyopathy The patient is a pleasant 67-year-old known patient was admitted to the hospital with heart failure and subsequently she underwent an echo and that showed cardiomyopathy. Her cardiac enzymes remained within normal limits. Hypotension and for that reason she was transferred to the intensive care unit where she received norepinephrine. Beside the echo she underwent an EKG which showed sinus mechanism was LBBB with normal cardiac enzymes. We advised the patient to undergo a heart catheterization. September 092022 She was seen and evaluated this morning. She reports no pain in the chest. The shortness of breath has improved. No dizziness or lightheadedness. She has been maintaining normal sinus mechanism with marginally low blood pressure. The plan is to proceed was coronary angiogram later on today. The procedure in details was explained to the patient. The coronary angiogram is to rule out severe coronary artery disease as an etiology for the cardiomyopathy. September 102022 The patient was seen and evaluated this morning that she is asymptomatic and she is a metallic staple beside being slightly tachycardic. Currently she is on aspirin and statin and she is on metoprolol. I'm going to increase the dose of metoprolol and add small dose of AMANUEL inhibitor was lisinopril. The heart catheterization revealed severe triple vessel coronary artery disease and she was seen by the cardiac surgical team and the plan is to pursue coronary artery that is grafting as an outpatient in the next few days. September 112022 The patient was seen and evaluated this morning beach she is asymptomatic and hemodynamically stable. She is on maximize medical treatment consistent of aspirin and statin and beta luis and AMANUEL inhibitor. From the cardiovascular standpoint, the patient is a stable. The examination is remarkable for marginally low blood pressure with clear breathing sounds bilaterally and regular rate and rhythm and no lower extremity edema noted. Assessment Severe triple-vessel CAD Cardiomyopathy of unknown etiology Hypotension requiring norepinephrine which has improved LBBB Plan Continue the current medical regimen Follow-up with the patient Objective - Vital Signs Vital signs: Vital Signs Temp 98.4 F 09/11/22 04:00 Pulse 62 09/11/22 04:00 Resp 16 09/11/22 04:00 BP 115/74 09/11/22 04:00 Pulse Ox 96 09/11/22 04:00 FiO2 Intake & Output 09/10/22 09/11/22 09/11/22 18:59 06:59 18:59 Intake Total 2089 Output Total 800 0 Balance 1290 0 Weight 51.2 kg Intake: IV 30 Invasive Line 1 20 Invasive Line 3 10 Oral 2059 Output: Urine 800 0 Other: Voiding Method Toilet Toilet Diaper Diaper Incontinent Incontinent # Voids 1 0 # Bowel Movements 2 - Labs CBC & Chem 7: 09/10/22 04:40 09/10/22 04:40 Labs: Abnormal Lab Results - Last 24 Hours (Table) 09/10/22 09/10/22 09/10/22 Range/Units 11:35 16:08 20:18 POC Glucose (mg/dL) 202 H 273 H 172 H (70-110) mg/dL 09/11/22 Range/Units 06:05 POC Glucose (mg/dL) 150 H (70-110) mg/dL
[2022-09-11] MEDS: HEPARIN SODIUM,PORCINE/PF 5,000 UNIT/0.5 ML SYRINGE SQ SCH (08:27)
[2022-09-11] MEDS: PANTOPRAZOLE 40 MG/10 ML VIAL IV SCH (08:27)
[2022-09-11] MEDS: GABAPENTIN 400 MG CAP PO SCH (08:27)
[2022-09-11] MEDS: LIDOCAINE 5% PATCH TOPICAL SCH (08:27)
[2022-09-11] MEDS: DULoxetine HCL 60 MG CAPSULE.DR PO SCH (08:28)
[2022-09-11] MEDS: METOPROLOL TARTRATE 50 MG TAB PO SCH (08:28)
[2022-09-11] MEDS: levETIRAcetam 500 MG TAB PO SCH (08:28)
[2022-09-11] MEDS: MONTELUKAST 10 MG TAB PO SCH (08:28)
[2022-09-11] MEDS: ASPIRIN 81 MG PO SCH (08:28)
[2022-09-11] MEDS: LEVOTHYROXINE 50 MCG TAB PO SCH (08:28)
[2022-09-11 09:33] VITALS: PULSE 66; TEMP 97.8
--- NOTE | 2022-09-11 10:45 | P.PN ---
Subjective Progress Note Date: 09/11/22 I am seeing this patient in new consultation today 09/08/2022 after a rapid response was called overhead for hypotension. The patient is a 67-year-old female with past medical history significant for diabetes mellitus type 2, hypothyroidism, hypertension, osteoarthritis, chronic lower back pain, and rece nt ex-smoker as of March,. Patient originally presented to the emergency room on September 05 with a chief complaint of acute shortness of breath that started over the weekend. She does state that her shortness breath is worse on exertion, often accompanied by chest pain and diaphoresis which subside with rest. Denies any heart palpitations, syncope, lower extremity swelling, orthopnea, PND. Denies any history of pulmonary diseases including asthma or COPD. She denies any fevers, chills, cough, wheezing, hemoptysis. Chest x-ray on arrival showed no acute cardiopulmonary process. Negative for influenza, RSV, COVID-19. Follow-up chest CTA was negative for pulmonary embolism. It did show cardiomegaly with trace bilateral pleural effusions and mild pulmonary vascular congestion. Patient was started on Lasix 40 mg daily. A transthoracic echocardiogram showed a reduced ejection fraction of 30-35%. Earlier this morning, the patient was on the cardiac stepdown unit, and was found to have symptomatic hypotension. Apparently, the patient was minimally responsive, with a blood pressure of 50/30 mmHg. She was given a one-time dose of Narcan. The patient did receive a p.m. dose of methadone, Percocet, and trazodone late last night. A rapid response was initiated. The patient was placed on a 15 L nonrebreather, however, she is oxygenating at 100%. She is currently sitting up in bed, in no acute distress, and was easily transitioned to room air. She is alert and oriented. I did give the patient a total of 1.5 L normal saline bolus, which initially improved the patient's blood pressure. Approximately 1 L hour later she did become hypotensive again. I was leery to give additional fluid boluses due to the patient's reduced ejection fraction and possible heart failure exacerbation. The patient was transferred to the intensive care unit for norepinephrine infusion. Possible tentative heart catheterization planned for today per cardiology note. The patient is seen today 09/09/2022 in follow-up in the intensive care unit. She is currently resting comfortably in bed. Awake and alert in no acute distress. She is maintaining O2 saturations in the 90s on room air. No IV fluids. Lungs sounds are clear. Chest x-ray revealed no acute pulmonary process. White count 4.4. Hemoglobin 10.7. Platelets 166. Sodium 132. Potassium 4.4. Bicarb 24. BUN 20. Creatinine 0.46. Glucose 130. Plan is for possible cardiac catheterization today. The patient is seen today 09/10/2022 in follow-up in the intensive care unit. She is currently resting comfortably in bed. Awake and alert in no acute distress. She did undergo cardiac catheterization yesterday that revealed severe triple-vessel coronary artery disease. The plan is for return at a later date for coronary artery bypass surgery. Carotid Dopplers revealed no evidence of hemodynamically significant stenosis she denies any chest pain, shortness of breath, palpitations. She is maintaining good O2 saturations in the 90s on room air. Afebrile. Hemodynamically stable. Weight count 7.0. Hemoglobin 12.1. Platelets 160. Sodium 1:30. Potassium 4.3. Bicarb 25. BUN 17. Creatinine 0.46. Blood glucose 100. TSH 0.855. She remains on heparin for DVT prophylaxis. The patient is seen today 09/11/2022 in follow-up in the intensive care unit. She is at regular medical floor overflow. She is sitting up in bed. Awake and alert in no acute distress. No chest pain or palpitations. Maintaining good O2 saturations in the 90s on room air. Blood glucose 150. Heparin for DVT prophylaxis. Objective - Vital Signs Vital signs: Vital Signs Temp 97.8 F 09/11/22 08:00 Pulse 66 09/11/22 08:00 Resp 16 09/11/22 08:00 BP 115/74 09/11/22 04:00 Pulse Ox 96 09/11/22 08:00 FiO2 Intake & Output 09/10/22 09/11/22 09/11/22 18:59 06:59 18:59 Intake Total 2089 Output Total 800 0 Balance 1290 0 Weight 51.2 kg Intake: IV 30 Invasive Line 1 20 Invasive Line 3 10 Oral 2059 Output: Urine 800 0 Other: Voiding Method Toilet Toilet Toilet Diaper Diaper Diaper Incontinent Incontinent Incontinent # Voids 1 0 # Bowel Movements 2 2 - Exam GENERAL EXAM: Alert, 67 year-old female, on room air, comfortable in no apparent distress. HEAD: Normocephalic and atraumatic EYES: Normal reaction of pupils, equal size. NOSE: Clear with pink turbinates. THROAT: No erythema or exudates. NECK: No masses, no JVD. CHEST: No chest wall deformity. LUNGS: Equal air entry with no wheezes, rhonchi, or focal dullness. CVS: S1 and S2 normal with no audible murmur, regular rhythm. No extra heart sounds ABDOMEN: No hepatosplenomegaly, active bowel sounds, no guarding or rigidity. SPINE: No scoliosis or deformity SKIN: No rashes CENTRAL NERVOUS SYSTEM: No focal deficits, tone is normal in all 4 extremities. EXTREMITIES: There is no peripheral edema, clubbing, or cyanosis. Peripheral pulses 1+ throughout. - Labs CBC & Chem 7: 09/10/22 04:40 09/10/22 04:40 Labs: Abnormal Lab Results - Last 24 Hours (Table) 09/10/22 09/10/22 09/10/22 Range/Units 11:35 16:08 20:18 POC Glucose (mg/dL) 202 H 273 H 172 H (70-110) mg/dL 09/11/22 Range/Units 06:05 POC Glucose (mg/dL) 150 H (70-110) mg/dL Microbiology - Last 24 Hours (Table) 09/09/22 17:05 Nasal Screen MRSA/MSSA - Final Nasopharyngeal Swab Assessment and Plan Assessment: Severe triple-vessel coronary artery disease Severe symptomatic hypotension, refractory to fluid resuscitation with a total of 1.5 L normal saline bolus. Patient ultimately required transfer to the in tensive care unit for vasopressor support in the form of norepinephrine. She is off pressors and maintaining good blood pressures. Exacerbation of systolic congestive heart failure, chest CTA on arrival showed cardiomegaly with small bilateral pleural effusions and pulmonary vascular congestion. NT proBNP was elevated at 4890. Echocardiogram done this admission shows a reduced ejection fraction of 30-35%. Acute hypoxemic respiratory failure, secondary to above, was initially on 15 L nonrebreather, recovered and currently on room air Diabetes mellitus type 2, [id number] Hypothyroidism Dyslipidemia Chronic lower back pain, managed on outpatient basis with methadone and when necessary Percocets History of seizure disorder Ex-smoker as of March,. Reported approximately 02-81-ibmi-year history Plan: The patient was seen and evaluated Medications reviewed Stable and on room air Cleared for discharge once cleared by cardiology Follow-up in our office in 1 week Plan to perform full pulmonary function testing Plan is to return for an elective coronary revascularization surgery I have personally seen and examined the patient, performed the documentation and the assessment and plan as written. Number of minutes spent on the visit: 10.
== END 2022-09-11 11:35 | disposition home or self-care (01) | DRG 286 ==
LOC: EC 16:46 → 3SCARD 21:34 → 2SICU 09-08 02:46
PROVIDERS: ADMIT Hospitalist; ATTEND Hospitalist
PROC: 3E033XZ Introduction of Vasopressor into Peripheral Vein, Percutaneous Approach (ICD-10-PCS; 2022-09-09)
PROC: 4A023N7 Measurement of Cardiac Sampling and Pressure, Left Heart, Percutaneous Approach (ICD-10-PCS; principal; 2022-09-09 15:50)
PROC: B2111ZZ Fluoroscopy of Multiple Coronary Arteries using Low Osmolar Contrast (ICD-10-PCS; 2022-09-09 15:50)
DX: I11.0 Hypertensive heart disease with heart failure (principal); I50.23 Acute on chronic systolic (congestive) heart failure; J96.01 Acute respiratory failure with hypoxia; R57.0 Cardiogenic shock; I31.39 Other pericardial effusion (noninflammatory); I25.10 Atherosclerotic heart disease of native coronary artery without angina pectoris; G89.29 Other chronic pain; I95.9 Hypotension, unspecified; I42.9 Cardiomyopathy, unspecified; I44.7 Left bundle-branch block, unspecified; J43.9 Emphysema, unspecified; R73.9 Hyperglycemia, unspecified; G40.909 Epilepsy, unspecified, not intractable, without status epilepticus; Z20.822 Contact with and (suspected) exposure to COVID-19; F32.A Depression, unspecified; F11.90 Opioid use, unspecified, uncomplicated; E83.42 Hypomagnesemia; E78.5 Hyperlipidemia, unspecified; E03.9 Hypothyroidism, unspecified; Z79.82 Long term (current) use of aspirin; Z79.84 Long term (current) use of oral hypoglycemic drugs; Z79.890 Hormone replacement therapy; Z79.899 Other long term (current) drug therapy; Z87.891 Personal history of nicotine dependence; Z88.8 Allergy status to other drugs, medicaments and biological substances
CPT/HCPCS: 36415; 71045; 71275; 76937; 80048; 80053; 80061; 80074; 81003; 83036; 83605; 83690; 83735; 83880; 84443; 84484; 85025; 85379; 85610; 85730; 87070; 87636; 93005; 93306; 93458; 93880; 93970; 96365; 96366; 96375; 99291

== ENCOUNTER → 2022-10-19 | Outpatient (CLI) | payer MEDICARE, OTHER ==
[2022-10-19 10:31] LABS: Partial Thromboplastin Time 23.6 sec (22.0-30.0); Prothrombin Time 10.6 sec (9.0-12.0)
[2022-10-19 15:01] LABS: ALT 38 U/L (8-44); AST 91 U/L (13-35); Albumin 4.3 d/dL (3.8-4.9); Albumin/Globulin Ratio 1.95 Ratio (1.60-3.17); Alkaline Phosphatase 77 U/L (41-126); BUN/Creat Ratio 14.29 Ratio (12.00-20.00); Carbon Dioxide 26.2 mmol/L (21.6-31.8); Chloride 96 mmol/L (96-109); Globulin 2.2 d/dL (1.6-3.3); Glucose 157 mg/dL (70-110); Magnesium 1.2 mg/dL (1.5-2.4); Potassium 4.5 mmol/L (3.5-5.5); Sodium 136 mmol/L (135-145); Total Bilirubin 0.7 mg/dL (0.3-1.2); Total Protein 6.5 d/dL (6.2-8.2)
[2022-10-19 15:02] LABS: HCT 35.6 % (37.2-46.3); MCH 32.2 pg (27.0-32.0); MCHC 33.7 d/dL (32.0-37.0); MCV 95.4 FL (80.0-97.0); Mean Platelet Volume 11.6 FL (9.5-12.2); NRBC Per 100 WBC 0 X 10*3/uL (0.00-0.01); Platelet Count 170 X 10*3/uL (140-440); RBC 3.73 X 10*6/uL (4.10-5.20); WBC 7.67 X 10*3/uL (4.50-10.00)
== END | disposition home or self-care (01) ==
LOC: LABWHC1 09:25
PROVIDERS: ATTEND Surgery
DX: I25.10 Atherosclerotic heart disease of native coronary artery without angina pectoris (principal)
CPT/HCPCS: 36415; 80053; 83735; 85027; 85610; 85730

== ENCOUNTER 2023-01-25 12:07 | Inpatient (IN) | payer MEDICARE, OTHER ==
--- NOTE | 2023-01-25 13:26 | ED ---
Fall HPI - General Chief Complaint: Fall Stated Complaint: FALL Time Seen by Provider: 01/25/23 12:40 Source: EMS Mode of arrival: EMS - History of Present Illness Initial Comments: 68-year-old female with a past medical history significant for coronary artery disease status post CABG 4 presenting to the ED with a chief complaint of fall. Per patient over the last 3 days has had headache, congestion, cough, generalized weakness. This morning, reports that she felt generally weak and slid to the ground and reports that she possibly hit her head. No LOC. Denies any other injury at this time. Per daughter, also notes patient has difficulties with generalized weakness and notes that she is on many drugs that make her drowsy. Patient denies chest pain or shortness of breath. No other complaints. - Related Data Home Medications Medication Instructions Recorded Confirmed Gabapentin 800 mg PO TID 10/27/16 11/01/22 DULoxetine HCL [Cymbalta] 120 mg PO DAILY 08/02/18 11/01/22 levETIRAcetam [Keppra] 1,000 mg PO BID 08/02/18 11/01/22 traZODone HCL 200 mg PO HS 08/02/18 11/01/22 Levothyroxine Sodium [Synthroid] 50 mcg PO DAILY 09/05/22 11/01/22 Methadone [Dolophine] 10 mg PO TID 09/05/22 11/01/22 Montelukast [Singulair] 10 mg PO DAILY 09/05/22 11/01/22 busPIRone HCL 5 mg PO BID 10/20/22 11/01/22 Previous Rx's Medication Instructions Recorded Aspirin 81 mg PO DAILY tab 09/10/22 Atorvastatin [Lipitor] 40 mg PO HS 30 Days #30 tab 09/10/22 lisinopriL [Zestril] 2.5 mg PO DAILY 30 Days #30 tab 09/10/22 Acetaminophen Tab [Tylenol] 650 mg PO Q6HR PRN tab 11/10/22 Ascorbic Acid [Vitamin C] 500 mg PO BID tab 11/10/22 Clopidogrel [Plavix] 75 mg PO DAILY tab 11/10/22 Dapagliflozin Propanediol [Farxiga] 10 mg PO DAILY tab 11/10/22 Ferrous Sulfate [Iron (65 MG 325 mg PO BID-W/MEALS tab 11/10/22 Elemental)] Fondaparinux [Arixtra] 2.5 mg SQ DAILY each 11/10/22 INSULIN ASPART (NovoLOG) [NovoLOG 0 unit SQ ACHS each 11/10/22 (formulary)] Insulin Detemir (Levemir) [Levemir] 5 unit SQ HS each 11/10/22 Ipratropium-Albuterol Nebulize 3 ml INHALATION RT-Q2H PRN each 11/10/22 [Duoneb 0.5 mg-3 mg/3 ml Soln] Ipratropium-Albuterol Nebulize 3 ml INHALATION RT-QID each 11/10/22 [Duoneb 0.5 mg-3 mg/3 ml Soln] Magnesium Hydroxide [Milk of 2,400 mg PO BID PRN ml 11/10/22 Magnesia] Magnesium Oxide [Mag-Ox] 400 mg PO BID tab 11/10/22 Metoprolol Tartrate [Lopressor] 12.5 mg PO BID tab 11/10/22 Pantoprazole [Protonix] 40 mg PO AC-BRKFST tab 11/10/22 Sennosides-Docusate Sodium 2 each PO HS tab 11/10/22 [Senokot-S] Spironolactone [Aldactone] 25 mg PO DAILY@1200 tab 11/10/22 bisacodyL [Dulcolax] 10 mg RECTAL DAILY PRN suppositor 11/10/22 Allergies Allergy/AdvReac Type Severity Reaction Status Date / Time cephalexin monohydrate Allergy Rash/Hives Verified 01/25/23 12:12 [From Keflex] Cephalosporins Allergy Rash/Hives Verified 01/25/23 12:12 clarithromycin [From Biaxin] Allergy Rash/Hives Verified 01/25/23 12:12 NSAIDS (Non-Steroidal Allergy rash, Verified 01/25/23 12:12 Anti-Inflamma nausea adhesive tape AdvReac blisters Verified 01/25/23 12:12 skin Review of Systems ROS Statement: Those systems with pertinent positive or pertinent negative responses have been documented in the HPI. ROS Other: All systems not noted in ROS Statement are negative. Past Medical History Past Medical History: Coronary Artery Disease (CAD), Diabetes Mellitus, Hyperlipidemia, Hypertension, Osteoarthritis (OA), Thyroid Disorder Additional Past Medical History / Comment(s): chronic pain History of Any Multi-Drug Resistant Organisms: None Reported Past Surgical History: Orthopedic Surgery, Tonsillectomy, Tubal Ligation Additional Past Surgical History / Comment(s): cataracts; 2 right leg surgeries including plate for her knee Past Anesthesia/Blood Transfusion Reactions: No Reported Reaction Past Psychological History: Depression Smoking Status: Former smoker - Past Family History Brother(s) Family Medical History: Coronary Artery Disease (CAD) Additional Family Medical History / Comment(s): quad bypass General Exam General appearance: alert, in no apparent distress Eye exam: Present: other (No higuera sign or raccoon's eyes.) Neck exam: Present: normal inspection Respiratory exam: Present: wheezes (Bilaterally.) Cardiovascular Exam: Present: regular rate, normal rhythm GI/Abdominal exam: Present: soft Extremities exam: Present: normal inspection Back exam: Present: normal inspection Neurological exam: Present: alert Skin exam: Present: warm, dry Course Vital Signs 01/25/23 01/25/23 01/25/23 12:09 12:13 16:48 Temperature 99.1 F Pulse Rate 62 80 Respiratory 16 18 Rate Blood Pressure 118/77 139/80 O2 Sat by Pulse 93 L 99 Oximetry Medical Decision Making - Medical Decision Making Was pt. sent in by a medical professional or institution (, PA, HOOKMAN, urgent care, hospital, or intermediate...) When possible be specific @ -No Did you speak to anyone other than the patient for history (EMS, parent, family, police, friend...)? What history was obtained from this source @ -Spoke to the patient's daughter who provided some additional history. For further details please see HPI. Did you review nursing and triage notes (agree or disagree)? Why? @ -I reviewed and agree with nursing and triage notes Were old charts reviewed (outside hosp., previous admission, EMS record, old EKG, old radiological studies, urgent care reports/EKG's, intermediate records)? Report findings @ -No old charts were reviewed Differential Diagnosis (chest pain, altered mental status, abdominal pain women, abdominal pain men, vaginal bleeding, weakness, fever, dyspnea, syncope, headache, dizziness, GI bleed, back pain, seizure, CVA, palpatations, mental health, musculoskeletal)? @ -Acute fracture, acute hemorrhage. This is not meant to be an all-inclusive list. EKG interpreted by me (3pts min.). @ -As above X-rays interpreted by me (1pt min.). @ -Chest x-ray interpreted by me showing no evidence of pneumonia. CT interpreted by me (1pt min.). @ -CT brain and C-spine interpreted by me showed no evidence of fracture, acute hemorrhage, or other acute finding. U/S interpreted by me (1pt. min.). @ -None done What testing was considered but not performed or refused? (CT, X-rays, U/S, labs)? Why? @ -None What meds were considered but not given or refused? Why? @ -None Did you discuss the management of the patient with other professionals (professionals i.e. , PA, HOOKMAN, lab, RT, psych nurse, social worker psychiatric, spring former machine, teacher, operations officer trust department, immigration case worker)? Give summary @ -Case discussed with Az[facility]om[facility], who accepts admission. Was smoking cessation discussed for >3mins.? @ -No Was critical care preformed (if so, how long)? @ -No Were there social determinants of health that impacted care today? How? (Homelessness, low income, unemployed, alcoholism, drug addiction, transportation, low edu. Level, literacy, decrease access to med. care, nursing home, rehab)? @ -No Was there de-escalation of care discussed even if they declined (Discuss DNR or withdrawal of care, Hospice)? DNR status @ -No What co-morbidities impacted this encounter? (DM, HTN, Smoking, COPD, CAD, Cancer, CVA, ARF, Chemo, Hep., AIDS, mental health diagnosis, sleep apnea, morbid obesity)? @ -None Was patient admitted / discharged? Hospital course, mention meds given and route, prescriptions, significant lab abnormalities, going to OR and other pertinent info. @ -Admission 68-year-old female presenting to the ED with complaints of generalized weakness over the last few days and slip and fall secondary to generalized weakness today. CT brain and C-spine showed no evidence of hemorrhage, fracture, or other acute finding. The board [place] studies did show hyponatremia at 129. Patient is also COVID positive. The only member also notes concern with her medications possibly causing increased sedation. Concern if patient is discharged home today due to generalized weakness will go home and fall and ended up in the ER again. Therefore, patient will be admitted with consults to PT/OT and social work for possible placement. Discussed plan of care the patient's family who are in agreement. Undiagnosed new problem with uncertain prognosis? @ -No Drug Therapy requiring intensive monitoring for toxicity (Heparin, Nitro, Insulin, Cardizem)? @ -No Were any procedures done? @ -No Diagnosis/symptom? @ -Fall, hyponatremia Acute, or Chronic, or Acute on Chronic? @ -Acute Uncomplicated (without systemic symptoms) or Complicated (systemic symptoms)? @ -Uncomplicated Side effects of treatment? @ -No Exacerbation, Progression, or Severe Exacerbation? @ -No Poses a threat to life or bodily function? How? (Chest pain, [place], [place], pneumonia, PE, COPD, DKA, ARF, appy, cholecystitis, CVA, Diverticulitis, Homicidal, Suicida l, threat to staff... and all critical care pts) @ -No - Lab Data Result diagrams: 01/25/23 14:21 01/25/23 14:21 Lab Results 01/25/23 01/25/23 01/25/23 Range/Units 14:21 14:21 14:21 WBC 6.2 (3.8-10.6) k/uL RBC 4.00 (3.80-5.40) m/uL Hgb 12.7 (11.4-16.0) gm/dL Hct 36.4 (34.0-46.0) % MCV 91.1 (80.0-100.0) fL MCH 31.9 (25.0-35.0) pg MCHC 35.0 (31.0-37.0) g/dL RDW 13.2 (11.5-15.5) % Plt Count 131 L (150-450) k/uL MPV 7.8 Neutrophils % 85 % Lymphocytes % 9 % Monocytes % 3 % Eosinophils % 2 % Basophils % 0 % Neutrophils # 5.3 (1.3-7.7) k/uL Lymphocytes # 0.6 L (1.0-4.8) k/uL Monocytes # 0.2 (0-1.0) k/uL Eosinophils # 0.1 (0-0.7) k/uL Basophils # 0.0 (0-0.2) k/uL PT 10.7 (10.0-12.5) sec INR 1.0 (<1.2) APTT 27.5 (22.0-30.0) sec Sodium (137-145) mmol/L Potassium (3.5-5.1) mmol/L Chloride (98-107) mmol/L Carbon Dioxide (22-30) mmol/L Anion Gap mmol/L BUN (7-17) mg/dL Creatinine (0.52-1.04) mg/dL Est GFR (CKD-EPI)AfAm (>60 ml/min/1.73 sqM) Est GFR (CKD-EPI)NonAf (>60 ml/min/1.73 sqM) Glucose (74-99) mg/dL Calcium (8.4-10.2) mg/dL Total Bilirubin (0.2-1.3) mg/dL AST (14-36) U/L ALT (4-34) U/L Alkaline Phosphatase (38-126) U/L Total Protein (6.3-8.2) g/dL Albumin (3.5-5.0) g/dL Influenza Type A (PCR) Not Detected (Not Detectd) Influenza Type B (PCR) Not Detected (Not Detectd) RSV (PCR) Not Detected (Not Detectd) SARS-CoV-2 (PCR) Detected A (Not Detectd) 01/25/23 Range/Units 14:21 WBC (3.8-10.6) k/uL RBC (3.80-5.40) m/uL Hgb (11.4-16.0) gm/dL Hct (34.0-46.0) % MCV (80.0-100.0) fL MCH (25.0-35.0) pg MCHC (31.0-37.0) g/dL RDW (11.5-15.5) % Plt Count (150-450) k/uL MPV Neutrophils % % Lymphocytes % % Monocytes % % Eosinophils % % Basophils % % Neutrophils # (1.3-7.7) k/uL Lymphocytes # (1.0-4.8) k/uL Monocytes # (0-1.0) k/uL Eosinophils # (0-0.7) k/uL Basophils # (0-0.2) k/uL PT (10.0-12.5) sec INR (<1.2) APTT (22.0-30.0) sec Sodium 129 L (137-145) mmol/L Potassium 4.0 (3.5-5.1) mmol/L Chloride 90 L (98-107) mmol/L Carbon Dioxide 30 (22-30) mmol/L Anion Gap 9 mmol/L BUN 10 (7-17) mg/dL Creatinine 0.43 L (0.52-1.04) mg/dL Est GFR (CKD-EPI)AfAm >90 (>60 ml/min/1.73 sqM) Est GFR (CKD-EPI)NonAf >90 (>60 ml/min/1.73 sqM) Glucose 134 H (74-99) mg/dL Calcium 9.1 (8.4-10.2) mg/dL Total Bilirubin 0.6 (0.2-1.3) mg/dL AST 72 H (14-36) U/L ALT 26 (4-34) U/L Alkaline Phosphatase 66 (38-126) U/L Total Protein 6.7 (6.3-8.2) g/dL Albumin 4.0 (3.5-5.0) g/dL Influenza Type A (PCR) (Not Detectd) Influenza Type B (PCR) (Not Detectd) RSV (PCR) (Not Detectd) SARS-CoV-2 (PCR) (Not Detectd) Disposition Clinical Impression: Generalized weakness, COVID-19 Disposition: ADMITTED IP TO THIS [facility] Condition: Good Referrals: Huyen Cheng DO [Primary Care Provider] - 1-2 days Time of Disposition: 17:20
--- NOTE | 2023-01-25 14:30 | XR ---
EXAMINATION TYPE: XR chest 2V DATE OF EXAM: 01/25/2023 1:59 PM CLINICAL INDICATION:Female, 68 years old with history of r/o PNA; COMPARISON: Chest radiographs from 08/30/2022 TECHNIQUE: XR chest 2V Frontal and lateral views of the chest. FINDINGS: Lungs/Pleura: There is no evidence of pleural effusion, focal consolidation, or pneumothorax. Pulmonary vascularity: Unremarkable. Heart/mediastinum: Cardiomediastinal silhouette is unremarkable. Musculoskeletal: Degenerative changes of the shoulder joints. Midline sternotomy wires are noted. IMPRESSION: No acute cardiopulmonary disease/process.
[2023-01-25 14:33] LABS: Basophils % (A) 0 %; Eosinophils # (A) 0.1 k/uL (0-0.7); Eosinophils % (A) 2 %; HCT 36.4 % (34.0-46.0); HGB 12.7 gm/dL (11.4-16.0); Lymphocytes # (A) 0.6 k/uL (1.0-4.8); Lymphocytes % (A) 9 %; MCH 31.9 pg (25.0-35.0); MCV 91.1 fL (80.0-100.0); Mean Platelet Volume 7.8; Monocytes # (A) 0.2 k/uL (0-1.0); Monocytes % (A) 3 %; Neutrophils # (A) 5.3 k/uL (1.3-7.7); Neutrophils % (A) 85 %; Platelet Count 131 k/uL (150-450); RDW 13.2 % (11.5-15.5); WBC 6.2 k/uL (3.8-10.6)
[2023-01-25 14:42] LABS: Partial Thromboplastin Time 27.5 sec (22.0-30.0); Prothrombin Time 10.7 sec (10.0-12.5)
[2023-01-25 14:43] LABS: ALT 26 U/L (4-34); AST 72 U/L (14-36); African American GFR (CKD) >90 (>60 ml/min/1.73 sqM); Alkaline Phosphatase 66 U/L (38-126); Anion Gap 9 mmol/L; Blood Urea Nitrogen 10 mg/dL (7-17); Calcium 9.1 mg/dL (8.4-10.2); Carbon Dioxide 30 mmol/L (22-30); Chloride 90 mmol/L (98-107); Glucose 134 mg/dL (74-99); Non-African American GFR(CKD) >90 (>60 ml/min/1.73 sqM); Sodium 129 mmol/L (137-145); Total Bilirubin 0.6 mg/dL (0.2-1.3); Total Protein 6.7 g/dL (6.3-8.2)
--- NOTE | 2023-01-25 15:09 | CT ---
EXAMINATION TYPE: CT brain cspine wo con DATE OF EXAM: 01/25/2023 COMPARISON: CT chest 09/05/2022 HISTORY: 68-year-old female pain after head injury, Fall on thinners CT DLP: 1280.7 mGycm Automated exposure control for dose reduction was used. Technique: Examination of the head was done in axial plane without intravenous contrast. Coronal and sagittal reconstructions performed. CT of the cervical spine was obtained in axial plane without intravenous injection of contrast mater ial. Coronal and sagittal reformatted images were obtained from the axial views for evaluation of f ractures, spinal alignment and canal. FINDINGS: Head: There is no evidence of acute intracranial hemorrhage, acute ischemic changes, mass, mass-effect, or extra-axial fluid collection. There is no effacement of cerebral sulci or basal subarachnoid cister ns. There is no hydrocephalus. There is no midline shift. Delgado-white matter distinction is preserv ed. There is mild generalized supratentorial volume loss. Mild atherosclerotic calcifications in the eldridge tid siphons. Evidence of prior FESS. Residual mild mucosal thickening throughout the ethmoid air cells. Mastoid ai r cells well pneumatized. Orbital globes are intact. Cervical spine: Extensive interstitial changes within the visualized upper lungs of unknown chronicity though largely new from 09/05/2022 CT. No precervical junction abnormality, predental space widening, or prevertebral soft tissue swelling. Bony ankylosis across the posterior elements C3-C4. Degenerative grade 1 anterolisthesis C2-C3. Degen erative grade 1 retrolisthesis C5-C6. Moderate spondylotic change C5-C6. Disc osteophyte complex at t his level contributes to mild spinal canal narrowing. Moderate bilateral neuroforaminal stenosis at t his level. No acute fracture of the cervical spine. Sagittal and coronal reformatted images confirm above findings. COMBINED IMPRESSION: 1. Mild generalized atrophy. No acute intracranial abnormality seen. 2. No acute fracture of the cervical spine. Moderate spinal lytic changes especially C5-C6 where ther e is mild spinal canal stenosis and moderate bilateral neural foraminal stenosis. Degenerative grade 1 spondylolisthesis C2-3 and C5-C6.
[2023-01-25] MEDS ORDERED: ONDANSETRON 4 MG/2 ML VIAL IVP PRN (17:38)
[2023-01-25] MEDS ORDERED: ACETAMINOPHEN TAB 325 MG TAB PO PRN (17:38)
[2023-01-25] MEDS ORDERED: NALOXONE 0.4 MG/ML 1 ML VIAL IV PRN (17:38)
[2023-01-25] MEDS: SODIUM CHLORIDE 0.9% 1,000 ML IV SCH (18:15)
[2023-01-25] MEDS: HYDROmorphone 1 MG/ML 1 ML SYRINGE IVP PRN (20:42)
[2023-01-25 21:12] LABS: Amphetamine Screen,Urine Not Detected (NotDetected); Barbiturate Screen,Urine Not Detected (NotDetected); Benzodiazepines Screen,Urine Not Detected (NotDetected); Cocaine Screen,Urine Not Detected (NotDetected); Methadone Screen, Urine Detected (NotDetected); Opiate Screen,Urine Not Detected (NotDetected); Oxycodone Screen, Urine Detected (NotDetected); Phencyclidine Screen,Urine Not Detected (NotDetected); Tricyclic Antidepressant,Urine Not Detected (NotDetected); Urn Cannabinoid Scrn Not Detected (NotDetected)
[2023-01-26 00:39] LABS: Appearance,Urine Clear (Clear); Bilirubin,Urine Negative (Negative); Blood,Urine Negative (Negative); Color,Urine Light Yellow; Glucose,Urine (UA) Negative (Negative); Ketones,Urine 1+ (Negative); Leukocyte Esterase,Urine Negative (Negative); Nitrite,Urine Negative (Negative); PH, Urine 6.5 (5.0-8.0); Protein,Urine Trace (Negative); Specific Gravity,Urine 1.012 (1.001-1.035); Urobilinogen,Urine <2.0 mg/dL (<2.0)
[2023-01-26] MEDS: HYDROmorphone 1 MG/ML 1 ML SYRINGE IVP PRN ×2 (04:44→08:05)
[2023-01-26] MEDS: SODIUM CHLORIDE 0.9% 1,000 ML IV SCH (08:05)
[2023-01-26] MEDS ORDERED: ALBUTEROL NEBULIZED 2.5 MG/3 ML INHALATION PRN ×2 (08:48→11:40)
[2023-01-26] MEDS ORDERED: DEXTROSE 50% SYRINGE 50 ML IVP PRN ×2 (08:50)
[2023-01-26] MEDS: METHADONE 10 MG TAB PO SCH ×3 (11:06→20:44)
[2023-01-26] MEDS: DULoxetine HCL 60 MG CAPSULE.DR PO SCH (11:06)
[2023-01-26] MEDS: ASPIRIN 81 MG PO SCH (11:06)
[2023-01-26] MEDS: GABAPENTIN 400 MG CAP PO SCH ×3 (11:07→20:44)
[2023-01-26] MEDS: levETIRAcetam 500 MG TAB PO SCH ×2 (11:07→20:44)
[2023-01-26] MEDS: CLOPIDOGREL 75 MG TAB PO SCH (11:07)
[2023-01-26] MEDS: busPIRone HCl 5 MG TAB PO SCH (11:07)
[2023-01-26] MEDS: metFORMIN 500 MG TAB PO SCH ×2 (11:07→20:44)
[2023-01-26] MEDS: METOPROLOL TARTRATE 12.5 MG TAB PO SCH ×2 (11:08→20:44)
[2023-01-26] MEDS: ENOXAPARIN 40 MG/0.4 ML SYRINGE SQ SCH (11:08)
[2023-01-26] MEDS: MONTELUKAST 10 MG TAB PO SCH (11:08)
[2023-01-26] MEDS: LEVOTHYROXINE 50 MCG TAB PO SCH (11:13)
[2023-01-26] MEDS: PANTOPRAZOLE 40 MG TABLET PO SCH (11:13)
--- NOTE | 2023-01-26 11:42 | P.HPIM ---
History of Present Illness H&P Date: 01/26/23 Chief Complaint: Fall * 68-year-old patient with past medical history significant for coronary artery disease status post CABG, hypertension, hyperlipidemia, ischemic cardiomyo clare ejection fraction 20%, diabetes mellitus, chronic pain syndrome on methadone, history of seizure disorder, chronic hyponatremia, hypothyroid, history of rectal prolapse, diabetes mellitus HbA1c 6.5 presents to the emergency department with complains of fatigue, weakness and fall at home. Patient has not been feeling well for the last 3 days with complaints of cough, chest congestion, headache, generalized weakness. Patient states she felt weak and slid to the ground. Workup obtained in ER included comprehensive metabolic panel, CBC * Workup obtained included CBC which were WBC count of 6.2 hemoglobin 12.7 platelet count of 131 * Serum chemistry showed sodium 129 potassium 4 chloride 90 B UN 10 creatinine 0.43 AST of 26 AST 72 * Urine toxin positive for oxycodone and methadone * Patient tested positive for coronavirus. Tested negative for influenza and RSV * Patient admitted to medical floor with consultation to be obtained from physical therapy occupational therapy REVIEW OF SYSTEMS: Generalized weakness, cough, chest condition, fall CONSTITUTIONAL: Generalized weakness, cough, chest condition, fall HEENT: No recent visual problems or hearing problems. Denied any sore throat. CARDIOVASCULAR: No chest pain, orthopnea, PND, no palpitations, no syncope. PULMONARY: Generalized weakness, cough, chest condition, fall GASTROINTESTINAL: No diarrhea, no nausea, no vomiting, no abdominal pain. NEUROLOGICAL: No headaches, no weakness, no numbness. HEMATOLOGICAL: Denies any bleeding or petechiae. GENITOURINARY: Denies any burning micturition, frequency, or urgency. MUSCULOSKELETAL/RHEUMATOLOGICAL: Denies any joint pain, swelling, or any muscle pain. ENDOCRINE: Denies any polyuria or polydipsia. PHYSICAL EXAMINATION: GENERAL: The patient is alert and oriented x3, ill appearance, irritable mood HEENT: Pupils are round and equally reacting to light. EOMI. CARDIOVASCULAR: S1 and S2 present. No murmurs, rubs, or gallops. PULMONARY: Chest is clear to auscultation, no wheezing or crackles. ABDOMEN: Soft, nontender, nondistended, normoactive bowel sounds. No palpable organomegaly. MUSCULOSKELETAL: No joint swelling or deformity. EXTREMITIES: No cyanosis, clubbing, or pedal edema. NEUROLOGICAL: Gross neurological examination did not reveal any focal deficits. SKIN: No rashes. Past Medical History Past Medical History: Coronary Artery Disease (CAD), Diabetes Mellitus, Hyperlipidemia, Hypertension, Osteoarthritis (OA), Thyroid Disorder Additional Past Medical History / Comment(s): chronic pain History of Any Multi-Drug Resistant Organisms: None Reported Past Surgical History: Orthopedic Surgery, Tonsillectomy, Tubal Ligation Additional Past Surgical History / Comment(s): cataracts; 2 right leg surgeries including plate for her knee Past Anesthesia/Blood Transfusion Reactions: No Reported Reaction Past Psychological History: Depression Smoking Status: Former smoker Past Alcohol Use History: None Reported Additional Past Alcohol Use History / Comment(s): quit smoking 2022, smoked on & off 30 yrs., <ppd down to 6 cigs towards end of smoking Past Drug Use History: None Reported Additional Drug Use History / Comment(s): social drinker - Past Family History Brother(s) Family Medical History: Coronary Artery Disease (CAD) Additional Family Medical History / Comment(s): quad bypass Medications and Allergies Home Medications Medication Instructions Recorded Confirmed Type Gabapentin 800 mg PO TID 10/27/16 01/25/23 History DULoxetine HCL [Cymbalta] 120 mg PO DAILY 08/02/18 01/25/23 History levETIRAcetam [Keppra] 1,000 mg PO BID 08/02/18 01/25/23 History traZODone HCL 200 mg PO HS 08/02/18 01/25/23 History Levothyroxine Sodium [Synthroid] 50 mcg PO DAILY 09/05/22 01/25/23 History Methadone [Dolophine] 10 mg PO TID 09/05/22 01/25/23 History Montelukast [Singulair] 10 mg PO DAILY 09/05/22 01/25/23 History Aspirin 81 mg PO DAILY tab 09/10/22 01/25/23 Rx Atorvastatin [Lipitor] 40 mg PO HS 30 Days #30 tab 09/10/22 01/25/23 Rx busPIRone HCL 5 mg PO DAILY 10/20/22 01/25/23 History Acetaminophen Tab [Tylenol] 650 mg PO Q6HR PRN tab 11/10/22 01/25/23 Rx Clopidogrel [Plavix] 75 mg PO DAILY tab 11/10/22 01/25/23 Rx Metoprolol Tartrate [Lopressor] 12.5 mg PO BID tab 11/10/22 01/25/23 Rx Pantoprazole [Protonix] 40 mg PO AC-BRKFST tab 11/10/22 01/25/23 Rx metFORMIN HCL 500 mg PO BID 01/25/23 01/25/23 History oxyCODONE-APAP 10-325MG [Percocet 1 tab PO Q8HR PRN 01/25/23 01/25/23 History 10-325 mg] Allergies Allergy/AdvReac Type Severity Reaction Status Date / Time cephalexin monohydrate Allergy Rash/Hives Verified 01/25/23 12:12 [From Keflex] Cephalosporins Allergy Rash/Hives Verified 01/25/23 12:12 clarithromycin [From Biaxin] Allergy Rash/Hives Verified 01/25/23 12:12 NSAIDS (Non-Steroidal Allergy rash, Verified 01/25/23 12:12 Anti-Inflamma nausea adhesive tape AdvReac blisters Verified 01/25/23 12:12 skin Physical Exam Vitals: Vital Signs Temp Pulse Pulse Resp BP BP Pulse Ox 01/26/23 07:08 98.1 F 82 21 137/83 93 L 01/26/23 02:28 99.2 F 80 17 118/71 90 L 01/25/23 21:40 98.4 F 73 18 134/76 97 01/25/23 20:42 80 18 115/67 95 01/25/23 18:17 91 18 167/103 93 L 01/25/23 16:48 80 18 139/80 93 L 01/25/23 12:13 93 L 01/25/23 12:09 99.1 F 62 16 118/77 Intake and Output 01/25/23 01/26/23 01/26/23 22:59 06:59 14:59 Other: # Voids 2 1 # Bowel Movements 1 Weight 52.163 kg Results CBC & Chem 7: 01/25/23 14:21 01/25/23 14:21 Labs: Abnormal Lab Results - Last 24 Hours (Table) 01/25/23 01/25/23 01/25/23 Range/Units 14:21 14:21 14:21 Plt Count 131 L (150-450) k/uL Lymphocytes # 0.6 L (1.0-4.8) k/uL Sodium 129 L (137-145) mmol/L Chloride 90 L (98-107) mmol/L Creatinine 0.43 L (0.52-1.04) mg/dL Glucose 134 H (74-99) mg/dL AST 72 H (14-36) U/L Urine Protein (Negative) Urine Ketones (Negative) Ur Oxycodone Screen (NotDetected) Urine Methadone Screen (NotDetected) SARS-CoV-2 (PCR) Detected A (Not Detectd) 01/25/23 01/25/23 Range/Units 20:27 23:59 Plt Count (150-450) k/uL Lymphocytes # (1.0-4.8) k/uL Sodium (137-145) mmol/L Chloride (98-107) mmol/L Creatinine (0.52-1.04) mg/dL Glucose (74-99) mg/dL AST (14-36) U/L Urine Protein Trace H (Negative) Urine Ketones 1+ H (Negative) Ur Oxycodone Screen Detected H (NotDetected) Urine Methadone Screen Detected H (NotDetected) SARS-CoV-2 (PCR) (Not Detectd) Assessment and Plan Assessment: Assessment and plan * Covid 19 infection with fatigue and malaise * Status post fall prior to admission * Coronary artery disease history of CABG * Ischemic cardiomyopathy ejection fraction 20 pulse * Chronic pain syndrome * History of seizure disorder * Diabetes mellitus type 2 * Hypothyroid * In regards to Covid, continue to monitor inflammation markers, monitor for desaturation, continue breathing treatments as needed symptom management, st arted on dexamethasone and Mucinex * In regards to fall, maintain maximum fall precautions while inpatient, physical therapy occupational therapy consulted * In regards to coronary artery disease/cardiomyopathy, continue cardiac candidate and medical therapy, aspirin, Plavix, Lipitor, metoprolol * In regards to diabetes mellitus Accu-Cheks before meals at bedtime continue patient on correctional insulin * Regards to seizure disorder continue Keppra * CODE STATUS is full code Time with Patient: Greater than 30
[2023-01-26 11:56] LABS: Glucose,Whole Blood 137 mg/dL (70-110)
[2023-01-26] MEDS: INSULIN ASPART (NovoLOG) 100 UNIT/ML VIAL SQ SCH ×3 (12:11→20:45)
[2023-01-26] MEDS: guaiFENesin 600 MG TABLET.ER PO SCH ×2 (12:27→20:44)
[2023-01-26] MEDS: dexAMETHasone 2 MG TAB PO SCH (12:27)
[2023-01-26 16:30] LABS: Glucose,Whole Blood 166 mg/dL (70-110)
[2023-01-26] MEDS: oxyCODONE-APAP 10-325MG 1 EACH TAB PO PRN (17:15)
[2023-01-26 20:34] LABS: Glucose,Whole Blood 456 mg/dL (70-110)
[2023-01-26] MEDS: traZODone HCL 100 MG TAB PO SCH (20:44)
[2023-01-26] MEDS ORDERED: INSULIN ASPART (NovoLOG) 100 UNIT/ML VIAL SQ ONE (20:45)
[2023-01-26] MEDS: ATORVASTATIN 40 MG TAB PO SCH (20:45)
[2023-01-26] MEDS ORDERED: INSULIN DETEMIR (LEVEMIR) 100 UNIT/ML SYR SQ ONE (21:00)
[2023-01-26 23:13] LABS: Glucose,Whole Blood 331 mg/dL (70-110)
[2023-01-27 06:10] LABS: Glucose,Whole Blood 159 mg/dL (70-110)
[2023-01-27] MEDS: INSULIN ASPART (NovoLOG) 100 UNIT/ML VIAL SQ SCH ×4 (06:19→20:36)
[2023-01-27] MEDS: LEVOTHYROXINE 50 MCG TAB PO SCH (06:39)
[2023-01-27 08:45] LABS: Basophils % (A) 0 %; Eosinophils % (A) 0 %; HCT 34.7 % (34.0-46.0); HGB 11.9 gm/dL (11.4-16.0); Lymphocytes # (A) 0.6 k/uL (1.0-4.8); Lymphocytes % (A) 23 %; MCH 32.1 pg (25.0-35.0); MCHC 34.2 g/dL (31.0-37.0); MCV 93.9 fL (80.0-100.0); Mean Platelet Volume 8.2; Monocytes # (A) 0.2 k/uL (0-1.0); Monocytes % (A) 6 %; Neutrophils # (A) 1.8 k/uL (1.3-7.7); Neutrophils % (A) 69 %; Platelet Count 118 k/uL (150-450); RBC 3.69 m/uL (3.80-5.40); RDW 13.3 % (11.5-15.5); WBC 2.7 k/uL (3.8-10.6)
[2023-01-27 08:50] LABS: ALT 19 U/L (4-34); AST 36 U/L (14-36); African American GFR (CKD) >90 (>60 ml/min/1.73 sqM); Albumin 3.1 g/dL (3.5-5.0); Albumin/Globulin Ratio 1.3; Alkaline Phosphatase 51 U/L (38-126); Anion Gap 9 mmol/L; Blood Urea Nitrogen 17 mg/dL (7-17); Carbon Dioxide 25 mmol/L (22-30); Chloride 99 mmol/L (98-107); Globulin 2.4 g/dL; Glucose 138 mg/dL (74-99); Non-African American GFR(CKD) >90 (>60 ml/min/1.73 sqM); Potassium 3.8 mmol/L (3.5-5.1); Sodium 133 mmol/L (137-145); Total Bilirubin 0.4 mg/dL (0.2-1.3); Total Protein 5.5 g/dL (6.3-8.2)
[2023-01-27] MEDS: METOPROLOL TARTRATE 12.5 MG TAB PO SCH ×2 (08:50→20:35)
[2023-01-27] MEDS: METHADONE 10 MG TAB PO SCH ×3 (08:51→20:35)
[2023-01-27] MEDS: PANTOPRAZOLE 40 MG TABLET PO SCH (08:52)
[2023-01-27] MEDS: ASPIRIN 81 MG PO SCH (08:52)
[2023-01-27] MEDS: levETIRAcetam 500 MG TAB PO SCH ×2 (08:52→20:35)
[2023-01-27] MEDS: dexAMETHasone 2 MG TAB PO SCH (08:52)
[2023-01-27] MEDS: GABAPENTIN 400 MG CAP PO SCH ×3 (08:52→20:35)
[2023-01-27] MEDS: CLOPIDOGREL 75 MG TAB PO SCH (08:52)
[2023-01-27] MEDS: DULoxetine HCL 60 MG CAPSULE.DR PO SCH (08:52)
[2023-01-27] MEDS: MONTELUKAST 10 MG TAB PO SCH (08:52)
[2023-01-27] MEDS: busPIRone HCl 5 MG TAB PO SCH (08:52)
[2023-01-27] MEDS: ENOXAPARIN 40 MG/0.4 ML SYRINGE SQ SCH (08:53)
[2023-01-27] MEDS: metFORMIN 500 MG TAB PO SCH ×2 (08:53→20:36)
[2023-01-27] MEDS: guaiFENesin 600 MG TABLET.ER PO SCH ×2 (08:53→20:36)
[2023-01-27 10:48] LABS: C Reactive Protein 5.9 mg/dL (<1.0)
[2023-01-27 11:43] LABS: Glucose,Whole Blood 139 mg/dL (70-110)
--- NOTE | 2023-01-27 13:02 | P.PN ---
Subjective Progress Note Date: 01/27/23 * 68-year-old patient with past medical history significant for coronary artery disease status post CABG, hypertension, hyperlipidemia, ischemic cardiomyopathy ejection fraction 20%, diabetes mellitus, chronic pain syndrome on methadone, history of seizure disorder, chronic hyponatremia, hypothyroid, history of rectal prolapse, diabetes mellitus HbA1c 6.5 presents to the emergency department with complains of fatigue, weakness and fall at home. Patient has not been feeling well for the last 3 days with complaints of cough, chest congestion, headache, generalized weakness. Patient states she felt weak and slid to the ground. Workup obtained in ER included comprehensive metabolic panel, CBC * Workup obtained included CBC which were WBC count of 6.2 hemoglobin 12.7 platelet count of 131 * Serum chemistry showed sodium 129 potassium 4 chloride 90 B UN 10 creatinine 0.43 AST of 26 AST 72 * Urine toxin positive for oxycodone and methadone * Patient tested positive for coronavirus. Tested negative for influenza and RSV * Patient admitted to medical floor with consultation to be obtained from [facility] occupational therapy * 01/27/23 : Patient seen and evaluated bedside, patient continued to complain of cough, malaise, blood work showed WBC of 2.7 dated 118, sodium 133 albumin of 3.1 REVIEW OF SYSTEMS: Generalized weakness, cough, chest condition, fall CONSTITUTIONAL: Generalized weakness, cough, chest condition, fall HEENT: No recent visual problems or hearing problems. Denied any sore throat. CARDIOVASCULAR: No chest pain, orthopnea, PND, no palpitations, no syncope. PULMONARY: Generalized weakness, cough, chest condition, fall GASTROINTESTINAL: No diarrhea, no nausea, no vomiting, no abdominal pain. NEUROLOGICAL: No headaches, no weakness, no numbness. HEMATOLOGICAL: Denies any bleeding or petechiae. GENITOURINARY: Denies any burning micturition, frequency, or urgency. MUSCULOSKELETAL/RHEUMATOLOGICAL: Denies any joint pain, swelling, or any muscle pain. ENDOCRINE: Denies any polyuria or polydipsia. PHYSICAL EXAMINATION: GENERAL: The patient is alert and oriented x3, ill appearance, underweight HEENT: Pupils are round and equally reacting to light. EOMI. CARDIOVASCULAR: S1 and S2 present. No murmurs, rubs, or gallops. PULMONARY: Decreased breath sounds bilaterally. ABDOMEN: Soft, nontender, nondistended, normoactive bowel sounds. No palpable organomegaly. MUSCULOSKELETAL: No joint swelling or deformity. EXTREMITIES: No cyanosis, clubbing, or pedal edema. NEUROLOGICAL: Gross neurological examination did not reveal any focal deficits. SKIN: No rashes. Objective - Vital Signs Vital signs: Vital Signs Temp 97.3 F L 01/27/23 07:10 Pulse 59 L 01/27/23 07:10 Resp 18 01/27/23 07:10 BP 97/61 01/27/23 07:10 Pulse Ox 95 01/27/23 09:21 FiO2 Intake & Output 01/26/23 01/27/23 01/27/23 18:59 06:59 18:59 Other: Voiding Method Toilet # Voids 1 1 # Bowel Movements 1 - Labs CBC & Chem 7: 01/27/23 06:49 01/27/23 06:49 Labs: Abnormal Lab Results - Last 24 Hours (Table) 01/26/23 01/26/23 01/26/23 Range/Units 16:27 20:31 23:12 WBC (3.8-10.6) k/uL RBC (3.80-5.40) m/uL Plt Count (150-450) k/uL Lymphocytes # (1.0-4.8) k/uL Sodium (137-145) mmol/L Creatinine (0.52-1.04) mg/dL Glucose (74-99) mg/dL POC Glucose (mg/dL) 166 H 456 H 331 H (70-110) mg/dL C-Reactive Protein (<1.0) mg/dL Total Protein (6.3-8.2) g/dL Albumin (3.5-5.0) g/dL 01/27/23 01/27/23 01/27/23 Range/Units 06:07 06:49 06:49 WBC 2.7 L (3.8-10.6) k/uL RBC 3.69 L (3.80-5.40) m/uL Plt Count 118 L (150-450) k/uL Lymphocytes # 0.6 L (1.0-4.8) k/uL Sodium 133 L (137-145) mmol/L Creatinine 0.40 L (0.52-1.04) mg/dL Glucose 138 H (74-99) mg/dL POC Glucose (mg/dL) 159 H (70-110) mg/dL C-Reactive Protein 5.9 H (<1.0) mg/dL Total Protein 5.5 L (6.3-8.2) g/dL Albumin 3.1 L (3.5-5.0) g/dL 01/27/23 Range/Units 11:41 WBC (3.8-10.6) k/uL RBC (3.80-5.40) m/uL Plt Count (150-450) k/uL Lymphocytes # (1.0-4.8) k/uL Sodium (137-145) mmol/L Creatinine (0.52-1.04) mg/dL Glucose (74-99) mg/dL POC Glucose (mg/dL) 139 H (70-110) mg/dL C-Reactive Protein (<1.0) mg/dL Total Protein (6.3-8.2) g/dL Albumin (3.5-5.0) g/dL Assessment and Plan Assessment: Assessment and plan * Covid 19 infection with fatigue and malaise * Status post fall prior to admission * Coronary artery disease history of CABG * Ischemic cardiomyopathy ejection fraction 20 pulse * Chronic pain syndrome * History of seizure disorder * Diabetes mellitus type 2 * Hypothyroid * In regards to Covid, continue to monitor inflammation markers, monitor for desaturation, continue breathing treatments as needed symptom management, started on dexamethasone and Mucinex * In regards to fall, maintain maximum fall precautions while inpatient, phy sical therapy occupational therapy consulted * In regards to coronary artery disease/cardiomyopathy, continue cardiac candidate and medical therapy, aspirin, Plavix, Lipitor, metoprolol * In regards to diabetes mellitus Accu-Cheks before meals at bedtime continue patient on correctional insulin * Regards to seizure disorder continue Keppra * In regards to chronic pain continue patient on methadone, gabapentin, monitor for oversedation * CODE STATUS is full code Time with Patient: Greater than 30
[2023-01-27 16:47] LABS: Glucose,Whole Blood 285 mg/dL (70-110)
[2023-01-27] MEDS: ALBUTEROL HFA INHALER INHALATION PRN (19:38)
[2023-01-27] MEDS: oxyCODONE-APAP 10-325MG 1 EACH TAB PO PRN (19:47)
[2023-01-27 20:25] LABS: Glucose,Whole Blood 306 mg/dL (70-110)
[2023-01-27] MEDS: ATORVASTATIN 40 MG TAB PO SCH (20:36)
[2023-01-27] MEDS: traZODone HCL 100 MG TAB PO SCH (20:36)
[2023-01-28 06:01] LABS: Glucose,Whole Blood 93 mg/dL (70-110)
[2023-01-28] MEDS: PANTOPRAZOLE 40 MG TABLET PO SCH (06:24)
[2023-01-28] MEDS: oxyCODONE-APAP 10-325MG 1 EACH TAB PO PRN ×2 (06:24→16:40)
[2023-01-28] MEDS: LEVOTHYROXINE 50 MCG TAB PO SCH (06:24)
[2023-01-28] MEDS: INSULIN ASPART (NovoLOG) 100 UNIT/ML VIAL SQ SCH ×4 (06:37→21:44)
[2023-01-28] MEDS: ALBUTEROL HFA INHALER INHALATION PRN ×3 (08:30→21:04)
[2023-01-28] MEDS: MONTELUKAST 10 MG TAB PO SCH (08:54)
[2023-01-28] MEDS: busPIRone HCl 5 MG TAB PO SCH (08:54)
[2023-01-28] MEDS: METOPROLOL TARTRATE 12.5 MG TAB PO SCH ×2 (08:54→20:28)
[2023-01-28] MEDS: METHADONE 10 MG TAB PO SCH ×3 (08:55→21:43)
[2023-01-28] MEDS: dexAMETHasone 2 MG TAB PO SCH (08:55)
[2023-01-28] MEDS: levETIRAcetam 500 MG TAB PO SCH ×2 (08:55→20:28)
[2023-01-28] MEDS: metFORMIN 500 MG TAB PO SCH ×2 (08:55→21:44)
[2023-01-28] MEDS: DULoxetine HCL 60 MG CAPSULE.DR PO SCH (08:55)
[2023-01-28] MEDS: ENOXAPARIN 40 MG/0.4 ML SYRINGE SQ SCH (08:55)
[2023-01-28] MEDS: ASPIRIN 81 MG PO SCH (08:55)
[2023-01-28] MEDS: GABAPENTIN 400 MG CAP PO SCH ×3 (08:55→21:43)
[2023-01-28] MEDS: CLOPIDOGREL 75 MG TAB PO SCH (08:55)
[2023-01-28] MEDS: guaiFENesin 600 MG TABLET.ER PO SCH ×2 (08:55→20:29)
[2023-01-28 11:28] LABS: Glucose,Whole Blood 110 mg/dL (70-110)
[2023-01-28 11:53] LABS: Basophils # (A) 0.01 X 10*3/uL (0.00-0.10); Basophils % (A) 0.2 %; Eosinophils # (A) 0.02 X 10*3/uL (0.04-0.35); Eosinophils % (A) 0.3 %; HCT 33.3 % (37.2-46.3); HGB 11.1 g/dL (12.0-15.0); Lymphocytes # (A) 0.99 X 10*3/uL (0.90-5.00); Lymphocytes % (A) 16.2 %; MCH 30.9 pg (27.0-32.0); MCHC 33.3 g/dL (32.0-37.0); MCV 92.8 FL (80.0-97.0); Monocytes # (A) 0.26 X 10*3/uL (0.20-1.00); Monocytes % (A) 4.2 %; NRBC Per 100 WBC 0 X 10*3/uL (0.00-0.01); Neutrophils # (A) 4.81 X 10*3/uL (1.80-7.70); Neutrophils % (A) 78.6 %; Platelet Count 128 X 10*3/uL (140-440); RBC 3.59 X 10*6/uL (4.10-5.20); RDW 12.8 % (11.5-14.5); WBC 6.12 X 10*3/uL (4.50-10.00)
[2023-01-28 12:12] LABS: ALT 18 U/L (8-44); AST 22 U/L (13-35); Albumin 3.5 g/dL (3.8-4.9); Albumin/Globulin Ratio 1.75 Ratio (1.60-3.17); Alkaline Phosphatase 53 U/L (41-126); Blood Urea Nitrogen 11.9 mg/dL (9.0-27.0); Calcium 9.3 mg/dL (8.7-10.3); Chloride 100 mmol/L (96-109); Glucose 80 mg/dL (70-110); Potassium 4.1 mmol/L (3.5-5.5); Sodium 135 mmol/L (135-145); Total Bilirubin 0.2 mg/dL (0.3-1.2); Total Protein 5.5 g/dL (6.2-8.2)
--- NOTE | 2023-01-28 12:32 | P.PN ---
Subjective Progress Note Date: 01/28/23 * 68-year-old patient with past medical history significant for coronary artery disease status post CABG, hypertension, hyperlipidemia, ischemic cardiomyopathy ejection fraction 20%, diabetes mellitus, chronic pain syndrome on methadone, history of seizure disorder, chronic hyponatremia, hypothyroid, history of rectal prolapse, diabetes mellitus HbA1c 6.5 presents to the emergency department with complains of fatigue, weakness and fall at home. Patient has not been feeling well for the last 3 days with complaints of cough, chest congestion, headache, generalized weakness. Patient states she felt weak and slid to the ground. * Workup obtained included CBC which were WBC count of 6.2 hemoglobin 12.7 platelet count of 131 * Serum chemistry showed sodium 129 potassium 4 chloride 90 B UN 10 creatinine 0.43 AST of 26 AST 72 * Urine toxin positive for oxycodone and methadone * Patient tested positive for coronavirus. Tested negative for influenza and RSV * Patient admitted to medical floor with consultation to be obtained from physical therapy occupational therapy * 01/27/23 : Patient seen and evaluated bedside, patient continued to complain of cough, malaise, blood work showed WBC of 2.7 dated 118, sodium 133 albumin of 3.1 * 01/28/23: Patient seen and evaluated bedside, patient states fatigue has improved, patient continues to remain weak Will consult physical therapy occupational therapy CRP trending down as well, CBC showed hemoglobin of 11.1 platelet 128/ R panel reviewed REVIEW OF SYSTEMS: Generalized weakness, cough, chest condition IMPROVED , fall prior to admission CONSTITUTIONAL: Generalized weakness, cough, chest condition, fall HEENT: No recent visual problems or hearing problems. Denied any sore throat. CARDIOVASCULAR: No chest pain, orthopnea, PND, no palpitations, no syncope. PULMONARY: Generalized weakness, cough, chest condition, fall GASTROINTESTINAL: No diarrhea, no nausea, no vomiting, no abdominal pain. NEUROLOGICAL: No headaches, no weakness, no numbness. HEMATOLOGICAL: Denies any bleeding or petechiae. GENITOURINARY: Denies any burning micturition, frequency, or urgency. MUSCULOSKELETAL/RHEUMATOLOGICAL: Denies any joint pain, swelling, or any muscle pain. ENDOCRINE: Denies any polyuria or polydipsia. PHYSICAL EXAMINATION: GENERAL: The patient is alert and oriented x3, ill appearance, underweight HEENT: Pupils are round and equally reacting to light. EOMI. CARDIOVASCULAR: S1 and S2 present. No murmurs, rubs, or gallops. PULMONARY: Decreased breath sounds bilaterally. ABDOMEN: Soft, nontender, nondistended, normoactive bowel sounds. No palpable organomegaly. MUSCULOSKELETAL: No joint swelling or deformity. EXTREMITIES: No cyanosis, clubbing, or pedal edema. NEUROLOGICAL: Gross neurological examination did not reveal any focal deficits. SKIN: No rashes. Objective - Vital Signs Vital signs: Vital Signs Temp 97.5 F L 01/28/23 02:22 Pulse 63 01/28/23 02:22 Resp 17 01/28/23 02:22 BP 166/90 01/28/23 02:22 Pulse Ox 96 01/28/23 08:31 FiO2 Intake & Output 01/27/23 01/28/23 01/28/23 18:59 06:59 18:59 Other: # Voids 5 2 # Bowel Movements 1 - Labs CBC & Chem 7: 01/28/23 07:52 01/28/23 07:52 Labs: Abnormal Lab Results - Last 24 Hours (Table) 01/27/23 01/27/23 01/28/23 Range/Units 16:46 20:23 07:52 RBC 3.59 L (4.10-5.20) X 10*6/uL Hgb 11.1 L (12.0-15.0) g/dL Hct 33.3 L (37.2-46.3) % Plt Count 128 L (140-440) X 10*3/uL Eosinophils # 0.02 L (0.04-0.35) X 10*3/uL Creatinine (0.6-1.5) mg/dL BUN/Creatinine Ratio (12.00-20.00) Ratio POC Glucose (mg/dL) 285 H 306 H (70-110) mg/dL Total Bilirubin (0.3-1.2) mg/dL C-Reactive Protein (0.00-0.80) mg/dL Total Protein (6.2-8.2) g/dL Albumin (3.8-4.9) g/dL 01/28/23 Range/Units 07:52 RBC (4.10-5.20) X 10*6/uL Hgb (12.0-15.0) g/dL Hct (37.2-46.3) % Plt Count (140-440) X 10*3/uL Eosinophils # (0.04-0.35) X 10*3/uL Creatinine 0.5 L (0.6-1.5) mg/dL BUN/Creatinine Ratio 23.80 H (12.00-20.00) Ratio POC Glucose (mg/dL) (70-110) mg/dL Total Bilirubin 0.2 L (0.3-1.2) mg/dL C-Reactive Protein 3.00 H (0.00-0.80) mg/dL Total Protein 5.5 L (6.2-8.2) g/dL Albumin 3.5 L (3.8-4.9) g/dL Assessment and Plan Assessment: Assessment and plan * Covid 19 infection with fatigue and malaise * Status post fall prior to admission * Coronary artery disease history of CABG * Ischemic cardiomyopathy ejection fraction 20 pulse * Chronic pain syndrome * History of seizure disorder * Diabetes mellitus type 2 * Hypothyroid * In regards to Covid, continue to monitor inflammation markers, monitor for desaturation, continue breathing treatments as needed symptom management, started on dexamethasone day 3 and Mucinex * In regards to fall, maintain maximum fall precautions while inpatient, p hysical therapy occupational therapy consulted * In regards to coronary artery disease/cardiomyopathy, continue cardiac candidate and medical therapy, aspirin, Plavix, Lipitor, metoprolol * In regards to diabetes mellitus Accu-Cheks before meals at bedtime continue patient on correctional insulin * Regards to seizure disorder continue Keppra * In regards to chronic pain continue patient on methadone, gabapentin, monitor for oversedation * CODE STATUS is full code Time with Patient: Greater than 30
[2023-01-28 16:32] LABS: Glucose,Whole Blood 265 mg/dL (70-110)
[2023-01-28] MEDS: ATORVASTATIN 40 MG TAB PO SCH (20:28)
[2023-01-28 20:34] LABS: Glucose,Whole Blood 308 mg/dL (70-110)
[2023-01-28] MEDS: traZODone HCL 100 MG TAB PO SCH (21:43)
[2023-01-29] MEDS ORDERED: hydrALAZINE HCL 20 MG/ML 1 ML VIAL IVP STA (02:27)
[2023-01-29 05:59] LABS: Glucose,Whole Blood 94 mg/dL (70-110)
[2023-01-29] MEDS: INSULIN ASPART (NovoLOG) 100 UNIT/ML VIAL SQ SCH ×4 (06:02→21:22)
[2023-01-29] MEDS: LEVOTHYROXINE 50 MCG TAB PO SCH (06:35)
[2023-01-29] MEDS: PANTOPRAZOLE 40 MG TABLET PO SCH (06:35)
[2023-01-29] MEDS: levETIRAcetam 500 MG TAB PO SCH ×2 (07:59→21:22)
[2023-01-29] MEDS: dexAMETHasone 2 MG TAB PO SCH (08:00)
[2023-01-29] MEDS: DULoxetine HCL 60 MG CAPSULE.DR PO SCH (08:00)
[2023-01-29] MEDS: METOPROLOL TARTRATE 12.5 MG TAB PO SCH ×2 (08:01→21:20)
[2023-01-29] MEDS: METHADONE 10 MG TAB PO SCH ×3 (08:01→21:21)
[2023-01-29] MEDS: guaiFENesin 600 MG TABLET.ER PO SCH ×2 (08:02→21:20)
[2023-01-29] MEDS: GABAPENTIN 400 MG CAP PO SCH ×3 (08:02→21:21)
[2023-01-29] MEDS: metFORMIN 500 MG TAB PO SCH ×2 (08:02→21:21)
[2023-01-29] MEDS: MONTELUKAST 10 MG TAB PO SCH (08:03)
[2023-01-29] MEDS: ENOXAPARIN 40 MG/0.4 ML SYRINGE SQ SCH (08:03)
[2023-01-29] MEDS: CLOPIDOGREL 75 MG TAB PO SCH (08:03)
[2023-01-29] MEDS: ASPIRIN 81 MG PO SCH (08:03)
[2023-01-29] MEDS: busPIRone HCl 5 MG TAB PO SCH (08:03)
[2023-01-29] MEDS: ALBUTEROL HFA INHALER INHALATION PRN ×3 (08:17→21:36)
[2023-01-29 09:36] LABS: Basophils # (A) 0.01 X 10*3/uL (0.00-0.10); Basophils % (A) 0.2 %; Eosinophils # (A) 0.06 X 10*3/uL (0.04-0.35); Eosinophils % (A) 1.1 %; HCT 39.3 % (37.2-46.3); Lymphocytes # (A) 1.15 X 10*3/uL (0.90-5.00); Lymphocytes % (A) 21.2 %; MCH 30.4 pg (27.0-32.0); MCHC 33.1 g/dL (32.0-37.0); Mean Platelet Volume 11.4 FL (9.5-12.2); Monocytes % (A) 5.5 %; NRBC Per 100 WBC 0 X 10*3/uL (0.00-0.01); Neutrophils # (A) 3.89 X 10*3/uL (1.80-7.70); Neutrophils % (A) 71.6 %; Platelet Count 121 X 10*3/uL (140-440); RBC 4.27 X 10*6/uL (4.10-5.20); RDW 12.8 % (11.5-14.5); WBC 5.43 X 10*3/uL (4.50-10.00)
[2023-01-29] MEDS: oxyCODONE-APAP 10-325MG 1 EACH TAB PO PRN (10:32)
[2023-01-29 11:14] LABS: ALT 16 U/L (8-44); AST 19 U/L (13-35); Albumin 3.6 g/dL (3.8-4.9); Albumin/Globulin Ratio 1.57 Ratio (1.60-3.17); Alkaline Phosphatase 63 U/L (41-126); BUN/Creat Ratio 27.25 Ratio (12.00-20.00); Blood Urea Nitrogen 10.9 mg/dL (9.0-27.0); Calcium 9.5 mg/dL (8.7-10.3); Carbon Dioxide 24.9 mmol/L (21.6-31.8); Chloride 98 mmol/L (96-109); Globulin 2.3 g/dL (1.6-3.3); Glucose 90 mg/dL (70-110); Sodium 137 mmol/L (135-145); Total Bilirubin 0.3 mg/dL (0.3-1.2); Total Protein 5.9 g/dL (6.2-8.2)
[2023-01-29 12:19] LABS: Glucose,Whole Blood 169 mg/dL (70-110)
--- NOTE | 2023-01-29 12:34 | P.PN ---
Subjective Progress Note Date: 01/29/23 * 68-year-old patient with past medical history significant for coronary artery disease status post CABG, hypertension, hyperlipidemia, ischemic cardiomyopathy ejection fraction 20%, diabetes mellitus, chronic pain syndrome on methadone, history of seizure disorder, chronic hyponatremia, hypothyroid, history of rectal prolapse, diabetes mellitus HbA1c 6.5 presents to the emergency department with complains of fatigue, weakness and fall at home. Patient has not been feeling well for the last 3 days with complaints of cough, chest congestion, headache, generalized weakness. Patient states she felt weak and slid to the ground. * Workup obtained included CBC which were WBC count of 6.2 hemoglobin 12.7 platelet count of 131 * Serum chemistry showed sodium 129 potassium 4 chloride 90 B UN 10 creatinine 0.43 AST of 26 AST 72 * Urine toxin positive for oxycodone and methadone * Patient tested positive for coronavirus. Tested negative for influenza and RSV * Patient admitted to medical floor with consultation to be obtained from physical therapy occupational therapy * 01/27/23 : Patient seen and evaluated bedside, patient continued to complain of cough, malaise, blood work showed WBC of 2.7 dated 118, sodium 133 albumin of 3.1 * 01/28/23: Patient seen and evaluated bedside, patient states fatigue has improved, patient continues to remain weak Will consult physical therapy occupational therapy CRP trending down as well, CBC showed hemoglobin of 11.1 platelet 128/ R panel reviewed * 01/29/23: Patient seen and evaluated bedside, patient does complain of cough and weakness, patient will need to work with physical therapy, patient does not have a place to go she was living with her sister was not willing to take her back home. Patient appears stable at this time REVIEW OF SYSTEMS: Generalized weakness, cough, chest condition IMPROVED , fall prior to admission CONSTITUTIONAL: Generalized weakness, cough, chest condition, fall HEENT: No recent visual problems or hearing problems. Denied any sore throat. CARDIOVASCULAR: No chest pain, orthopnea, PND, no palpitations, no syncope. PULMONARY: Generalized weakness, cough, chest condition, fall GASTROINTESTINAL: No diarrhea, no nausea, no vomiting, no abdominal pain. NEUROLOGICAL: No headaches, no weakness, no numbness. HEMATOLOGICAL: Denies any bleeding or petechiae. GENITOURINARY: Denies any burning micturition, frequency, or urgency. MUSCULOSKELETAL/RHEUMATOLOGICAL: Denies any joint pain, swelling, or any muscle pain. ENDOCRINE: Denies any polyuria or polydipsia. PHYSICAL EXAMINATION: GENERAL: The patient is alert and oriented x3, ill appearance, underweight HEENT: Pupils are round and equally reacting to light. EOMI. CARDIOVASCULAR: S1 and S2 present. No murmurs, rubs, or gallops. PULMONARY: Decreased breath sounds bilaterally. ABDOMEN: Soft, nontender, nondistended, normoactive bowel sounds. No palpable organomegaly. MUSCULOSKELETAL: No joint swelling or deformity. EXTREMITIES: No cyanosis, clubbing, or pedal edema. NEUROLOGICAL: Gross neurological examination did not reveal any focal deficits. SKIN: No rashes. Objective - Vital Signs Vital signs: Vital Signs Temp 97.3 F L 01/29/23 07:20 Pulse 67 01/29/23 07:20 Resp 16 01/29/23 07:20 BP 117/68 01/29/23 07:20 Pulse Ox 98 01/29/23 07:20 FiO2 Intake & Output 01/28/23 01/29/23 01/29/23 18:59 06:59 18:59 Other: Voiding Method Toilet # Voids 5 2 - Labs CBC & Chem 7: 01/29/23 06:09 01/29/23 06:09 Labs: Abnormal Lab Results - Last 24 Hours (Table) 01/28/23 01/28/23 01/29/23 Range/Units 16:31 20:31 06:09 Plt Count 121 L (140-440) X 10*3/uL Anion Gap (4.00-12.00) mmol/L Creatinine (0.6-1.5) mg/dL BUN/Creatinine Ratio (12.00-20.00) Ratio POC Glucose (mg/dL) 265 H 308 H (70-110) mg/dL C-Reactive Protein (0.00-0.80) mg/dL Total Protein (6.2-8.2) g/dL Albumin (3.8-4.9) g/dL Albumin/Globulin Ratio (1.60-3.17) Ratio 01/29/23 01/29/23 Range/Units 06:09 12:17 Plt Count (140-440) X 10*3/uL Anion Gap 14.10 H (4.00-12.00) mmol/L Creatinine 0.4 L (0.6-1.5) mg/dL BUN/Creatinine Ratio 27.25 H (12.00-20.00) Ratio POC Glucose (mg/dL) 169 H (70-110) mg/dL C-Reactive Protein 2.50 H (0.00-0.80) mg/dL Total Protein 5.9 L (6.2-8.2) g/dL Albumin 3.6 L (3.8-4.9) g/dL Albumin/Globulin Ratio 1.57 L (1.60-3.17) Ratio Assessment and Plan Assessment: Assessment and plan * Covid 19 infection with fatigue and malaise * Status post fall prior to admission * Coronary artery disease history of CABG * Ischemic cardiomyopathy ejection fraction 20 pulse * Chronic pain syndrome * History of seizure disorder * Diabetes mellitus type 2 * Hypothyroid * In regards to Covid, continue to monitor inflammation markers, monitor for desaturation, continue breathing treatments as needed symptom management, started on dexamethasone day 4 DISCONTINUED>> Mucinex * In regards to fall, maintain maximum fall precautions while inpatient, physical therapy occupational therapy consulted * In regards to coronary artery disease/cardiomyopathy, continue cardiac candidate and medical therapy, aspirin, Plavix, Lipitor, metoprolol * In regards to diabetes mellitus Accu-Cheks before meals at bedtime continue patient on correctional insulin * Regards to seizure disorder continue Keppra * In regards to chronic pain continue patient on methadone, gabapentin, monitor for oversedation * CODE STATUS is full code
[2023-01-29 16:27] LABS: Glucose,Whole Blood 228 mg/dL (70-110)
[2023-01-29 20:41] LABS: Glucose,Whole Blood 164 mg/dL (70-110)
[2023-01-29] MEDS: ATORVASTATIN 40 MG TAB PO SCH (21:22)
[2023-01-29] MEDS: traZODone HCL 100 MG TAB PO SCH (21:22)
[2023-01-30 05:57] LABS: Glucose,Whole Blood 104 mg/dL (70-110)
[2023-01-30] MEDS: INSULIN ASPART (NovoLOG) 100 UNIT/ML VIAL SQ SCH ×4 (06:07→21:11)
[2023-01-30] MEDS: PANTOPRAZOLE 40 MG TABLET PO SCH (06:12)
[2023-01-30] MEDS: LEVOTHYROXINE 50 MCG TAB PO SCH (06:12)
[2023-01-30] MEDS: ALBUTEROL HFA INHALER INHALATION PRN ×2 (07:43→18:22)
[2023-01-30] MEDS: levETIRAcetam 500 MG TAB PO SCH ×2 (08:37→21:11)
[2023-01-30] MEDS: METOPROLOL TARTRATE 12.5 MG TAB PO SCH ×2 (08:37→21:10)
[2023-01-30] MEDS: CLOPIDOGREL 75 MG TAB PO SCH (08:37)
[2023-01-30] MEDS: guaiFENesin 600 MG TABLET.ER PO SCH ×2 (08:37→21:11)
[2023-01-30] MEDS: metFORMIN 500 MG TAB PO SCH ×2 (08:37→21:11)
[2023-01-30] MEDS: METHADONE 10 MG TAB PO SCH ×3 (08:37→21:10)
[2023-01-30] MEDS: GABAPENTIN 400 MG CAP PO SCH ×3 (08:37→21:11)
[2023-01-30] MEDS: ASPIRIN 81 MG PO SCH (08:37)
[2023-01-30] MEDS: DULoxetine HCL 60 MG CAPSULE.DR PO SCH (08:37)
[2023-01-30] MEDS: busPIRone HCl 5 MG TAB PO SCH (08:38)
[2023-01-30] MEDS: ENOXAPARIN 40 MG/0.4 ML SYRINGE SQ SCH (08:38)
[2023-01-30] MEDS: MONTELUKAST 10 MG TAB PO SCH (08:38)
[2023-01-30 11:15] LABS: Glucose,Whole Blood 119 mg/dL (70-110)
--- NOTE | 2023-01-30 12:34 | P.PN ---
Subjective Progress Note Date: 01/30/23 * 68-year-old patient with past medical history significant for coronary artery disease status post CABG, hypertension, hyperlipidemia, ischemic cardiomyopathy ejection fraction 20%, diabetes mellitus, chronic pain syndrome on methadone, history of seizure disorder, chronic hyponatremia, hypothyroid, history of rectal prolapse, diabetes mellitus HbA1c 6.5 presents to the emergency department with complains of fatigue, weakness and fall at home. Patient has not been feeling well for the last 3 days with complaints of cough, chest congestion, headache, generalized weakness. Patient states she felt weak and slid to the ground. * Workup obtained included CBC which were WBC count of 6.2 hemoglobin 12.7 platelet count of 131 * Serum chemistry showed sodium 129 potassium 4 chloride 90 B UN 10 creatinine 0.43 AST of 26 AST 72 * Urine toxin positive for oxycodone and methadone * Patient tested positive for coronavirus. Tested negative for influenza and RSV * Patient admitted to medical floor with consultation to be obtained from physical therapy occupational therapy * 01/27/23 : Patient seen and evaluated bedside, patient continued to complain of cough, malaise, blood work showed WBC of 2.7 dated 118, sodium 133 albumin of 3.1 * 01/28/23: Patient seen and evaluated bedside, patient states fatigue has improved, patient continues to remain weak Will consult physical therapy occupational therapy CRP trending down as well, CBC showed hemoglobin of 11.1 platelet 128/ R panel reviewed * 01/29/23: Patient seen and evaluated bedside, patient does complain of cough and weakness, patient will need to work with physical therapy, patient does not have a place to go she was living with her sister was not willing to take her back home. Patient appears stable at this time * 01/30/23: Patient seen and evaluated bedside, patient complains of generalized weakness, discharge planning discussed with her, will wait for physical therapy occupational therapy evaluation, patient requested to be discharged to subacute rehab REVIEW OF SYSTEMS: Generalized weakness, cough, chest condition IMPROVED , fall prior to admission CONSTITUTIONAL: Generalized weakness, cough, chest condition, fall HEENT: No recent visual problems or hearing problems. Denied any sore throat. CARDIOVASCULAR: No chest pain, orthopnea, PND, no palpitations, no syncope. PULMONARY: Generalized weakness, cough, chest condition, fall GASTROINTESTINAL: No diarrhea, no nausea, no vomiting, no abdominal pain. NEUROLOGICAL: No headaches, no weakness, no numbness. HEMATOLOGICAL: Denies any bleeding or petechiae. GENITOURINARY: Denies any burning micturition, frequency, or urgency. MUSCULOSKELETAL/RHEUMATOLOGICAL: Denies any joint pain, swelling, or any muscle pain. ENDOCRINE: Denies any polyuria or polydipsia. PHYSICAL EXAMINATION: GENERAL: The patient is alert and oriented x3, ill appearance, underweight HEENT: Pupils are round and equally reacting to light. EOMI. CARDIOVASCULAR: S1 and S2 present. No murmurs, rubs, or gallops. PULMONARY: Decreased breath sounds bilaterally. ABDOMEN: Soft, nontender, nondistended, normoactive bowel sounds. No palpable organomegaly. MUSCULOSKELETAL: No joint swelling or deformity. EXTREMITIES: No cyanosis, clubbing, or pedal edema. NEUROLOGICAL: Gross neurological examination did not reveal any focal deficits. SKIN: No rashes. Objective - Vital Signs Vital signs: Vital Signs Temp 97.6 F 01/30/23 07:22 Pulse 69 01/30/23 07:22 Resp 18 01/30/23 07:22 BP 125/74 01/30/23 07:22 Pulse Ox 94 L 01/30/23 07:22 FiO2 Intake & Output 01/29/23 01/30/23 01/30/23 18:59 06:59 18:59 Intake Total 1080 Balance 1080 Intake: Oral 1080 Other: Voiding Method Toilet Toilet # Voids 3 3 - Labs CBC & Chem 7: 01/29/23 06:09 01/29/23 06:09 Labs: Abnormal Lab Results - Last 24 Hours (Table) 01/29/23 01/29/23 01/30/23 Range/Units 16:26 20:38 11:13 POC Glucose (mg/dL) 228 H 164 H 119 H (70-110) mg/dL Assessment and Plan Assessment: Assessment and plan * Covid 19 infection with fatigue and malaise * Acute bronchitis * Status post fall prior to admission * Coronary artery disease history of CABG * Ischemic cardiomyopathy ejection fraction 20 pulse * Chronic pain syndrome * History of seizure disorder * Diabetes mellitus type 2 * Hypothyroid * In regards to Covid, continue to monitor inflammation markers, monitor for desaturation, continue breathing treatments as needed symptom management, started on dexamethasone day 4 DISCONTINUED>> continue Mucinex * In regards to acute tracheobronchitis status on doxycycline to complete 5 day course * In regards to fall, maintain maximum fall precautions while inpatient, physical therapy occupational therapy consulted * In regards to coronary artery disease/cardiomyopathy, continue cardiac candidate and medical therapy, aspirin, Plavix, Lipitor, metoprolol * In regards to diabetes mellitus Accu-Cheks before meals at bedtime continue patient on correctional insulin * Regards to seizure disorder continue Keppra * In regards to chronic pain continue patient on methadone, gabapentin, monitor for oversedation * Will get physical therapy/occupational therapy evaluation will need discharge to subacute rehab if indicated * CODE STATUS is full code Time with Patient: Greater than 30
[2023-01-30] MEDS: DOXYCYCLINE 100 MG CAP PO SCH ×2 (14:14→21:11)
[2023-01-30 16:31] LABS: Glucose,Whole Blood 173 mg/dL (70-110)
[2023-01-30 20:58] LABS: Glucose,Whole Blood 206 mg/dL (70-110)
[2023-01-30] MEDS: traZODone HCL 100 MG TAB PO SCH (21:10)
[2023-01-30] MEDS: ATORVASTATIN 40 MG TAB PO SCH (21:12)
[2023-01-31 06:13] LABS: Glucose,Whole Blood 95 mg/dL (70-110)
[2023-01-31] MEDS: INSULIN ASPART (NovoLOG) 100 UNIT/ML VIAL SQ SCH ×4 (06:16→21:22)
[2023-01-31] MEDS: PANTOPRAZOLE 40 MG TABLET PO SCH (06:23)
[2023-01-31] MEDS: LEVOTHYROXINE 50 MCG TAB PO SCH (06:23)
[2023-01-31] MEDS: ALBUTEROL HFA INHALER INHALATION PRN ×2 (07:47→20:05)
[2023-01-31] MEDS: MONTELUKAST 10 MG TAB PO SCH (08:37)
[2023-01-31] MEDS: DULoxetine HCL 60 MG CAPSULE.DR PO SCH (08:37)
[2023-01-31] MEDS: GABAPENTIN 400 MG CAP PO SCH ×3 (08:38→21:18)
[2023-01-31] MEDS: ASPIRIN 81 MG PO SCH (08:38)
[2023-01-31] MEDS: CLOPIDOGREL 75 MG TAB PO SCH (08:38)
[2023-01-31] MEDS: levETIRAcetam 500 MG TAB PO SCH ×2 (08:38→21:18)
[2023-01-31] MEDS: guaiFENesin 600 MG TABLET.ER PO SCH ×2 (08:38→21:17)
[2023-01-31] MEDS: ENOXAPARIN 40 MG/0.4 ML SYRINGE SQ SCH (08:39)
[2023-01-31] MEDS: busPIRone HCl 5 MG TAB PO SCH (08:39)
[2023-01-31] MEDS: metFORMIN 500 MG TAB PO SCH ×2 (08:39→21:18)
[2023-01-31] MEDS: DOXYCYCLINE 100 MG CAP PO SCH ×2 (08:39→21:18)
[2023-01-31] MEDS: METHADONE 10 MG TAB PO SCH ×3 (08:40→21:17)
[2023-01-31 08:51] LABS: Blood Urea Nitrogen 16.3 mg/dL (9.0-27.0); Carbon Dioxide 26.5 mmol/L (21.6-31.8); Chloride 102 mmol/L (96-109); Glucose 95 mg/dL (70-110); Potassium 4.1 mmol/L (3.5-5.5); Sodium 140 mmol/L (135-145)
[2023-01-31] MEDS: oxyCODONE-APAP 10-325MG 1 EACH TAB PO PRN (10:34)
[2023-01-31] MEDS: METOPROLOL TARTRATE 12.5 MG TAB PO SCH ×2 (10:35→21:18)
[2023-01-31 10:51] LABS: HCT 39.6 % (37.2-46.3); HGB 12.8 g/dL (12.0-15.0); MCHC 32.3 g/dL (32.0-37.0); Mean Platelet Volume 11.2 FL (9.5-12.2); NRBC Per 100 WBC 0 X 10*3/uL (0.00-0.01); Platelet Count 198 X 10*3/uL (140-440); RBC 4.26 X 10*6/uL (4.10-5.20); WBC 5.48 X 10*3/uL (4.50-10.00)
[2023-01-31 11:14] LABS: Glucose,Whole Blood 229 mg/dL (70-110)
[2023-01-31 13:59] VITALS: BMI 21.7
[2023-01-31 17:10] LABS: Glucose,Whole Blood 140 mg/dL (70-110)
[2023-01-31 19:34] LABS: Glucose,Whole Blood 147 mg/dL (70-110)
--- NOTE | 2023-01-31 20:29 | P.PN ---
Subjective Progress Note Date: 01/31/23 68-year-old patient with past medical history significant for coronary artery disease status post CABG, hypertension, hyperlipidemia, ischemic cardiomyopathy ejection fraction 20%, diabetes mellitus, chronic pain syndrome on methadone, history of seizure disorder, chronic hyponatremia, hypothyroid, history of rectal prolapse, diabetes mellitus HbA1c 6.5 presents to the emergency department with complains of fatigue, weakness and fall at home. Patient has not been feeling well for the last 3 days with complaints of cough, chest congestion, headache, generalized weakness. Patient states she felt weak and slid to the ground. * Workup obtained included CBC which were WBC count of 6.2 hemoglobin 12.7 platelet count of 131 * Serum chemistry showed sodium 129 potassium 4 chloride 90 B UN 10 creatinine 0.43 AST of 26 AST 72 * Urine toxin positive for oxycodone and methadone * Patient tested positive for coronavirus. Tested negative for influenza and RSV * Patient admitted to medical floor with consultation to be obtained from physical therapy occupational therapy * 01/27/23 : Patient seen and evaluated bedside, patient continued to complain of cough, malaise, blood work showed WBC of 2.7 dated 118, sodium 133 albumin of 3.1 * 01/28/23: Patient seen and evaluated bedside, patient states fatigue has improved, patient continues to remain weak Will consult physical therapy occupational therapy CRP trending down as well, CBC showed hemoglobin of 11.1 platelet 128/ R panel reviewed * 01/29/23: Patient seen and evaluated bedside, patient does complain of cough and weakness, patient will need to work with physical therapy, patient does not have a place to go she was living with her sister was not willing to take her back home. Patient appears stable at this time * 01/30/23: Patient seen and evaluated bedside, patient complains of generalized weakness, discharge planning discussed with her, will wait for physical therapy occupational therapy evaluation, patient requested to be discharged to subacute rehab 01/31/2023 Patient is seen in follow-up today and was seen and evaluated by physical therapy recommending home with home care as patient would not qualify for rehab. Patient continues with generalized weakness and also being treated for Covid 19 infection. Case management following and has made arrangements for discharge planning and patient will be going back home with her sister. Patient is currently afebrile and denies any chest pain or shortness of breath. Patient is continued on vitamin and zinc supplements and will continue. Encouraged increased activity as tolerated. REVIEW OF SYSTEMS: Generalized weakness, cough, chest condition IMPROVED , fall prior to admission CONSTITUTIONAL: Generalized weakness, cough, chest condition, fall CARDIOVASCULAR: No chest pain, orthopnea, PND, no palpitations, no syncope. PULMONARY: Generalized weakness, cough, chest condition, fall GASTROINTESTINAL: No diarrhea, no nausea, no vomiting, no abdominal pain. GENITOURINARY: Denies any burning micturition, frequency, or urgency. PHYSICAL EXAMINATION: GENERAL: The patient is alert and oriented x3, ill appearance, underweight, well-developed, unkempt, appears older than stated age HEENT: Pupils are round and equally reacting to light. EOMI. CARDIOVASCULAR: S1 and S2 muffled PULMONARY: Decreased breath sounds bilaterally otherwise clear to auscultation. ABDOMEN: Soft, nontender, nondistended, normoactive bowel sounds. No palpable organomegaly. MUSCULOSKELETAL: No joint swelling or deformity. EXTREMITIES: No cyanosis, clubbing, or pedal edema. NEUROLOGICAL: Gross neurological examination did not reveal any focal deficits. SKIN: No rashes or lesions noted Assessment: * Covid 19 infection with fatigue and malaise * Acute bronchitis * Status post fall prior to admission * Coronary artery disease history of CABG * Ischemic cardiomyopathy ejection fraction 20 percent * Chronic pain syndrome * History of seizure disorder * Diabetes mellitus type 2 * Hypothyroid * GI prophylaxis * DVT prophylaxis * Full code Plan: * In regards to Covid, continue to monitor inflammation markers, monitor for desaturation, continue inhalers as well as symptomatic management * In regards to acute tracheobronchitis,continue on doxycycline to complete 5 day course * In regards to fall, maintain maximum fall precautions while inpatient, physical therapy evaluated the patient and patient would not qualify for rehab recommending home with home care, case management following arranging for discharge planning needs patient will return home with sister * regards to coronary artery disease/cardiomyopathy, continue cardiac medical therapy, aspirin, Plavix, Lipitor, metoprolol * In regards to diabetes mellitus, continue Accu-Cheks before meals at bedtime continue patient on correctional insulin * Regards to seizure disorder, continue Keppra * In regards to chronic pain continue patient on methadone, gabapentin, continue to monitor for over-sedation. Patient may follow-up with pain management outpatient * patient will be discharged in 24 hours to home with sister where she resides The impression and plan of care has been dictated by Nurse Rosa M Gonzales as directed. Dr. Meek MD I have performed a history and examination and MDM of this patient, discussed the same with the dictator, and agree with the dictator's assessment and plan as written ,documented as a scribe. Based on total visit time, I have performed more than 50% of the visit. Objective - Vital Signs Vital signs: Vital Signs Temp 97.5 F L 01/31/23 17:15 Pulse 60 01/31/23 17:15 Resp 14 01/31/23 17:15 BP 90/60 01/31/23 17:15 Pulse Ox 97 01/31/23 17:15 FiO2 Intake & Output 01/31/23 01/31/23 02/01/23 06:59 18:59 06:59 Weight 52.163 kg Other: Voiding Method Toilet # Voids 3 2 - Labs CBC & Chem 7: 01/31/23 05:41 01/31/23 05:41 Labs: Abnormal Lab Results - Last 24 Hours (Table) 01/30/23 01/31/23 01/31/23 Range/Units 20:57 05:41 11:11 Creatinine 0.5 L (0.6-1.5) mg/dL BUN/Creatinine Ratio 32.60 H (12.00-20.00) Ratio POC Glucose (mg/dL) 206 H 229 H (70-110) mg/dL 01/31/23 01/31/23 Range/Units 16:47 19:32 Creatinine (0.6-1.5) mg/dL BUN/Creatinine Ratio (12.00-20.00) Ratio POC Glucose (mg/dL) 140 H 147 H (70-110) mg/dL
[2023-01-31] MEDS: ATORVASTATIN 40 MG TAB PO SCH (21:18)
[2023-01-31] MEDS: traZODone HCL 100 MG TAB PO SCH (21:18)
[2023-02-01 05:15] LABS: Glucose,Whole Blood 102 mg/dL (70-110)
[2023-02-01] MEDS: PANTOPRAZOLE 40 MG TABLET PO SCH (06:39)
[2023-02-01] MEDS: LEVOTHYROXINE 50 MCG TAB PO SCH (06:39)
[2023-02-01] MEDS: INSULIN ASPART (NovoLOG) 100 UNIT/ML VIAL SQ SCH ×2 (06:39→12:06)
[2023-02-01 08:00] VITALS: BP 109/73; PULSE 69; RESP 15; TEMP 97.8
[2023-02-01] MEDS: ENOXAPARIN 40 MG/0.4 ML SYRINGE SQ SCH (08:59)
[2023-02-01] MEDS: ASPIRIN 81 MG PO SCH (08:59)
[2023-02-01] MEDS: DOXYCYCLINE 100 MG CAP PO SCH (08:59)
[2023-02-01] MEDS: busPIRone HCl 5 MG TAB PO SCH (08:59)
[2023-02-01] MEDS: levETIRAcetam 500 MG TAB PO SCH (08:59)
[2023-02-01] MEDS: DULoxetine HCL 60 MG CAPSULE.DR PO SCH (08:59)
[2023-02-01] MEDS: METHADONE 10 MG TAB PO SCH (08:59)
[2023-02-01] MEDS: GABAPENTIN 400 MG CAP PO SCH (08:59)
[2023-02-01] MEDS: METOPROLOL TARTRATE 12.5 MG TAB PO SCH (08:59)
[2023-02-01] MEDS: guaiFENesin 600 MG TABLET.ER PO SCH (09:00)
[2023-02-01] MEDS: CLOPIDOGREL 75 MG TAB PO SCH (09:00)
[2023-02-01] MEDS: MONTELUKAST 10 MG TAB PO SCH (09:00)
[2023-02-01] MEDS: metFORMIN 500 MG TAB PO SCH (09:00)
[2023-02-01 11:13] LABS: Glucose,Whole Blood 133 mg/dL (70-110)
--- NOTE | 2023-02-02 06:26 | P.DS ---
Providers Date of admission: 01/25/23 17:36 Expected date of discharge: 02/01/23 Attending physician: Ej Eden Primary care physician: Huyen Gutierrez Hospital Course: Final diagnosis Covid 19 infection with fatigue and malaise Acute bronchitis Status post fall prior to admission Coronary artery disease history of CABG Ischemic cardiomyopathy ejection fraction 20 percent Chronic pain syndrome History of seizure disorder Diabetes mellitus type 2 Hypothyroid GI prophylaxis DVT prophylaxis Full code Discharge disposition Patient is being discharged in a stable condition with guarded prognosis to home with home care. Patient will follow-up with Dr. Gutierrez in the outpatient setting upon discharge. Patient is to continue with current medications and outpatient follow-up with pain management as scheduled. Total time taken is greater than 35 minutes. Hospital course This is a 68-year-old female who was recently admitted with generalized weakness and malaise and found to have COVID-19 infection being closely monitored. Patient was significant weakness was evaluated by physical therapy and reportedly would not qualify for rehab this patient was walking independently. Patient maintained on vitamin and zinc supplements as well as her home medications and has been instructed to follow-up with pain management outpatient. Patient to follow-up with primary care provider on discharge. Patient will be returning home with her sister and Homecare is being arranged. Currently no reports of chest pain, shortness of breath, or palpitations. Patient is afebrile. No reports of nausea or vomiting and patient is tolerating diet. Patient will be discharged home today. Guarded prognosis and high risk for readmission given patient's noncompliance. Physical exam: Gen: This is a 68-year-old female who is awake, alert and oriented 3, well- developed, well-nourished, elderly-appearing, unkempt HEENT: Head is atraumatic, normocephalic. Pupils equal, round. Sclerae is anicteric. NECK: Supple. No JVD. No lymphadenopathy. No thyromegaly. LUNGS: Clear to auscultation. No wheezes or rhonchi. No intercostal retractions. HEART: Regular rate and rhythm. No murmur. ABDOMEN: Soft. Bowel sounds are present. No masses. No tenderness. EXTREMITIES: No pedal edema. No calf tenderness. NEUROLOGICAL: Patient is awake, alert and oriented x3. Cranial nerves 2 through 12 are grossly intact. Please refer to medication reconciliation sheet for a list of medications. The impression and plan of care has been dictated by Peggy Jernigan, Nurse Practitioner as directed. Dr. Meek MD I have performed a history and examination and MDM of this patient, discussed the same with the dictator, and agree with the dictator's assessment and plan as written ,documented as a scribe. Based on total visit time, I have performed more than 50% of the visit. Patient Condition at Discharge: Good Plan - Discharge Summary New Discharge Prescriptions: New guaiFENesin [Mucinex] 600 mg PO Q12HR 7 Days #14 tab Albuterol Inhaler [Ventolin Hfa Inhaler] 2 puff INHALATION RT-Q6H PRN 30 Days #1 each PRN Reason: Shortness Of Breath Or Wheezin Ascorbic Acid [Vitamin C] 500 mg PO DAILY #30 tablet Doxycycline [Vibramycin] 100 mg PO BID 7 Days #14 cap Zinc Sulfate 220 mg PO DAILY 14 Days #14 capsule Continue Gabapentin 800 mg PO TID traZODone HCL 200 mg PO HS DULoxetine HCL [Cymbalta] 120 mg PO DAILY levETIRAcetam [Keppra] 1,000 mg PO BID Montelukast [Singulair] 10 mg PO DAILY Methadone [Dolophine] 10 mg PO TID Levothyroxine Sodium [Synthroid] 50 mcg PO DAILY Aspirin 81 mg PO DAILY tab Clopidogrel [Plavix] 75 mg PO DAILY tab Pantoprazole [Protonix] 40 mg PO AC-BRKFST tab Acetaminophen Tab [Tylenol] 650 mg PO Q6HR PRN tab PRN Reason: Fever And/ Or Pain metFORMIN HCL 500 mg PO BID Atorvastatin [Lipitor] 40 mg PO HS 30 Days #30 tab busPIRone HCL 5 mg PO DAILY Metoprolol Tartrate [Lopressor] 12.5 mg PO BID tab oxyCODONE-APAP 10-325MG [Percocet 10-325 mg] 1 tab PO Q8HR PRN PRN Reason: Pain Discharge Medication List Gabapentin 800 mg PO TID 10/27/16 [History] DULoxetine HCL [Cymbalta] 120 mg PO DAILY 08/02/18 [History] levETIRAcetam [Keppra] 1,000 mg PO BID 08/02/18 [History] traZODone HCL 200 mg PO HS 08/02/18 [History] Levothyroxine Sodium [Synthroid] 50 mcg PO DAILY 09/05/22 [History] Methadone [Dolophine] 10 mg PO TID 09/05/22 [History] Montelukast [Singulair] 10 mg PO DAILY 09/05/22 [History] Aspirin 81 mg PO DAILY tab 09/10/22 [Rx] Atorvastatin [Lipitor] 40 mg PO HS 30 Days #30 tab 09/10/22 [Rx] busPIRone HCL 5 mg PO DAILY 10/20/22 [History] Acetaminophen Tab [Tylenol] 650 mg PO Q6HR PRN tab 11/10/22 [Rx] Clopidogrel [Plavix] 75 mg PO DAILY tab 11/10/22 [Rx] Metoprolol Tartrate [Lopressor] 12.5 mg PO BID tab 11/10/22 [Rx] Pantoprazole [Protonix] 40 mg PO AC-BRKFST tab 11/10/22 [Rx] metFORMIN HCL 500 mg PO BID 01/25/23 [History] oxyCODONE-APAP 10-325MG [Percocet 10-325 mg] 1 tab PO Q8HR PRN 01/25/23 [History] Albuterol Inhaler [Ventolin Hfa Inhaler] 2 puff INHALATION RT-Q6H PRN 30 Days #1 each 02/01/23 [Rx] Ascorbic Acid [Vitamin C] 500 mg PO DAILY #30 tablet 02/01/23 [Rx] Doxycycline [Vibramycin] 100 mg PO BID 7 Days #14 cap 02/01/23 [Rx] Zinc Sulfate 220 mg PO DAILY 14 Days #14 capsule 02/01/23 [Rx] guaiFENesin [Mucinex] 600 mg PO Q12HR 7 Days #14 tab 02/01/23 [Rx] Follow up Appointment(s)/Referral(s): [facility] [NON-STAFF] - As Needed Huyen Gutierrez DO [Primary Care Provider] - 1-2 days (office not answering Please call to schedule appointment ) Patient Instructions/Handouts: COVID-19 (Coronavirus Disease 2019) (DC) Activity/Diet/Wound Care/Special Instructions: Activity Limited until follow-up Follow-up with primary care provider on discharge Continue taking medications as prescribed Discharge Disposition: HOME WITH HOME HEALTH SERVICES
== END 2023-02-01 13:37 | disposition home health service (06) | DRG 178 ==
LOC: EC 12:07 → 4SSUR 17:36
PROVIDERS: ADMIT Hospitalist; ATTEND Hospitalist
DX: U07.1 COVID-19 (principal); E87.1 Hypo-osmolality and hyponatremia; J20.8 Acute bronchitis due to other specified organisms; F17.210 Nicotine dependence, cigarettes, uncomplicated; E78.5 Hyperlipidemia, unspecified; F32.A Depression, unspecified; G40.909 Epilepsy, unspecified, not intractable, without status epilepticus; G89.4 Chronic pain syndrome; I10 Essential (primary) hypertension; I25.10 Atherosclerotic heart disease of native coronary artery without angina pectoris; I25.5 Ischemic cardiomyopathy; Z91.81 History of falling; Z79.02 Long term (current) use of antithrombotics/antiplatelets; Z79.4 Long term (current) use of insulin; Z79.82 Long term (current) use of aspirin; Z79.84 Long term (current) use of oral hypoglycemic drugs; Z79.890 Hormone replacement therapy; Z79.891 Long term (current) use of opiate analgesic; Z79.899 Other long term (current) drug therapy; Z82.49 Family history of ischemic heart disease and other diseases of the circulatory system; Z91.199 Patient's noncompliance with other medical treatment and regimen due to unspecified reason; Z95.1 Presence of aortocoronary bypass graft; Z88.6 Allergy status to analgesic agent; Z88.1 Allergy status to other antibiotic agents
CPT/HCPCS: 36415; 70450; 71046; 72125; 80048; 80053; 80306; 81003; 85025; 85027; 85610; 85730; 86140; 87636; 94640; 94760; 96361; 96374; 99285